=== PATIENT | female | born 1940 | race Caucasian/White ===

== ENCOUNTER 2018-08-17 19:20 | Inpatient (IN) | payer MEDICARE ==
[2018-08-17] MEDS ORDERED: OXYCODONE-ACETAMINOPHEN 5-325 MG TABLET PO ONE (20:05)
--- NOTE | 2018-08-17 20:08 | ER Document Report ---
ED Fall - General Chief Complaint: Fall Stated Complaint: FALL Time Seen by Provider: 08/17/18 19:55 Mode of Arrival: Stretcher Information source: Patient - HPI Patient complains to provider of: fall, left leg pain Occurred: Just prior to arrival Where: Home Context: Lost balance Associated symptoms: Became dizzy/fainted Location of injury/pain: Head, Hip, Knee, Thigh Quality of pain: Achy Severity: Moderate Pain Level: 4 Notes: Patient is a 77-year-old female presenting to the emergency room status post fall at home, states she has dizzy spells and falls a lot, today she felt dizzy, fell to her left side and was unable to get up secondary to pain in her left hip and thigh, she does report that she had her head but denies any loss of consciousness, no headache, no vision changes or vomiting, she does report tingling sensation in her upper extremities - Related data Allergies/Adverse Reactions: No Known Allergies Allergy (Verified 08/17/18 19:38) Past Medical History - General Information source: Patient - Social History Smoking Status: Unknown if Ever Smoked Family History: Reviewed & Not Pertinent Review of Systems - Review of Systems Constitutional: No symptoms reported EENT: No symptoms reported Cardiovascular: Dizziness Respiratory: No symptoms reported Gastrointestinal: No symptoms reported Genitourinary: No symptoms reported Female Genitourinary: No symptoms reported Musculoskeletal: See HPI Skin: No symptoms reported Hematologic/Lymphatic: No symptoms reported Neurological/Psychological: Tingling -: Yes All other systems reviewed and negative Physical Exam - Vital signs Vitals: Resp Pulse Ox 20 99 08/17/18 19:30 08/17/18 19:30 Interpretation: Normal - General General appearance: Appears well, Alert - HEENT Head: Normocephalic, Atraumatic Eyes: Normal Conjunctiva: Normal Extraocular movements intact: Yes Eyelashes: Normal Pupils: PERRL Neck: Other - Tender to palpate in right paraspinal musculature down into the right trapezius muscle - Respiratory Respiratory status: No respiratory distress Chest status: Nontender Breath sounds: Normal Chest palpation: Normal - Cardiovascular Rhythm: Regular Heart sounds: Normal auscultation Murmur: No - Abdominal Inspection: Normal Distension: No distension Bowel sounds: Normal Tenderness: Nontender Organomegaly: No organomegaly - Back Back: Normal, Nontender - Extremities General upper extremity: Normal inspection, Nontender, Normal color, Normal ROM, Normal temperature General lower extremity: Normal temperature. No: Sho's sign Hip: Tender - Tender to palpate in left hip radiating down into the femur, pain with range of motion testing, distal sensation and motor is intact with 2+ DP pulses - Neurological Neuro grossly intact: Yes Cognition: Normal Orientation: AAOx4 [place] Coma Scale Eye Opening: Spontaneous [place] Coma Scale Verbal: Oriented [place] Coma Scale Motor: Obeys Commands [place] Coma Scale Total: 15 Speech: Normal Motor strength normal: LUE, RUE, LLE, RLE Sensory: Normal - Psychological Associated symptoms: Normal affect, Normal mood - Skin Skin Temperature: Warm Skin Moisture: Dry Skin Color: Normal Course - Re-evaluation Re-evalutation: 08/17/18 21:24 Patient discussed with on-call orthopedics, Dr. Rae who agrees to consult and see patient in the morning 08/17/18 21:29 Plan to admit was discussed with patient and at bedside who are in agreement, plan was discussed with hospitalist to request a call back when patient's labs are completed 08/17/18 22:30 Patient was discussed with the hospitalist once again who has already placed orders for admission, he has no additional questions at this time - Vital Signs Vital signs: Temp Pulse Resp BP Pulse Ox 98.2 F 15 150/72 H 99 08/17/18 19:36 08/17/18 23:01 08/17/18 23:01 08/17/18 23:01 - Laboratory Result Diagrams: 08/17/18 21:35 08/17/18 21:35 Laboratory results interpreted by me: 08/17/18 08/17/18 08/17/18 21:35 21:35 21:35 Hgb 11.6 L Hct 33.9 L BUN 33 H Est GFR ( Amer) 58 L Est GFR (Non-Af Amer) 48 L Glucose 173 H Creatine Kinase 28 L Total Protein 6.1 L Urine Nitrite Ur Leukocyte Esterase Urine Ascorbic Acid 08/17/18 22:11 Hgb Hct BUN Est GFR ( Amer) Est GFR (Non-Af Amer) Glucose Creatine Kinase Total Protein Urine Nitrite POSITIVE H Ur Leukocyte Esterase TRACE H Urine Ascorbic Acid 40 H - Diagnostic Test Radiology reviewed: Image reviewed, Reports reviewed Discharge - Discharge Clinical Impression: Hip fracture Qualifiers: Encounter type: initial encounter Fracture type: closed Laterality: left Qualified Code(s): S72.002A - Fracture of unspecified part of neck of left femur, initial encounter for closed fracture Condition: Stable Disposition: ADMITTED INPATIENT Admitting Provider: Hospitalist Unit Admitted: Medical Floor
--- NOTE | 2018-08-17 21:20 | RADIOLOGY REPORT (SQ) ---
EXAM DESCRIPTION: XR FEMUR 2 VIEWS, XR HIP 2 OR MORE VIEWS, XR KNEE 4 OR MORE VIEWS COMPLETED DATE/TME: 08/17/2018 20:05 CLINICAL HISTORY: 77 years Female, fall COMPARISON: None. 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 There is either a large loose body or an old fracture of the inferior pole patella. No acute fracture or dislocation of the knee. There is a mildly displaced intertrochanteric femoral neck fracture. No dislocation. Mild degenerative changes in both hip joints. Soft tissues are unremarkable except for vascular calcifications. IMPRESSION: Mildly displaced intratrochanteric left femoral neck fracture.
--- NOTE | 2018-08-17 21:22 | RADIOLOGY REPORT (SQ) ---
XR CHEST 1 VIEW HISTORY: Fall. COMPARISON: None. FINDINGS: The heart size is mildly enlarged with pacemaker intact. The lungs are clear. No pleural effusion or pneumothorax is identified. IMPRESSION: No acute cardiopulmonary abnormality.
--- NOTE | 2018-08-17 21:26 | RADIOLOGY REPORT (SQ) ---
EXAM DESCRIPTION: CT HEAD WITHOUT IV CONTRAST COMPLETED DATE/TME: 08/17/2018 20:05 CLINICAL HISTORY: 77 years, Female, injury COMPARISON: None. TECHNIQUE: CT brain without contrast. This exam was performed according to our departmental dose optimization program which includes use of automated exposure control, adjustment of the mA and/or kV according to patient size and/or use of iterative reconstruction technique. Images stored on PACS. All CT scanners at this facility use dose modulation, iterative reconstruction, and/or weight based dosing when appropriate to reduce radiation dose to as low as reasonably achievable (ALARA). [facility]: Dose Right [facility]: CareDose [facility]: Dose Right [facility]: Teradose 4D [facility]: [employer] LIMITATIONS: None. FINDINGS: Multifocal regions of patchy hypoattenuation are present in a subcortical and periventricular deep white matter distribution, nonspecific; however, most likely represent small vessel ischemic disease, age indeterminate. The ventricles, and sulci are enlarged compatible with underlying volume loss. The medrano-white matter differentiation is preserved. There is no mass effect, midline shift, intra- or extra-axial fluid collection/acute hemorrhage. The osseous structures are unremarkable. The paranasal sinuses and mastoid air cells are clear. Incidentally noted severe narrowing at the level of the craniocervical junction secondary to dense callus formation and irregularity, hypertrophy of the clivus raising the question of sequela of prior trauma, congenital etiology and/or inflammatory arthropathy. IMPRESSION: 1. No acute intracranial abnormalities. Nonspecific white matter change most likely small vessel ischemic disease, age indeterminate. 2. CT is insensitive for early evaluation of acute stroke. If there is clinical concern for acute ischemia, an MRI may be considered. 3. Incidentally noted severe narrowing at the level of the craniocervical junction secondary to dense callus formation and irregularity, hypertrophy of the clivus raising the question of sequela of prior trauma, congenital etiology and/or inflammatory arthropathy. TECHNICAL DOCUMENTATION: Quality ID # [id number]: Final reports with documentation of one or more dose reduction techniques (e.g., Automated exposure control, adjustment of the mA and/or kV according to patient size, use of iterative reconstruction technique) copyright 2011 [employer]- All Rights Reserved
--- NOTE | 2018-08-17 21:33 | RADIOLOGY REPORT (SQ) ---
EXAM DESCRIPTION: CT CERVICAL SPINE WITHOUT IV CONTRAST COMPLETED DATE/TME: 08/17/2018 20:05 CLINICAL HISTORY: 77 years, Female, injury COMPARISON: None. TECHNIQUE: Cervical spine CT was performed without contrast. Multiplanar reformatted images were provided. This exam was performed according to our departmental dose optimization program which includes use of automated exposure control, adjustment of the mA and/or kV according to patient size and/or use of iterative reconstruction technique. Images stored on PACS. All CT scanners at this facility use dose modulation, iterative reconstruction, and/or weight based dosing when appropriate to reduce radiation dose to as low as reasonably achievable (ALARA). [facility]: Dose Right [facility]: CareDose [facility]: Dose Right [facility]: Teradose 4D [facility]: [employer] LIMITATIONS: None. FINDINGS: Incidentally noted severe narrowing at the level of the craniocervical junction secondary to dense pannus formation and irregularity, hypertrophy of the clivus raising the question of sequela of prior trauma, congenital etiology and/or inflammatory arthropathy. Trace anterolisthesis of C3 relative to C4 suspected secondary to facet hypertrophy at that level There is otherwise normal alignment of the cervical spine without fracture or subluxation. The facets are normal in alignment bilaterally. The posterior elements including the spinous processes are intact. Straightening of the cervical spine which may be secondary to positioning for the examination. Morphology and attenuation of the vertebral bodies and intervertebral disc spaces is compatible with multilevel degenerative change. Mild posterior disk bulge extending into the central spinal canal by approximately 4 mm present at the C4-5 vertebral level. Posterior osseous spurring and disk bulge with at least mild central spinal canal narrowing present at the C5-6 and C6-7 vertebral levels. Multilevel moderate to severe neural foraminal narrowing present throughout the cervical spine involving the C5-6, C6-7 vertebral levels secondary to uncovertebral joint and facet hypertrophy. Bilateral facet hypertrophy throughout the cervical spine. The pre-and paravertebral soft tissues are within normal limits. The airway is patent. Extraspinal imaging is within normal limits. IMPRESSION: 1. Straightening of the cervical spine which may be secondary to positioning for the examination versus spasm. 2. Multilevel degenerative change without fracture or acute subluxation. 3. Incidentally noted severe narrowing at the level of the craniocervical junction secondary to dense pannus formation and irregularity, hypertrophy of the clivus raising the question of sequela of prior trauma, congenital etiology and/or inflammatory arthropathy. If not previously performed, follow-up evaluation with MRI may be considered. TECHNICAL DOCUMENTATION: Quality ID # [id number]: Final reports with documentation of one or more dose reduction techniques (e.g., Automated exposure control, adjustment of the mA and/or kV according to patient size, use of iterative reconstruction technique) copyright 2011 [employer]- All Rights Reserved
[2018-08-17 21:44] LABS: ABSOLUTE BASOPHILS # (AUTO) 0.1 10^3/uL (0.0-0.2); ABSOLUTE EOSINOPHILS # (AUTO) 0.1 10^3/uL (0.0-0.6); ABSOLUTE LYMPHOCYTES (AUTO) 1.5 10^3/uL (0.5-4.7); ABSOLUTE MONOCYTES (AUTO) 0.5 10^3/uL (0.1-1.4); ABSOLUTE NEUT (AUTO) 6.4 10^3/uL (1.7-8.2); BASOPHILS % (AUTO) 0.7 % (0-2); EOSINOPHILS % (AUTO) 0.7 % (0-6); HEMATOCRIT 33.9 % (36.0-47.0); HEMOGLOBIN 11.6 g/dL (12.0-15.5); LYMPHOCYTES % (AUTO) 17.3 % (13-45); MEAN CORPUSCULAR HEMOGLOBIN 29.9 pg (27.0-33.4); MEAN CORPUSCULAR HGB CONC 34.1 g/dL (32.0-36.0); MEAN CORPUSCULAR VOLUME 88 fl (80-97); MONOCYTES % (AUTO) 6.4 % (3-13); PLATELET COUNT 199 10^3/uL (150-450); RED BLOOD COUNT 3.86 10^6/uL (3.72-5.28); RED CELL DISTRIBUTION WIDTH 13.3 % (11.5-14.0); SEGMENTED NEUTROPHILS % (AUTO) 74.9 % (42-78); TOTAL CELLS COUNTED % (AUTO) 100 %; WHITE BLOOD COUNT 8.5 10^3/uL (4.0-10.5)
[2018-08-17] MEDS ORDERED: GLUCAGON,HUMAN RECOMB 1 MG INJ IM PRN (21:46)
[2018-08-17] MEDS ORDERED: DEXTROSE 40% GEL 15 GM TUBE PO PRN ×2 (21:46)
[2018-08-17] MEDS ORDERED: IPRATROPIUM/ALBUTEROL 0.5-2.5 MG/3 ML AMPUL NEB PRN (21:46)
[2018-08-17] MEDS ORDERED: DEXTROSE 50%-WATER 25 GM/50 ML DISP.SYRIN IV PRN ×2 (21:46)
[2018-08-17] MEDS ORDERED: MAG HYDROX/AL HYDROX/SIMETH SUSP 30 ML UDCUP PO PRN (21:46)
[2018-08-17 21:55] LABS: INTERNATIONAL RATION (INR) 0.93; PROTHROMBIN TIME 12.9 SEC (11.4-15.4)
[2018-08-17 21:56] LABS: PARTIAL THROMBOPLASTIN TIME 24.8 SEC (23.5-35.8)
[2018-08-17 22:00] LABS: ALANINE AMINOTRANSFERASE 17 U/L (9-52); ALBUMIN 3.5 g/dL (3.5-5.0); ALKALINE PHOSPHATASE 67 U/L (38-126); ANION GAP 6 (5-19); ASPARTATE AMINO TRANSFERASE 18 U/L (14-36); BILIRUBIN,DIRECT 0.3 mg/dL (0.0-0.4); BILIRUBIN,TOTAL 0.8 mg/dL (0.2-1.3); BLOOD UREA NITROGEN 33 mg/dL (7-20); CALCIUM 9.3 mg/dL (8.4-10.2); CARBON DIOXIDE 25 mmol/L (22-30); CHLORIDE 107 mmol/L (98-107); GLUCOSE 173 mg/dL (75-110); POTASSIUM 4.1 mmol/L (3.6-5.0); TOTAL PROTEIN 6.1 g/dL (6.3-8.2)
[2018-08-17] MEDS: HYDROCODONE/ACETAMINOPHEN 7.5-325 MG TABLET PO PRN (22:13)
[2018-08-17] MEDS: HEPARIN SOD (PORCINE) 5,000 UNIT/ML 1 ML SYRINGE SUBCUT SCH (22:14)
[2018-08-17 22:25] LABS: APPEARANCE,URINE CLOUDY; BILIRUBIN,URINE NEGATIVE (NEGATIVE); COLOR,URINE YELLOW; GLUCOSE, URINE NEGATIVE (NEGATIVE); KETONES,URINE NEGATIVE (NEGATIVE); LEUKOCYTE ESTERASE,URINE TRACE (NEGATIVE); NITRITE,URINE POSITIVE (NEGATIVE); PROTEIN,URINE NEGATIVE (NEGATIVE); URINE SPECIFIC GRAVITY 1.013; UROBILINOGEN,URINE NEGATIVE mg/dL (<2.0)
[2018-08-17 22:36] LABS: CREATINE KINASE MB 0.71 ng/mL (<4.55); TROPONIN I 0.028 ng/mL
[2018-08-18] MEDS ORDERED: NORMAL SALINE 1000 ML 1,000 ML IV ONE (02:30)
[2018-08-18 03:35] LABS: ABSOLUTE BASOPHILS # (AUTO) 0.1 10^3/uL (0.0-0.2); ABSOLUTE EOSINOPHILS # (AUTO) 0.1 10^3/uL (0.0-0.6); ABSOLUTE LYMPHOCYTES (AUTO) 1.4 10^3/uL (0.5-4.7); ABSOLUTE MONOCYTES (AUTO) 0.6 10^3/uL (0.1-1.4); ABSOLUTE NEUT (AUTO) 5.5 10^3/uL (1.7-8.2); BASOPHILS % (AUTO) 0.8 % (0-2); EOSINOPHILS % (AUTO) 0.8 % (0-6); HEMATOCRIT 31.9 % (36.0-47.0); LYMPHOCYTES % (AUTO) 18.3 % (13-45); MEAN CORPUSCULAR HGB CONC 34.4 g/dL (32.0-36.0); MEAN CORPUSCULAR VOLUME 87 fl (80-97); PLATELET COUNT 185 10^3/uL (150-450); RED BLOOD COUNT 3.66 10^6/uL (3.72-5.28); RED CELL DISTRIBUTION WIDTH 13.5 % (11.5-14.0); SEGMENTED NEUTROPHILS % (AUTO) 72.1 % (42-78); TOTAL CELLS COUNTED % (AUTO) 100 %; WHITE BLOOD COUNT 7.6 10^3/uL (4.0-10.5)
[2018-08-18 03:58] LABS: ANION GAP 6 (5-19); BLOOD UREA NITROGEN 32 mg/dL (7-20); CARBON DIOXIDE 26 mmol/L (22-30); CHLORIDE 108 mmol/L (98-107); CREATINE KINASE 29 U/L (30-135); GLUCOSE 159 mg/dL (75-110); POTASSIUM 4.2 mmol/L (3.6-5.0); SODIUM 139.9 mmol/L (137-145)
[2018-08-18 04:09] LABS: CREATINE KINASE MB 0.74 ng/mL (<4.55); TROPONIN I 0.024 ng/mL
[2018-08-18] MEDS: HEPARIN SOD (PORCINE) 5,000 UNIT/ML 1 ML SYRINGE SUBCUT SCH ×3 (05:08→22:30)
[2018-08-18] MEDS: HYDROCODONE/ACETAMINOPHEN 7.5-325 MG TABLET PO PRN (05:19)
--- NOTE | 2018-08-18 06:31 | PDOC H&P ---
History of Present Illness Admission Date/PCP: 08/17/18 22:20 YAMILKA EPSTEIN MD Patient complains of: Fall c left hip pain History of Present Illness: VALE SOTO is a 77 year old female with a past medical history of congestive heart failure, coronary artery disease, rheumatic heart disease, permanent pacemaker, diabetes and dizziness with recurrent falls. Patient presents after a fall at home after feeling dizzy she fell to her left side and was unable to stand or bear weight. She denies recent change of medication, focal weakness, loss of consciousness, headache, blurred vision, nausea or vomiting. In the emergency room she is found to have a minimally displaced left trochanteric femoral fracture and referred to the hospitalist for admission. Past Medical History Cardiac Medical History: Reports: Coronary Artery Disease, Myocardial Infarction, Other - Rheumatic heart disease Endocrine Medical History: Reports: Diabetes Mellitus Type 2 Psychiatric Medical History: Denies: Depression Past Surgical History Past Surgical History: Reports: Pacemaker Social History Information Source: Patient, Emergency Med Personnel, [facility] Records Lives with: Alone Smoking Status: Never Smoker Frequency of Alcohol Use: None Hx Recreational Drug Use: No Drugs: None Hx Prescription Drug Abuse: No - Advance Directive Resuscitation Status: Full Code Family History Family History: Hypertension Parental Family History Reviewed: Yes Children Family History Reviewed: Yes Sibling(s) Family History Reviewed.: Yes Medication/Allergy Allergies/Adverse Reactions: No Known Allergies Allergy (Verified 08/17/18 19:38) Review of Systems Constitutional: PRESENT: as per HPI, weakness - Recurrent dizziness with falls upon standing. ABSENT: chills, fever(s), headache(s), weight gain, weight loss Eyes: ABSENT: visual disturbances Ears: ABSENT: hearing changes Cardiovascular: ABSENT: chest pain, dyspnea on exertion, edema, orthropnea, palpitations Respiratory: ABSENT: cough, hemoptysis Gastrointestinal: ABSENT: abdominal pain, constipation, diarrhea, hematemesis, hematochezia, nausea, vomiting Genitourinary: ABSENT: dysuria, hematuria Musculoskeletal: ABSENT: joint swelling Integumentary: ABSENT: rash, wounds Neurological: ABSENT: abnormal gait, abnormal speech, confusion, dizziness, focal weakness, syncope Psychiatric: ABSENT: anxiety, depression, homidical ideation, suicidal ideation Endocrine: ABSENT: cold intolerance, heat intolerance, polydipsia, polyuria Hematologic/Lymphatic: ABSENT: easy bleeding, easy bruising Physical Exam Vital Signs: Temp Pulse Resp BP Pulse Ox 98.1 F 19 141/60 H 69 L 08/18/18 00:05 08/18/18 00:05 08/18/18 00:05 08/18/18 00:05 Intake & Output 08/16/18 08/17/18 08/18/18 11:59 11:59 11:59 Weight 58.2 kg General appearance: PRESENT: cooperative, mild distress, thin, well-developed, well-nourished Head exam: PRESENT: atraumatic, normocephalic Eye exam: PRESENT: conjunctiva pink, EOMI, PERRLA. ABSENT: scleral icterus Ear exam: PRESENT: normal external ear exam Mouth exam: PRESENT: moist, tongue midline Neck exam: ABSENT: carotid bruit, JVD, lymphadenopathy, thyromegaly Respiratory exam: PRESENT: clear to auscultation joann. ABSENT: rales, rhonchi, wheezes Cardiovascular exam: PRESENT: RRR, systolic murmur. ABSENT: diastolic murmur, rubs Pulses: PRESENT: normal dorsalis pedis pul Vascular exam: PRESENT: normal capillary refill GI/Abdominal exam: PRESENT: normal bowel sounds, soft. ABSENT: distended, guarding, mass, organolmegaly, rebound, tenderness Rectal exam: PRESENT: deferred Extremities exam: PRESENT: full ROM, tenderness - Left upper extremity pain in range of motion. ABSENT: calf tenderness, clubbing, pedal edema Neurological exam: PRESENT: alert, awake, oriented to person, oriented to place, oriented to time, oriented to situation, CN II-XII grossly intact. ABSENT: mo tor sensory deficit Psychiatric exam: PRESENT: appropriate affect, normal mood. ABSENT: homicidal ideation, suicidal ideation Skin exam: PRESENT: dry, intact, warm. ABSENT: cyanosis, rash Results Laboratory Results: 08/18/18 03:27 08/18/18 03:27 08/17/18 08/17/18 08/17/18 21:35 21:35 22:11 WBC 8.5 RBC 3.86 Hgb 11.6 L Hct 33.9 L MCV 88 MCH 29.9 MCHC 34.1 RDW 13.3 Plt Count 199 Seg Neutrophils % 74.9 Lymphocytes % 17.3 Monocytes % 6.4 Eosinophils % 0.7 Basophils % 0.7 Absolute Neutrophils 6.4 Absolute Lymphocytes 1.5 Absolute Monocytes 0.5 Absolute Eosinophils 0.1 Absolute Basophils 0.1 Sodium 138.0 Potassium 4.1 Chloride 107 Carbon Dioxide 25 Anion Gap 6 BUN 33 H Creatinine 1.11 Est GFR ( Amer) 58 L Est GFR (Non-Af Amer) 48 L Glucose 173 H Calcium 9.3 Total Bilirubin 0.8 AST 18 ALT 17 Alkaline Phosphatase 67 Total Protein 6.1 L Albumin 3.5 Urine Color YELLOW Urine Appearance CLOUDY Urine pH 5.0 Ur Specific [place] 1.013 Urine Protein NEGATIVE Urine Glucose (UA) NEGATIVE Urine Ketones NEGATIVE Urine Blood NEGATIVE Urine Nitrite POSITIVE H Ur Leukocyte Esterase TRACE H Urine WBC (Auto) 7 Urine RBC (Auto) 1 08/18/18 08/18/18 03:27 03:27 WBC 7.6 RBC 3.66 L Hgb 11.0 L Hct 31.9 L MCV 87 MCH 30.0 MCHC 34.4 RDW 13.5 Plt Count 185 Seg Neutrophils % 72.1 Lymphocytes % 18.3 Monocytes % 8.0 Eosinophils % 0.8 Basophils % 0.8 Absolute Neutrophils 5.5 Absolute Lymphocytes 1.4 Absolute Monocytes 0.6 Absolute Eosinophils 0.1 Absolute Basophils 0.1 Sodium 139.9 Potassium 4.2 Chloride 108 H Carbon Dioxide 26 Anion Gap 6 BUN 32 H Creatinine 1.06 Est GFR ( Amer) > 60 Est GFR (Non-Af Amer) 50 L Glucose 159 H Calcium 9.0 Total Bilirubin AST ALT Alkaline Phosphatase Total Protein Albumin Urine Color Urine Appearance Urine pH Ur Specific [place] Urine Protein Urine Glucose (UA) Urine Ketones Urine Blood Urine Nitrite Ur Leukocyte Esterase Urine WBC (Auto) Urine RBC (Auto) 08/17/18 08/17/18 08/18/18 21:35 21:35 03:27 Creatine Kinase 28 L 29 L CK-MB (CK-2) 0.71 Troponin I 0.028 08/18/18 03:27 Creatine Kinase CK-MB (CK-2) 0.74 Troponin I 0.024 Impressions: Cervical Spine CT 08/17/18 20:05 IMPRESSION: 1. Straightening of the cervical spine which may be secondary to positioning for the examination versus spasm. 2. Multilevel degenerative change without fracture or acute subluxation. 3. Incidentally noted severe narrowing at the level of the craniocervical junction secondary to dense pannus formation and irregularity, hypertrophy of the clivus raising the question of sequela of prior trauma, congenital etiology and/or inflammatory arthropathy. If not previously performed, follow-up evaluation with MRI may be considered. TECHNICAL DOCUMENTATION: Quality ID # [id number]: Final reports with documentation of one or more dose reduction techniques (e.g., Automated exposure control, adjustment of the mA and/or kV according to patient size, use of iterative reconstruction technique) copyright 2010 [email or web address]- All Rights Reserved Femur X-Ray 08/17/18 20:05 IMPRESSION: Mildly displaced intratrochanteric left femoral neck fracture. Head CT 08/17/18 20:05 IMPRESSION: 1. No acute intracranial abnormalities. Nonspecific white matter change most likely small vessel ischemic disease, age indeterminate. 2. CT is insensitive for early evaluation of acute stroke. If there is clinical concern for acute ischemia, an MRI may be considered. 3. Incidentally noted severe narrowing at the level of the craniocervical junction secondary to dense callus formation and irregularity, hypertrophy of the clivus raising the question of sequela of prior trauma, congenital etiology and/or inflammatory arthropathy. TECHNICAL DOCUMENTATION: Quality ID # [id number]: Final reports with documentation of one or more dose reduction techniques (e.g., Automated exposure control, adjustment of the mA and/or kV according to patient size, use of iterative reconstruction technique) copyright 2010 [email or web address]- All Rights Reserved Hip X-Ray 08/17/18 20:05 IMPRESSION: Mildly displaced intratrochanteric left femoral neck fracture. Knee X-Ray 08/17/18 20:05 IMPRESSION: Mildly displaced intratrochanteric left femoral neck fracture. Chest X-Ray 08/17/18 20:34 IMPRESSION: No acute cardiopulmonary abnormality. Assessment & Plan - Diagnosis (1) Hip fracture Qualifiers: Encounter type: initial encounter Fracture type: closed Laterality: left Qualified Code(s): S72.002A - Fracture of unspecified part of neck of left femur, initial encounter for closed fracture Is this a current diagnosis for this admission?: Yes Plan: Symptomatic management, follow-up cardiology orthopedic consult (2) Congestive heart failure Is this a current diagnosis for this admission?: Yes Plan: Patient has an extensive but unclear cardiac history including coronary artery disease, congestive heart failure, rheumatic heart disease status post permanent pacemaker placement, patient denies current medication with exception to metformin. That said she appears compensated but concern for recurrent, increasing frequency of falls. Follow-up cardiology consult (3) Diabetes Is this a current diagnosis for this admission?: Yes Plan: Hold outpatient metformin, Humalog sliding scale every 6 hours as needed (4) Coronary artery disease Is this a current diagnosis for this admission?: Yes Plan: Apparently without current medications, unclear history will obtain records, follow-up cardiology consult - Time Time Spent: 30 to 50 Minutes - Inpatient Certification Medical Necessity: Need Close Monitoring Due to Risk of Patient Decompensation
[2018-08-18] MEDS: DOCUSATE SODIUM 100 MG CAPSULE PO SCH ×2 (10:05→17:32)
[2018-08-18 11:01] LABS: CREATINE KINASE MB 0.85 ng/mL (<4.55); TROPONIN I 0.028 ng/mL
[2018-08-18] MEDS ORDERED: DEXTROSE 5%-1/2 NORMAL SALINE 1,000 ML IV PRN (11:43)
--- NOTE | 2018-08-18 13:40 | EKG REPORT ---
SEVERITY:- ABNORMAL ECG - ATRIAL-SENSED VENTRICULAR-PACED RHYTHM : Confirmed by: Martha Zheng MD 18-Aug-2018 13:38:04
--- NOTE | 2018-08-18 14:43 | XCELERA REPORT ---
[address] [address] Transthoracic Echocardiogram Report Name: VALE SOTO Age: 77 yrs Gender: Female : 1940 Patient Status: Inpatient Patient Location: [address] [place] [address] Study Date: 08/18/2018 11:34 AM Height: 61 in Weight: 128 lb BSA: 1.6 m2 Procedure: A two-dimensional transthoracic echocardiogram with color flow and Doppler was performed. Study Quality: Fair. Reason For Study: Murmur / pre-op History: MURMUR / PRE-OP. Ordering Physician: SOCORRO HAYES Performed By: Vesta Kingston Interpretation Summary The left ventricle is moderately to severly dilated. There is normal left ventricular wall thickness. LV EF is less than 25% Left ventricular systolic function is severely reduced. There is severe global hypokinesis of the left ventricle. There is no thrombus. There is no ventricular septal defect visualized. The right ventricle is normal in size and function. There is a pacemaker lead in the right ventricle. The right atrium is normal. The left atrium is moderately dilated. There is mild to moderate mitral annular calcification. There is no evidence of mitral valve prolapse. There is no vegetation seen on the mitral valve. There is no mitral valve stenosis. There is a moderate amount of mitral regurgitation There is no aortic valvular vegetation. There is aortic sclerosis without aortic stenosis. There is no aortic valve stenosis There is no LVOT obstruction. No aortic regurgitation is present. There is no tricuspid stenosis. There is a mild amount of tricuspid regurgitation No significant pulmonary hypertension.RVSP is 28 to 33 mm of Hg , with RA mean of 5 to 10. There is no pulmonic valvular stenosis. There is a mild to moderate amount of pulmonic regurgitation The aortic root is normal size. The inferior vena cava appeared normal and decreased > 50% with respiration (RAP 5-10 mmHg) There is no pericardial effusion. MMode/2D Measurements & Calculations RVDd: 2.5 cm LVIDd: 6.0 cm FS: 11.0 % Ao root diam: 2.8 cm IVSd: 0.98 cm LVIDs: 5.3 cm EDV(Teich): 179.8 ml Ao root area: 6.3 cm2 LVPWd: 0.99 cm ESV(Teich): 137.6 ml LA dimension: 4.8 cm EF(Teich): 23.5 % Doppler Measurements & Calculations MV E max charlene: MV P1/2t max charlene: Ao V2 max: LV V1 max P.3 cm/sec 93.3 cm/sec 131.9 cm/sec 5.2 mmHg MV A max charlene: MV P1/2t: 44.5 msec Ao max PG: LV V1 max: 87.9 cm/sec MVA(P1/2t): 4.9 cm2 7.0 mmHg 114.0 cm/sec MV E/A: 1.1 MV dec slope: 613.6 cm/sec2 PA V2 max: PI end-d charlene: TR max charlene: MV P1/2t-pr_phl: 82.9 cm/sec 238.9 cm/sec 241.1 cm/sec 50.3 msec PA max PG: TR max P.8 mmHg 23.2 mmHg Left Ventricle The left ventricle is moderately to severly dilated. There is normal left ventricular wall thickness. LV EF is less than 25%. Left ventricular systolic function is severely reduced. There is severe global hypokinesis of the left ventricle. There is no thrombus. There is no ventricular septal defect visualized. Right Ventricle The right ventricle is normal in size and function. There is a pacemaker lead in the right ventricle. Atria The right atrium is normal. The left atrium is moderately dilated. Mitral Valve There is mild to moderate mitral annular calcification. There is no evidence of mitral valve prolapse. There is no vegetation seen on the mitral valve. There is no mitral valve stenosis. There is a moderate amount of mitral regurgitation. Aortic Valve There is no aortic valvular vegetation. There is aortic sclerosis without aortic stenosis. There is no aortic valve stenosis. There is no LVOT obstruction. No aortic regurgitation is present. Tricuspid Valve There is no tricuspid stenosis. There is a mild amount of tricuspid regurgitation. No significant pulmonary hypertension.RVSP is 28 to 33 mm of Hg , with RA mean of 5 to 10. Pulmonic Valve There is no pulmonic valvular stenosis. There is a mild to moderate amount of pulmonic regurgitation. Great Vessels The aortic root is normal size. The inferior vena cava appeared normal and decreased > 50% with respiration (RAP 5-10 mmHg). Effusions There is no pericardial effusion. : SOCORRO HAYES > Socorro Hayes
--- NOTE | 2018-08-18 16:41 | Progress Note ---
Provider Note Provider Note: PRELIMINARY CARDIOLOGY NOTE by Dr. Martha Zheng on 08/18/2018. Patient interviewed and examined. Also her records from [place] were reviewed. Formal consult to follow. IMPRESSION: 1. Coronary artery disease, history of UT, and history of coronary bypass graft surgery, without angina. 2. Ischemic cardiomyopathy with severely reduced LV ejection fraction. Patient is well compensated at present. 3. History of AICD placement: No recent firing of AICD. 4. Diabetes mellitus type 2 [id number]. 5. Accidental fall and fracture of right hip. Patient for surgery. RECOMMENDATION: 1. The patient will be moderate to high cardiac risk for this procedure. Recommend spinal anesthesia. Postoperatively we will place the patient in 3 W. or 3 S. and monitor the patient's rhythm on telemetry, and get serial EKGs and enzymes. We will also watch for development of any arrhythmias or congestive heart failure. 2. The patient is not on any anti-CAD or anti-ischemic cardiomyopathy medications. Would recommend postoperatively start the patient on aspirin 81 mg p.o. daily, BELEN inhibitor or ARB, and a beta-rosario, such as Toprol-XL. Will follow with you. Discussed with the anesthesiologist. Discussed with the hospitalist taking care of the patient.
--- NOTE | 2018-08-18 16:46 | PDOC PROGRESS REPORT ---
Subjective Progress Note for:: 08/18/18 Subjective:: This is a 77 year old female with a past medical history of congestive heart failure, coronary artery disease, rheumatic heart disease, permanent pacemaker, diabetes and history of recurrent falls who fell at home and sustained a minimally displaced left trochanteric femoral fracture. Patient says she fell "like she used to", that she was trying to ambulate and had recurrence of her "head spinning" like she often has and fell on the floor. No acute event overnight. Upon encounter, she say her left hip pain is controlled. She denies chest pain, SOB or palpitations. No fever or chills. Reason For Visit: LEFT HIP FRACTURE, DIABETES Physical Exam Vital Signs: Temp Pulse Resp BP Pulse Ox 98.5 F 72 16 127/92 H 96 08/18/18 14:25 08/18/18 15:34 08/18/18 15:34 08/18/18 14:25 08/18/18 15:34 Intake & Output 08/17/18 08/18/18 08/19/18 06:59 06:59 06:59 Intake Total 1000 Balance 1000 Weight 128 lb 4.944 oz General appearance: PRESENT: no acute distress, well-developed, well-nourished Head exam: PRESENT: atraumatic, normocephalic Eye exam: PRESENT: conjunctiva pink, EOMI, PERRLA. ABSENT: scleral icterus Ear exam: PRESENT: normal external ear exam Mouth exam: PRESENT: moist, tongue midline Neck exam: ABSENT: carotid bruit, JVD, lymphadenopathy, thyromegaly Respiratory exam: PRESENT: clear to auscultation joann. ABSENT: rales, rhonchi, wheezes Cardiovascular exam: PRESENT: RRR. ABSENT: bradycardia, irregular rhythm Pulses: PRESENT: normal dorsalis pedis pul GI/Abdominal exam: PRESENT: normal bowel sounds, soft. ABSENT: distended, guarding, mass, organolmegaly, rebound, tenderness Rectal exam: PRESENT: deferred Neurological exam: PRESENT: alert, awake, oriented to person, oriented to place, oriented to time, oriented to situation Results Laboratory Results: 08/18/18 03:27 08/18/18 03:27 08/17/18 08/17/18 08/17/18 21:35 21:35 22:11 WBC 8.5 RBC 3.86 Hgb 11.6 L Hct 33.9 L MCV 88 MCH 29.9 MCHC 34.1 RDW 13.3 Plt Count 199 Seg Neutrophils % 74.9 Lymphocytes % 17.3 Monocytes % 6.4 Eosinophils % 0.7 Basophils % 0.7 Absolute Neutrophils 6.4 Absolute Lymphocytes 1.5 Absolute Monocytes 0.5 Absolute Eosinophils 0.1 Absolute Basophils 0.1 Sodium 138.0 Potassium 4.1 Chloride 107 Carbon Dioxide 25 Anion Gap 6 BUN 33 H Creatinine 1.11 Est GFR ( Amer) 58 L Est GFR (Non-Af Amer) 48 L Glucose 173 H Calcium 9.3 Total Bilirubin 0.8 AST 18 ALT 17 Alkaline Phosphatase 67 Total Protein 6.1 L Albumin 3.5 Urine Color YELLOW Urine Appearance CLOUDY Urine pH 5.0 Ur Specific [place] 1.013 Urine Protein NEGATIVE Urine Glucose (UA) NEGATIVE Urine Ketones NEGATIVE Urine Blood NEGATIVE Urine Nitrite POSITIVE H Ur Leukocyte Esterase TRACE H Urine WBC (Auto) 7 Urine RBC (Auto) 1 08/18/18 08/18/18 03:27 03:27 WBC 7.6 RBC 3.66 L Hgb 11.0 L Hct 31.9 L MCV 87 MCH 30.0 MCHC 34.4 RDW 13.5 Plt Count 185 Seg Neutrophils % 72.1 Lymphocytes % 18.3 Monocytes % 8.0 Eosinophils % 0.8 Basophils % 0.8 Absolute Neutrophils 5.5 Absolute Lymphocytes 1.4 Absolute Monocytes 0.6 Absolute Eosinophils 0.1 Absolute Basophils 0.1 Sodium 139.9 Potassium 4.2 Chloride 108 H Carbon Dioxide 26 Anion Gap 6 BUN 32 H Creatinine 1.06 Est GFR ( Amer) > 60 Est GFR (Non-Af Amer) 50 L Glucose 159 H Calcium 9.0 Total Bilirubin AST ALT Alkaline Phosphatase Total Protein Albumin Urine Color Urine Appearance Urine pH Ur Specific [place] Urine Protein Urine Glucose (UA) Urine Ketones Urine Blood Urine Nitrite Ur Leukocyte Esterase Urine WBC (Auto) Urine RBC (Auto) 08/17/18 08/17/18 08/18/18 21:35 21:35 03:27 Creatine Kinase 28 L 29 L CK-MB (CK-2) 0.71 Troponin I 0.028 08/18/18 08/18/18 08/18/18 03:27 09:35 09:35 Creatine Kinase 32 CK-MB (CK-2) 0.74 0.85 Troponin I 0.024 0.028 Impressions: Cervical Spine CT 08/17/18 20:05 IMPRESSION: 1. Straightening of the cervical spine which may be secondary to positioning for the examination versus spasm. 2. Multilevel degenerative change without fracture or acute subluxation. 3. Incidentally noted severe narrowing at the level of the craniocervical junction secondary to dense pannus formation and irregularity, hypertrophy of the clivus raising the question of sequela of prior trauma, congenital etiology and/or inflammatory arthropathy. If not previously performed, follow-up evaluation with MRI may be considered. TECHNICAL DOCUMENTATION: Quality ID # [id number]: Final reports with documentation of one or more dose reduction techniques (e.g., Automated exposure control, adjustment of the mA and/or kV according to patient size, use of iterative reconstruction technique) copyright 2010 [employer]- All Rights Reserved Femur X-Ray 08/17/18 20:05 IMPRESSION: Mildly displaced intratrochanteric left femoral neck fracture. Head CT 08/17/18 20:05 IMPRESSION: 1. No acute intracranial abnormalities. Nonspecific white matter change most likely small vessel ischemic disease, age indeterminate. 2. CT is insensitive for early evaluation of acute stroke. If there is clinical concern for acute ischemia, an MRI may be considered. 3. Incidentally noted severe narrowing at the level of the craniocervical junction secondary to dense callus formation and irregularity, hypertrophy of the clivus raising the question of sequela of prior trauma, congenital etiology and/or inflammatory arthropathy. TECHNICAL DOCUMENTATION: Quality ID # [id number]: Final reports with documentation of one or more dose reduction techniques (e.g., Automated exposure control, adjustment of the mA and/or kV according to patient size, use of iterative reconstruction technique) copyright 2010 [employer]- All Rights Reserved Hip X-Ray 08/17/18 20:05 IMPRESSION: Mildly displaced intratrochanteric left femoral neck fracture. Knee X-Ray 08/17/18 20:05 IMPRESSION: Mildly displaced intratrochanteric left femoral neck fracture. Chest X-Ray 08/17/18 20:34 IMPRESSION: No acute cardiopulmonary abnormality. Assessment & Plan - Diagnosis (1) Hip fracture Qualifiers: Encounter type: initial encounter Fracture type: closed Laterality: left Qualified Code(s): S72.002A - Fracture of unspecified part of neck of left femur, initial encounter for closed fracture Is this a current diagnosis for this admission?: Yes Plan: Possible hip fracture repair per ortho. Discussed with cardiology, patient has moderate-high surgical risk due to her severely reduced EF. (2) Congestive heart failure Is this a current diagnosis for this admission?: Yes Plan: Recent echo shows EF of <25%. Cardiology following. Plan to start CAD and CHF meds after surgery. (3) Coronary artery disease Is this a current diagnosis for this admission?: Yes Plan: As per number 2. (4) Diabetes mellitus Qualifiers: Diabetes mellitus type: type 2 Is this a current diagnosis for this admission?: Yes Plan: She takes metformin at home. Will cover with sliding scale for now. - Time Time Spent with patient: 15-24 minutes
[2018-08-18] MEDS ORDERED: MIDAZOLAM 2 MG/2 ML INJ ONE (17:06)
[2018-08-18] MEDS ORDERED: FENTANYL CITRATE INJ/PF 100 MCG/2 ML AMPUL ONE (17:06)
[2018-08-18] MEDS ORDERED: MORPHINE SULFATE 10 MG/ML INJ ONE (17:06)
[2018-08-18] MEDS ORDERED: PROPOFOL INJ 200 MG/20 ML VIAL IV ONE (17:06)
[2018-08-18] MEDS: CEFTRIAXONE 1 GM/D5W RTU 1 GM/50 ML RTUPB IV SCH (17:32)
--- NOTE | 2018-08-18 17:43 | PDOC CONSULTATION ---
Consultation Consult Date: 08/18/18 Consult reason:: Left intertrochanteric hip fracture History of Present Illness Admission Date/PCP: 08/17/18 22:20 YAMILKA EPSTEIN MD History of Present Illness: VALE SOTO is a 77 year old female patient with multiple core morbidities. Patient yesterday trip and mechanical fall and fell onto her left hip. Immediately had pain and inability to get up and weight-bear. Patient was brought to the hospital by EMS and upon evaluation noted to have a left intertrochanteric hip fracture. Patient was admitted under hospitalist service. Orthopedic is consulted. Patient complains of groin pain and left lower extremity deformity. Denies any other extremity injuries or loss of consciousness. Denies any numbness or tingling or paresthesias. Denies any other weakness or deformity. At rest pain is about 3 out of 5 but with any attempted range of motion pain is 5 out of 5 in acute and on the anterior aspect of the groin and thigh. Past Medical History Cardiac Medical History: Reports: Coronary Artery Disease, Myocardial Infarctio n, Other - Rheumatic heart disease Endocrine Medical History: Reports: Diabetes Mellitus Type 2 Psychiatric Medical History: Denies: Depression Past Surgical History Past Surgical History: Reports: Pacemaker Social History Lives with: Alone Smoking Status: Never Smoker Frequency of Alcohol Use: None Hx Recreational Drug Use: No Drugs: None Hx Prescription Drug Abuse: No - Advance Directive Resuscitation Status: Full Code Family History Family History: Hypertension Parental Family History Reviewed: No Children Family History Reviewed: No Sibling(s) Family History Reviewed.: No Medication/Allergy Home Medications: Metformin HCl [Glucophage 500 mg Tablet] 1,000 mg PO BID 08/18/18 Multivitamin [One-Daily Multi-Vitamin] 1 each PO DAILY 08/18/18 Allergies/Adverse Reactions: No Known Allergies Allergy (Verified 08/17/18 19:38) Review of Systems Review of Systems: Constitutional: [PRESENT: as per HPI. ABSENT: chills, fever(s), headache(s), weight gain, weight loss] Eyes: [ABSENT: visual disturbances] Ears: [ABSENT: hearing changes] Cardiovascular: [ABSENT: chest pain, dyspnea on exertion, edema, orthropnea, palpitations] Respiratory: [ABSENT: cough, hemoptysis] Gastrointestinal: [ABSENT: abdominal pain, constipation, diarrhea, hematemesis, hematochezia, nausea, vomiting] Genitourinary: [ABSENT: dysuria, hematuria] Musculoskeletal: [ABSENT: joint swelling] Integumentary: [ABSENT: rash, wounds] Neurological: [ABSENT: abnormal gait, abnormal speech, confusion, dizziness, focal weakness, syncope] Psychiatric: [ABSENT: anxiety, depression, homicidal ideation, suicidal ideation] Endocrine: [ABSENT: cold intolerance, heat intolerance, menstrual abnormalities, polydipsia, polyuria] Hematologic/Lymphatic: [ABSENT: easy bleeding, easy bruising, lymphadenopathy] Physical Exam Vital Signs: Temp Pulse Resp BP Pulse Ox 36.7 C 19 141/60 H 69 L 08/18/18 00:05 08/18/18 00:05 08/18/18 00:05 08/18/18 00:05 Intake & Output 08/17/18 08/18/18 08/19/18 06:59 06:59 06:59 Weight 58.2 kg General appearance: PRESENT: no acute distress Head exam: PRESENT: atraumatic, normocephalic Eye exam: PRESENT: EOMI. ABSENT: nystagmus Neurological exam: PRESENT: alert, awake, oriented to person, oriented to place, oriented to time, oriented to situation Psychiatric exam: PRESENT: appropriate affect, normal mood Skin exam: PRESENT: intact. ABSENT: abrasion, erythema Adult Front & Back Image: 1 - Left lower extremity is mildly shortened and externally rotated. Tender palpation of the groin. Any attempted log roll or flexion is painful. Neurovascular intact distally with soft calf and negative Homans sign Results Laboratory Results: 08/18/18 03:27 08/18/18 03:27 08/17/18 08/17/18 08/17/18 21:35 21:35 22:11 WBC 8.5 RBC 3.86 Hgb 11.6 L Hct 33.9 L MCV 88 MCH 29.9 MCHC 34.1 RDW 13.3 Plt Count 199 Seg Neutrophils % 74.9 Lymphocytes % 17.3 Monocytes % 6.4 Eosinophils % 0.7 Basophils % 0.7 Absolute Neutrophils 6.4 Absolute Lymphocytes 1.5 Absolute Monocytes 0.5 Absolute Eosinophils 0.1 Absolute Basophils 0.1 Sodium 138.0 Potassium 4.1 Chloride 107 Carbon Dioxide 25 Anion Gap 6 BUN 33 H Creatinine 1.11 Est GFR ( Amer) 58 L Est GFR (Non-Af Amer) 48 L Glucose 173 H Calcium 9.3 Total Bilirubin 0.8 AST 18 ALT 17 Alkaline Phosphatase 67 Total Protein 6.1 L Albumin 3.5 Urine Color YELLOW Urine Appearance CLOUDY Urine pH 5.0 Ur Specific [place] 1.013 Urine Protein NEGATIVE Urine Glucose (UA) NEGATIVE Urine Ketones NEGATIVE Urine Blood NEGATIVE Urine Nitrite POSITIVE H Ur Leukocyte Esterase TRACE H Urine WBC (Auto) 7 Urine RBC (Auto) 1 08/18/18 08/18/18 03:27 03:27 WBC 7.6 RBC 3.66 L Hgb 11.0 L Hct 31.9 L MCV 87 MCH 30.0 MCHC 34.4 RDW 13.5 Plt Count 185 Seg Neutrophils % 72.1 Lymphocytes % 18.3 Monocytes % 8.0 Eosinophils % 0.8 Basophils % 0.8 Absolute Neutrophils 5.5 Absolute Lymphocytes 1.4 Absolute Monocytes 0.6 Absolute Eosinophils 0.1 Absolute Basophils 0.1 Sodium 139.9 Potassium 4.2 Chloride 108 H Carbon Dioxide 26 Anion Gap 6 BUN 32 H Creatinine 1.06 Est GFR ( Amer) > 60 Est GFR (Non-Af Amer) 50 L Glucose 159 H Calcium 9.0 Total Bilirubin AST ALT Alkaline Phosphatase Total Protein Albumin Urine Color Urine Appearance Urine pH Ur Specific [place] Urine Protein Urine Glucose (UA) Urine Ketones Urine Blood Urine Nitrite Ur Leukocyte Esterase Urine WBC (Auto) Urine RBC (Auto) 08/17/18 08/17/18 08/18/18 21:35 21:35 03:27 Creatine Kinase 28 L 29 L CK-MB (CK-2) 0.71 Troponin I 0.028 08/18/18 03:27 Creatine Kinase CK-MB (CK-2) 0.74 Troponin I 0.024 Impressions: Cervical Spine CT 08/17/18 20:05 IMPRESSION: 1. Straightening of the cervical spine which may be secondary to positioning for the examination versus spasm. 2. Multilevel degenerative change without fracture or acute subluxation. 3. Incidentally noted severe narrowing at the level of the craniocervical junction secondary to dense pannus formation and irregularity, hypertrophy of the clivus raising the question of sequela of prior trauma, congenital etiology and/or inflammatory arthropathy. If not previously performed, follow-up evaluation with MRI may be considered. TECHNICAL DOCUMENTATION: Quality ID # [id number]: Final reports with documentation of one or more dose reduction techniques (e.g., Automated exposure control, adjustment of the mA and/or kV according to patient size, use of iterative reconstruction technique) copyright 2010 [employer]- All Rights Reserved Femur X-Ray 08/17/18 20:05 IMPRESSION: Mildly displaced intratrochanteric left femoral neck fracture. Head CT 08/17/18 20:05 IMPRESSION: 1. No acute intracranial abnormalities. Nonspecific white matter change most likely small vessel ischemic disease, age indeterminate. 2. CT is insensitive for early evaluation of acute stroke. If there is clinical concern for acute ischemia, an MRI may be considered. 3. Incidentally noted severe narrowing at the level of the craniocervical junction secondary to dense callus formation and irregularity, hypertrophy of the clivus raising the question of sequela of prior trauma, congenital etiology and/or inflammatory arthropathy. TECHNICAL DOCUMENTATION: Quality ID # [id number]: Final reports with documentation of one or more dose reduction techniques (e.g., Automated exposure control, adjustment of the mA and/or kV according to patient size, use of iterative reconstruction technique) copyright 2010 [employer]- All Rights Reserved Hip X-Ray 08/17/18 20:05 IMPRESSION: Mildly displaced intratrochanteric left femoral neck fracture. Knee X-Ray 08/17/18 20:05 IMPRESSION: Mildly displaced intratrochanteric left femoral neck fracture. Chest X-Ray 08/17/18 20:34 IMPRESSION: No acute cardiopulmonary abnormality. Status: Image reviewed by me Assessment & Plan - Diagnosis (1) Intertrochanteric fracture of left hip Qualifiers: Encounter type: initial encounter Fracture type: closed Fracture alignment: displaced Qualified Code(s): S72.142A - Displaced intertrochanteric fracture of left femur, initial encounter for closed fracture Is this a current diagnosis for this admission?: Yes Plan: 77-year-old female with displaced left intratrochanteric hip fractures. She admitted to medicine and will require cardiac clearance due to her c omorbidities bed rest and continue n.p.o. status. Discussed the risk and benefits of surgery and the patient has agreed to consent to proceed with surgery hopefully later this afternoon.
[2018-08-18] MEDS ORDERED: CEFAZOLIN INJ 1 GM VIAL ONE (18:28)
[2018-08-18] MEDS ORDERED: BUPIVACAINE HCL/DEX-WATER/PF 15 MG/2 ML AMPULE ONE (18:51)
[2018-08-18] MEDS ORDERED: MORPHINE SULFATE 10 MG/ML INJ IV PRN ×3 (19:27→21:29)
[2018-08-18] MEDS ORDERED: MEPERIDINE HCL/PF INJ 25 MG/1 ML DISP.SYRIN IV PRN ×2 (19:27→21:29)
[2018-08-18] MEDS ORDERED: OXYCODONE-ACETAMINOPHEN 5-325 MG TABLET PO PRN ×2 (19:27)
[2018-08-18] MEDS ORDERED: DIPHENHYDRAMINE HCL 50 MG/ML VIAL IV PRN ×2 (19:27→21:29)
[2018-08-18] MEDS ORDERED: PROMETHAZINE HCL INJ 25 MG/1 ML VIAL IV PRN ×4 (19:27→21:29)
[2018-08-18] MEDS ORDERED: FENTANYL CITRATE INJ/PF 100 MCG/2 ML AMPUL IV PRN ×6 (19:27→21:29)
[2018-08-18] MEDS: FENTANYL CITRATE INJ/PF 100 MCG/2 ML AMPUL ONE ×2 (20:10→20:15)
--- NOTE | 2018-08-18 20:10 | Operative Report ---
Operative Report DATE OF SURGERY: 08/18/18 PREOPERATIVE DIAGNOSIS: Left intertrochanteric hip fracture POSTOPERATIVE DIAGNOSIS: Same OPERATION: nailing of left intertrochanteric hip fracture SURGEON: MARIAH SHORT ANESTHESIA: GA TISSUE REMOVED OR ALTERED: None COMPLICATIONS: None ESTIMATED BLOOD LOSS: 50 mL INTRAOPERATIVE FINDINGS: As above PROCEDURE: Patient was seen and evaluated in the preoperative holding area. The left lower extremity was initialized and marked. Patient received 2 g Ancef IV for bacterial prophylaxis. Patient was taken back to the operative room where transferred operative table. Patient was placed under spinal anesthesia. Once adequate anesthetized he was carefully placed onto the hip positioner the nonoperative lower extremity and bilateral upper extremities were carefully padded and the peroneal nerve was padded and on the nonoperative extremity. The operative extremity was placed in a traction along with adduction and internal rotation. A surgical team debriefing was performed ensuring all instrumentation was available, the surgical procedure was discussed with possible concerns reviewed. A timeout was done identifying correct patient, procedure and extremity everyone in attendance agree with this and verbalized no concerns. Reduction maneuver with the use of the hip traction table were done and C-arm fluoroscopy was used to confirm optimal reduction of the intertrochanteric fracture. Once this was confirmed the lower extremity was prepped with chlor prep and draped in a sterile fashion. At this point a small skin incision was made proximal to the greater trochanter. The guidewire was placed onto the tip of the trochanter advanced down to the level of the lesser trochanter. AP and lateral fluoroscopy was used to confirm appropriate placement of the guidewire. The skin incision was then extended and the underlying fascia opened up carefully to the tip of the greater trochanter. The entry reamer was then used and advanced to the level of the lesser trochanter. At this point D[place] short gamma nail was opened up and placed onto the aiming arm and advanced down the shaft of the femur. AP and lateral fluoroscopy was then used to confirm appropriate placement of the nail. Then turned my attention to the compression screw fixation in the femoral head. The trochars were advanced to the skin, a skin incision was made, careful dissection down to the fascia to the lateral femoral cortex was then partaken. The guidewire was then used and placed in the center center position with the tip apex distance less than 25 mm. Once this position was obtained the size of the compression screw was measured. AP and lateral fluoroscopy used to confirm appropriate placement of our guide wire. The step reamer was used to drill up through the femoral neck and head. I then carefully advanced the compression screw into position. AP and lateral fluoroscopy was done to confirm appropriate placement of the compression screw this was then locked into position proximally. The compression screw was then disengaged from its mounting device and the guidewire was removed. Lastly proceeded with locking of the nail distally. Using the aiming arm the trochars were advanced to the skin, a skin incision was made. Careful dissection done with a hemostat to the lateral cortex of the femur. I then drilled the near and far cortices. Measured the appropriate sized distal locking screw and secured it into position. At this point AP/lateral and oblique views of the proximal and distal aspect of the nail were taken confirming appropriate placement of the compression screw, distal locking screw and intramedullary n ail. Once this was confirmed I proceeded with copious irrigation of the proximal and distal wounds. The deep tissues were closed with 0 Vicryl suture, subcutaneous tissues were closed 2-0 Vicryl and teo for skin. A dressing was placed. Sponge counts, instrument counts and needle counts were correct. Patient was then transferred from the operating room table to the operating room stretcher. The was no intraoperative complications patient tolerated procedure well was stable to PACU. Implants used: Vignesh 11 x 180 mm 130 Short Gamma Nail with a 90 mm compression screw Postoperative plan: Patient will begin physical therapy on postop day #1 with Xarelto daily.
[2018-08-18] MEDS ORDERED: RINGERS SOLUTION,LACTATED 1,000 ML IV PRN (21:09)
--- NOTE | 2018-08-18 21:29 | PDOC CONSULTATION ---
Consultation-Blank Consultation: CARDIOLOGY CONSULTATION by Dr. Martha Zheng on 08/18/2018. Patient seen at 1600 [4 PM] on 08/18/2018. 60 minutes spent on this patient, with more than 50% of time spent in direct patient care. REASON FOR CONSULTATION: Patient with a history of coronary artery disease, old MA and coronary artery bypass graft surgery, history of AICD placement, and history of cardiomyopathy, for preoperative cardiac risk assessment for left hip surgery. HISTORY OF PRESENT ILLNESS: Patient is a 77-year-old female with known history of coronary artery disease, history of old MA, history of coronary artery bypass graft surgery, history of ischemic cardia myopathy, the LV ejection fraction which is severely reduced, and history of AICD, and type 2 diabetes mellitus [id number], admitted with the left hip pain after she had an accidental fall. There is no loss of consciousness. The patient denies any chest pain or discomfort. There is no anginal symptoms. There is no symptoms of congestive heart failure. There is no PND orthopnea or leg edema. There is no firing of the AICD. There is no palpitations there is no symptoms of TIA or CVA. PAST MEDICAL HISTORY: History of coronary artery disease, history of old myocardial infarction, history of coronary artery bypass graft surgery 5 years ago. She also has a tremor and AICD placed. She also has a history of diabetes mellitus [id number]. She denies any history of renal disease, but the patient's GFR is 50 mL which is consistent with a stage IIIa CKD. There is no history of thyroid disease. No history of TIA CVA. She denies history of hypertension. There is no history of asthma or COPD. As per records the patie nt had a cardiac catheterization in late 2016, and this showed that the saphenous vein graft to the totally occluded right coronary artery was patent, the circumflex was a nondominant artery, and the LAD was proximally totally occluded, with the left internal mammary artery being widely patent to the LAD, but the distal LAD had some 60-70% stenosis. The patient's ejection fraction at that time was 20%. She was also admitted in [place] in the hospital for congestive heart failure in December 2017. Since then the patient has no symptoms of heart failure, but the patient is very sedentary. She also since a long time has not had any anginal symptoms. The patient cannot recollect any firing of her AICD at any time. PAST SURGICAL HISTORY: History of coronary artery bypass graft surgery about 5 years ago after she sustained a myocardial infarction. At that time she also had an AICD placed. FAMILY HISTORY: Is positive for coronary artery disease in her father. SOCIAL HISTORY: The patient has never smoked. There is no history of EtOH abuse. DISPOSITION: The patient is a full code. Her son is a surrogate healthcare decision maker. Note the patient lives in [place] and is visiting here, and states that she will go back to [place] after she is discharged from the hospital. REVIEW SYSTEMS: CONSTITUTIONAL: There is no fever chills or rigors. HEAD: There is no history of head injury or headaches or migraines. EYES: There is no amblyopia diplopia. There is no amaurosis fugax. EARS: There is no hearing loss. There is no vertigo. There is no tinnitus. NOSE: There is no history of hayfever. No history of nosebleeds. MOUTH: There is no altered taste sensation. There is no ulcers in the mouth. There is no bleeding from the gums. THROAT: There is no redness of the oropharynx. There is no exudates in the throat. SKIN: There is no pruritus. There is history of yellowish discoloration of the skin, or history of pruritus. There is no history of psoriasis. There is no history of skin cancer. NECK: There is no history of symptoms of C-spine arthritis. There is no neck pain. There is no swelling in the neck. LUNGS: There is no history of asthma or COPD. There is no history of sleep apnea. There is no cough or sputum production. There is no history of pulmonary embolism. There is no history of pleuritic chest pain. There is no history of hemoptysis. No symptoms suggestive of upper or lower respiratory tract infections. HEART: History of coronary artery disease, history of MA, history of coronary bypass graft surgery. No history of angina since long time, but the patient is very sedentary. History of cardia myopathy with a severely reduced ejection fraction, she had acute on chronic congestive heart failure necessitating admission to hospital in [place] in December 2017. No symptoms of PND orthopnea leg edema since then. There is no palpitations. No firing of her AICD which was placed at the time of her coronary artery bypass graft surgery. The patient denies any syncope. There is no history of rheumatic fever. GI: No history of abdominal pain. No history of fatty food intolerance. No history of hepatitis. No history of jaundice. No history of GI bleed. No history of peptic ulcer disease. No history of GERD. No history of altered bowel movements. ENDOCRINE: History of diabetes mellitus type 2 [id number]. No history of polydipsia polyuria. No sick symptoms of diabetic neuropathy, or retinopathy. No history of thyroid disease. No history of heat or cold intolerance. No history of hirsutism. No history of excessive sweating. METABOLIC: Denies history of hyperlipidemia. No history of obesity. No history of gout. RENAL: The patient denies prior history of chronic kidney disease, but her GFR is reduced at 50 mL which makes is a chronic kidney disease stage IIIa. No symptoms of UTI. No history of hematuria pyuria or dysuria. MUSCULAR skeletal:: No history of arthritis or collagen vascular disease. PHARMACEUTICAL LABORATORY TECHNICIAN: No history of TIA or CVA. No history of headaches migraines or seizures. PSYCHIATRIC: No history of anxiety or depression. No history of suicidal ideation. No history of homicidal ideation. VASCULAR: No history of DVT. No history of calf or buttock claudication. HEMATOLOGICAL: No history of anemia. No history of bleeding diathesis. No blood dyscrasias. No history of cardiac clotting disorders. No history of lymphoma. PHYSICAL EXAMINATION: The patient is well-built and well-nourished. She is in no acute distress. Her pain is well controlled with the current medication. She is well-groomed. Selected Entries 08/18/18 15:44 Temperature 98.3 F Temperature Oral Source Respiratory 14 Rate Blood Pressure 140/64 H BP Location Right Arm BP Position Supine O2 Sat by Pulse 92 Oximetry Oxygen Delivery Room Air Method HEAD: Is atraumatic normocephalic. EYES: Pupils are equal round regular reactive to light accommodation. Extraocular movements are normal. There is no conjunctival pallor. There is no scleral icterus. EARS: Tympanic membranes are intact. External auditory canals are clear. NOSE: There is no deviated nasal septum. There is no inflammation of the nasal mucous membrane. MOUTH: Mucous membranes of mouth, and tongue are moist. There is no ulcers in the mouth. There is no bleeding from the gums. THROAT: There is no redness of the oropharynx. There is no exudates in the throat. SKIN: There is no ecchymosis or petechiae. There is no skin lesions or skin rashes. NECK: Is supple. There is no JVD. Carotids are equal there is no bruit. There is no lymphadenopathy. There is no goiter. There is no accessory muscle respiration in use. Trachea central. LUNGS: Clear to auscultation percussion, without any rhonchi rales or wheezing. HEART: S1-S2 is heard. There is no S3 gallop there is no S4 gallop there is systolic murmur left sternal border and the apex there is no rub. ABDOMEN: Is soft. There is no hepatosplenomegaly. Bowel sounds are well heard. There is no tender areas of masses. There is no rebound guarding or rigidity. Extremities: Femorals Are Well Hopkins. There Is No Femoral Bruits. Leg Pulses Are Well Hopkins. There Is No Pedal Edema. There Is No DVT or Cellulitis. There Is Some Tenderness in the Left Hip Area. There Is No Neurovascular Compromise of the Left Lower Extremity. There Is No Sinus or Clubbing. Capillary Refill Is Normal. PHARMACEUTICAL LABORATORY TECHNICIAN: The Patient Is Conscious Awake Alert Oriented x3. There Is No Focal Deficits. PSYCHIATRIC: The Patient Judgment and Insight Are Intact Her Affect Is Normal. 08/17/18 08/17/18 08/17/18 21:35 21:35 23:00 WBC RBC Hgb Hct MCV MCH MCHC RDW Plt Count Seg Neutrophils % Lymphocytes % Monocytes % Eosinophils % Basophils % Absolute Neutrophils Absolute Lymphocytes Absolute Monocytes Absolute Eosinophils Absolute Basophils PT 12.9 INR 0.93 APTT 24.8 Sodium Potassium Chloride Carbon Dioxide Anion Gap BUN Creatinine Est GFR (Non-Af Amer) Glucose POC Glucose 157 H Calcium Creatine Kinase CK-MB (CK-2) 0.71 Troponin I 0.028 08/18/18 08/18/18 08/18/18 03:27 03:27 03:27 WBC 7.6 RBC 3.66 L Hgb 11.0 L Hct 31.9 L MCV 87 MCH 30.0 MCHC 34.4 RDW 13.5 Plt Count 185 Seg Neutrophils % 72.1 Lymphocytes % 18.3 Monocytes % 8.0 Eosinophils % 0.8 Basophils % 0.8 Absolute Neutrophils 5.5 Absolute Lymphocytes 1.4 Absolute Monocytes 0.6 Absolute Eosinophils 0.1 Absolute Basophils 0.1 PT INR APTT Sodium 139.9 Potassium 4.2 Chloride 108 H Carbon Dioxide 26 Anion Gap 6 BUN 32 H Creatinine 1.06 Est GFR (Non-Af Amer) 50 L Glucose 159 H POC Glucose Calcium 9.0 Creatine Kinase 29 L CK-MB (CK-2) 0.74 Troponin I 0.024 08/18/18 08/18/18 08/18/18 05:50 09:35 09:35 WBC RBC Hgb Hct MCV MCH MCHC RDW Plt Count Seg Neutrophils % Lymphocytes % Monocytes % Eosinophils % Basophils % Absolute Neutrophils Absolute Lymphocytes Absolute Monocytes Absolute Eosinophils Absolute Basophils PT INR APTT Sodium Potassium Chloride Carbon Dioxide Anion Gap BUN Creatinine Est GFR (Non-Af Amer) Glucose POC Glucose 139 H Calcium Creatine Kinase 32 CK-MB (CK-2) 0.85 Troponin I 0.028 IMPRESSION: 1. Coronary artery disease, history of MA, and history of coronary bypass graft surgery, without angina. 2. Ischemic cardiomyopathy with severely reduced LV ejection fraction. Patient is well compensated at present. 3. History of AICD placement: No recent firing of AICD. 4. Diabetes mellitus type 2 [id number]. 5. Accidental fall and fracture of left hip patient for surgery. 6. Preprocedural cardiovascular examination for cardiac risk assessment for surgery. 1. Most likely chronic kidney disease stage III A. RECOMMENDATION: 1. The patient , as mentioned earlier in my brief note, will be moderate to high cardiac risk for this procedure. Recommend spinal anesthesia. Postopera tively we will place the patient in 3 W. or 3 S. and monitor the patient's rhythm on telemetry, and get serial EKGs and enzymes. We will also watch for development of any arrhythmias or congestive heart failure, or anginal symptoms. 2. The patient is not on any anti-CAD or anti-ischemic cardiomyopathy medications. Would recommend postoperatively start the patient on aspirin 81 mg p.o. daily, BELEN inhibitor or ARB, and a beta-rosario, such as Toprol-XL. Will follow with you. Discussed with the anesthesiologist. Discussed with the hospitalist taking care of the patient.
[2018-08-18] MEDS: OXYCODONE HCL IR 5 MG TABLET PO PRN (22:08)
[2018-08-18] MEDS: ONDANSETRON HCL INJ/PF 4 MG/2 ML SDV IV PRN (22:12)
[2018-08-18] MEDS: CEFAZOLIN SODIUM 2 GM in DEXTROSE 5%-WATER 100 ML IV SCH (22:30)
--- NOTE | 2018-08-18 22:31 | RADIOLOGY REPORT (SQ) ---
3 VIEWS OF THE RIGHT SHOULDER HISTORY: Shoulder pain. COMPARISON: None. FINDINGS: No acute fracture is seen. There are mild degenerative changes of the AC joint. Glenohumeral joint is preserved. No focal soft tissue swelling is identified. IMPRESSION: No acute fracture or malalignment.
--- NOTE | 2018-08-18 22:33 | RADIOLOGY REPORT (SQ) ---
EXAM DESCRIPTION: XR ELBOW 1-2 VIEWS COMPLETED DATE/TME: 08/18/2018 00:00 CLINICAL HISTORY: 77 years, Female, pain COMPARISON: None. NUMBER OF VIEWS: TECHNIQUE: LIMITATIONS: None. FINDINGS: There are degenerative changes involving the elbow joint. There may be mild elevation of the anterior elbow fat pad, raising the possibility of a small joint effusion. No fracture or dislocation. IMPRESSION: Degenerative changes involving the elbow joint, with a possible small joint effusion. copyright 2010 [employer]- All Rights Reserved
[2018-08-18] MEDS ORDERED: VALSARTAN 40 MG TABLET PO ONE (22:45)
[2018-08-18] MEDS ORDERED: METOPROLOL SUCCINATE 25 MG TAB.SR.24H PO ONE (22:45)
[2018-08-19] MEDS: OXYCODONE HCL IR 5 MG TABLET PO PRN ×4 (02:43→22:30)
[2018-08-19] MEDS: CEFAZOLIN SODIUM 2 GM in DEXTROSE 5%-WATER 100 ML IV SCH ×2 (05:07→18:25)
[2018-08-19] MEDS: HEPARIN SOD (PORCINE) 5,000 UNIT/ML 1 ML SYRINGE SUBCUT SCH (05:07)
--- NOTE | 2018-08-19 08:23 | EKG REPORT ---
SEVERITY:- ABNORMAL ECG - ATRIAL-SENSED VENTRICULAR-PACED RHYTHM : Confirmed by: Martha Zheng MD 19-Aug-2018 08:22:46
--- NOTE | 2018-08-19 08:39 | RADIOLOGY REPORT (SQ) ---
EXAM DESCRIPTION: NO CHG FLUORO; HIP IN OPERATING RM COMPLETED DATE/TIME: 08/18/2018 9:08 pm REASON FOR STUDY: IM NAILING LEFT HIP COMPARISON: None. FLUOROSCOPY TIME: 1.0 minutes 4 Images saved to PACS LIMITATIONS: None. PROCEDURE: Intraoperative images obtained to evaluate progresses. Please see operative report for d etailed description. 1.0 minutes of fluoro time utilized. FINDINGS: Limited intraoperative fluoroscopic images obtained to evaluate a OR progress. IMPRESSION: Limited intraoperative images of the left femur fixation obtained to evaluate or progres s. Please see operative report for detailed description of procedure. COMMENT: PQRS 6045F: Fluoroscopy time of the procedure is documented in the report. TECHNICAL DOCUMENTATION: JOB ID: [id number] [employer]- All Rights Reserved Reading location - IP/workstation name: [email or web address]
--- NOTE | 2018-08-19 08:39 | RADIOLOGY REPORT (SQ) ---
EXAM DESCRIPTION: NO CHG FLUORO; HIP IN OPERATING RM COMPLETED DATE/TIME: 08/18/2018 9:08 pm REASON FOR STUDY: IM NAILING LEFT HIP COMPARISON: None. FLUOROSCOPY TIME: 1.0 minutes 4 Images saved to PACS LIMITATIONS: None. PROCEDURE: Intraoperative images obtained to evaluate progresses. Please see operative report for d etailed description. 1.0 minutes of fluoro time utilized. FINDINGS: Limited intraoperative fluoroscopic images obtained to evaluate a OR progress. IMPRESSION: Limited intraoperative images of the left femur fixation obtained to evaluate or progres s. Please see operative report for detailed description of procedure. COMMENT: PQRS 6045F: Fluoroscopy time of the procedure is documented in the report. TECHNICAL DOCUMENTATION: JOB ID: [id number] [employer]- All Rights Reserved Reading location - IP/workstation name: [email or web address]
[2018-08-19] MEDS ORDERED: VALSARTAN 40 MG TABLET PO SCH ×2 (10:00→22:00)
[2018-08-19] MEDS: DOCUSATE SODIUM 100 MG CAPSULE PO SCH ×2 (10:49→18:33)
[2018-08-19] MEDS: ASPIRIN 81 MG TABLET, CHEWABLE PO SCH (10:49)
[2018-08-19] MEDS: METOPROLOL SUCCINATE 25 MG TAB.SR.24H PO SCH ×2 (10:49→21:20)
--- NOTE | 2018-08-19 14:59 | PDOC PROGRESS REPORT ---
Subjective Progress Note for:: 08/19/18 Subjective:: This is a 77 year old female with a past medical history of congestive heart failure, coronary artery disease, piror CABG, prior AICD placement, rheumatic heart disease, diabetes and history of recurrent falls who fell at home and sustained a minimally displaced left trochanteric femoral fracture. Patient says she fell "like she used to", that she was trying to ambulate and had recurrence of her "head spinning" like she often has and fell on the floor. Patient underwent nailing of left intertrochanteric hip fracture on 08/18/18 which was uneventful. No acute event overnight. Upon encounter, she says she only has mild pain on the surgical site. She denies chest pain, SOB or palpitations. No fever or chills. Reason For Visit: LEFT HIP FRACTURE, DIABETES Physical Exam Vital Signs: Temp Pulse Resp BP Pulse Ox 98.8 F 74 16 108/44 L 96 08/19/18 07:59 08/19/18 08:00 08/19/18 08:00 08/19/18 07:59 08/19/18 08:00 Intake & Output 08/18/18 08/19/18 08/20/18 06:59 06:59 06:59 Intake Total 2018 Output Total 925 Balance 1093 Weight 128 lb 4.944 oz 121 lb 11.123 oz General appearance: PRESENT: no acute distress, well-developed, well-nourished Head exam: PRESENT: atraumatic, normocephalic Eye exam: PRESENT: conjunctiva pink, EOMI, PERRLA. ABSENT: scleral icterus Ear exam: PRESENT: normal external ear exam Mouth exam: PRESENT: moist, tongue midline Neck exam: ABSENT: carotid bruit, JVD, lymphadenopathy, thyromegaly Respiratory exam: PRESENT: clear to auscultation joann. ABSENT: rales, rhonchi, wheezes Cardiovascular exam: PRESENT: systolic murmur. ABSENT: bradycardia, irregular rhythm GI/Abdominal exam: PRESENT: normal bowel sounds, soft. ABSENT: distended, guarding, mass, organolmegaly, rebound, tenderness Rectal exam: PRESENT: deferred Neurological exam: PRESENT: alert, awake, oriented to person, oriented to place, oriented to time, oriented to situation, CN II-XII grossly intact. ABSENT: motor sensory deficit Results Laboratory Results: 08/18/18 03:27 08/18/18 03:27 08/17/18 08/17/18 08/18/18 21:35 21:35 03:27 Creatine Kinase 28 L 29 L CK-MB (CK-2) 0.71 Troponin I 0.028 08/18/18 08/18/18 08/18/18 03:27 09:35 09:35 Creatine Kinase 32 CK-MB (CK-2) 0.74 0.85 Troponin I 0.024 0.028 08/19/18 05:32 Creatine Kinase CK-MB (CK-2) Troponin I 0.027 Impressions: Cervical Spine CT 08/17/18 20:05 IMPRESSION: 1. Straightening of the cervical spine which may be secondary to positioning for the examination versus spasm. 2. Multilevel degenerative change without fracture or acute subluxation. 3. Incidentally noted severe narrowing at the level of the craniocervical junction secondary to dense pannus formation and irregularity, hypertrophy of the clivus raising the question of sequela of prior trauma, congenital etiology and/or inflammatory arthropathy. If not previously performed, follow-up evaluation with MRI may be considered. TECHNICAL DOCUMENTATION: Quality ID # [id number]: Final reports with documentation of one or more dose reduction techniques (e.g., Automated exposure control, adjustment of the mA and/or kV according to patient size, use of iterative reconstruction technique) copyright 2010 [employer]- All Rights Reserved Femur X-Ray 08/17/18 20:05 IMPRESSION: Mildly displaced intratrochanteric left femoral neck fracture. Head CT 08/17/18 20:05 IMPRESSION: 1. No acute intracranial abnormalities. Nonspecific white matter change most likely small vessel ischemic disease, age indeterminate. 2. CT is insensitive for early evaluation of acute stroke. If there is clinical concern for acute ischemia, an MRI may be considered. 3. Incidentally noted severe narrowing at the level of the craniocervical junction secondary to dense callus formation and irregularity, hypertrophy of the clivus raising the question of sequela of prior trauma, congenital etiology and/or inflammatory arthropathy. TECHNICAL DOCUMENTATION: Quality ID # [id number]: Final reports with documentation of one or more dose reduction techniques (e.g., Automated exposure control, adjustment of the mA and/or kV according to patient size, use of iterative reconstruction technique) copyright 2010 [employer]- All Rights Reserved Knee X-Ray 08/17/18 20:05 IMPRESSION: Mildly displaced intratrochanteric left femoral neck fracture. Chest X-Ray 08/17/18 20:34 IMPRESSION: No acute cardiopulmonary abnormality. Elbow X-Ray 08/18/18 00:00 IMPRESSION: Degenerative changes involving the elbow joint, with a possible small joint effusion. copyright 2010 [employer]- All Rights Reserved Fluoroscopy 08/18/18 00:00 IMPRESSION: Limited intraoperative images of the left femur fixation obtained to evaluate or progress. Please see operative report for detailed description of procedure. Hip X-Ray 08/18/18 00:00 IMPRESSION: Limited intraoperative images of the left femur fixation obtained to evaluate or progress. Please see operative report for detailed description of procedure. Shoulder X-Ray 08/18/18 00:00 IMPRESSION: No acute fracture or malalignment. Assessment & Plan - Diagnosis (1) Hip fracture Qualifiers: Encounter type: initial encounter Fracture type: closed Laterality: left Qualified Code(s): S72.002A - Fracture of unspecified part of neck of left femur, initial encounter for closed fracture Is this a current diagnosis for this admission?: Yes Plan: s/P Nailing of left intertrochanteric hip fracture on 08/18/18. Switch DVT prophylaxis to Xarelto per ortho recommendation. (2) Congestive heart failure Is this a current diagnosis for this admission?: Yes Plan: Recent echo shows EF of <25%. Cardiology following. Started on lopressor and valsartan. (3) Coronary artery disease Is this a current diagnosis for this admission?: Yes Plan: Started on aspirin. (4) Diabetes mellitus Qualifiers: Diabetes mellitus type: type 2 Is this a current diagnosis for this admission?: Yes Plan: She takes metformin at home. Continue sliding scale for now. (5) UTI (urinary tract infection) Is this a current diagnosis for this admission?: Yes Plan: Continue Rocephin. - Time Time Spent with patient: 15-24 minutes
--- NOTE | 2018-08-19 17:25 | PDOC PROGRESS REPORT ---
Subjective Progress Note for:: 08/19/18 Subjective:: Patient resting in bed. Participated with therapy today. No issues overnight Reason For Visit: LEFT HIP FRACTURE, DIABETES Physical Exam Vital Signs: Temp Pulse Resp BP Pulse Ox 37.5 C 87 12 123/55 L 95 08/19/18 16:17 08/19/18 16:17 08/19/18 16:17 08/19/18 16:17 08/19/18 16:17 Intake & Output 08/18/18 08/19/18 08/20/18 06:59 06:59 06:59 Intake Total 2018 Output Total 925 Balance 1093 Weight 58.2 kg 55.2 kg Adult Front & Back Image: 1 - Incisions are dry clean and intact. Soft calf with negative Homans sign and neurovascular status is intact. Pain with range of motion as expected postoperatively. Results Laboratory Results: 08/18/18 03:27 08/18/18 03:27 08/17/18 08/17/18 08/18/18 21:35 21:35 03:27 Creatine Kinase 28 L 29 L CK-MB (CK-2) 0.71 Troponin I 0.028 08/18/18 08/18/18 08/18/18 03:27 09:35 09:35 Creatine Kinase 32 CK-MB (CK-2) 0.74 0.85 Troponin I 0.024 0.028 08/19/18 05:32 Creatine Kinase CK-MB (CK-2) Troponin I 0.027 Impressions: Cervical Spine CT 08/17/18 20:05 IMPRESSION: 1. Straightening of the cervical spine which may be secondary to positioning for the examination versus spasm. 2. Multilevel degenerative change without fracture or acute subluxation. 3. Incidentally noted severe narrowing at the level of the craniocervical junction secondary to dense pannus formation and irregularity, hypertrophy of the clivus raising the question of sequela of prior trauma, congenital etiology and/or inflammatory arthropathy. If not previously performed, follow-up evaluation with MRI may be considered. TECHNICAL DOCUMENTATION: Quality ID # [id number]: Final reports with documentation of one or more dose reduction techniques (e.g., Automated exposure control, adjustment of the mA and/or kV according to patient size, use of iterative reconstruction technique) copyright 2010 [employer]- All Rights Reserved Femur X-Ray 08/17/18 20:05 IMPRESSION: Mildly displaced intratrochanteric left femoral neck fracture. Head CT 08/17/18 20:05 IMPRESSION: 1. No acute intracranial abnormalities. Nonspecific white matter change most likely small vessel ischemic disease, age indeterminate. 2. CT is insensitive for early evaluation of acute stroke. If there is clinical concern for acute ischemia, an MRI may be considered. 3. Incidentally noted severe narrowing at the level of the craniocervical junction secondary to dense callus formation and irregularity, hypertrophy of the clivus raising the question of sequela of prior trauma, congenital etiology and/or inflammatory arthropathy. TECHNICAL DOCUMENTATION: Quality ID # [id number]: Final reports with documentation of one or more dose reduction techniques (e.g., Automated exposure control, adjustment of the mA and/or kV according to patient size, use of iterative reconstruction technique) copyright 2010 [employer]- All Rights Reserved Knee X-Ray 08/17/18 20:05 IMPRESSION: Mildly displaced intratrochanteric left femoral neck fracture. Chest X-Ray 08/17/18 20:34 IMPRESSION: No acute cardiopulmonary abnormality. Elbow X-Ray 08/18/18 00:00 IMPRESSION: Degenerative changes involving the elbow joint, with a possible small joint effusion. copyright 2010 [employer]- All Rights Reserved Fluoroscopy 08/18/18 00:00 IMPRESSION: Limited intraoperative images of the left femur fixation obtained to evaluate or progress. Please see operative report for detailed description of procedure. Hip X-Ray 08/18/18 00:00 IMPRESSION: Limited intraoperative images of the left femur fixation obtained to evaluate or progress. Please see operative report for detailed description of procedure. Shoulder X-Ray 08/18/18 00:00 IMPRESSION: No acute fracture or malalignment. Status: Image reviewed by me Assessment & Plan - Diagnosis (1) Intertrochanteric fracture of left hip Qualifiers: Encounter type: initial encounter Fracture type: closed Fracture alignment: displaced Qualified Code(s): S72.142A - Displaced intertrochanteric fracture of left femur, initial encounter for closed fracture Is this a current diagnosis for this admission?: Yes - Plan Summary Plan Summary: Patient is 77 POD #1 from left hip cephalo-medullary nailing. Continue physical therapy Continue pain control Continue DVT prophylaxis Awaiting [facility] facility placement
[2018-08-19] MEDS: CEFTRIAXONE 1 GM/D5W RTU 1 GM/50 ML RTUPB IV SCH (18:26)
[2018-08-19] MEDS: RIVAROXABAN 10 MG TABLET PO SCH (18:26)
--- NOTE | 2018-08-19 20:52 | Progress Note ---
Provider Note Provider Note: CARDIOLOGY PROGRESS NOTE by Dr. Martha Zheng on 08/19/2018. SUBJECTIVE: The patient underwent uneventful surgery of her left hip fracture. She denies any chest pain or discomfort. There is no PND orthopnea. There is no shortness of breath. There is no cough or sputum production. There is no PND orthopnea or leg edema. There is no firing of the AICD. There is no ventricular arrhythmia seen on the monitor. The patient has been able to tolerate the metoprolol and valsartan that was started. There is no TIA CVA symptoms. PHYSICAL EXAM: The patient is well-built and well-nourished in no acute distress.. She is well-groomed Selected Entries 08/19/18 08/19/18 07:59 16:17 Temperature 99.5 F Temperature Oral Source Pulse Rate 87 Respiratory 12 Rate Blood Pressure 123/55 L Blood Pressure 77 Mean Blood Pressure 65 Mean [1] Blood Pressure Supine Position [1] BP Location Left Arm BP Position Supine O2 Sat by Pulse 95 Oximetry Oxygen Delivery Room Air Method HEAD: Is atraumatic normocephalic. EYES: Pupils are equal round regular reactive to light accommodation. Extraocular movements are normal. There is no conjunctival pallor. There is no scleral icterus. EARS: Tympanic membranes are intact. External auditory canals are clear. NOSE: There is no deviated nasal septum. There is no inflammation of the nasal mucous membrane. MOUTH: Mucous membranes of mouth, and tongue are moist. There is no ulcers in the mouth. There is no bleeding from the gums. THROAT: There is no redness of the oropharynx. There is no exudates in the throat. SKIN: There is no ecchymosis or petechiae. There is no skin lesions or skin rashes. NECK: Is supple. There is no JVD. Carotids are equal there is no bruit. There is no lymphadenopathy. There is no goiter. There is no accessory muscle respiration in use. Trachea central. LUNGS: Clear to auscultation percussion, without any rhonchi rales or wheezing. HEART: S1-S2 is heard. There is no S3 gallop there is no S4 gallop there is systolic murmur left sternal border and the apex there is no rub. ABDOMEN: Is soft. There is no hepatosplenomegaly. Bowel sounds are well heard. There is no tender areas of masses. There is no rebound guarding or rigidity. Extremities: Femorals Are Well [place]. There Is No Femoral Bruits. Leg Pulses Are Well [place]. There Is No Pedal Edema. There Is No DVT or Cellulitis. There Is Some Tenderness in the Left Hip Area. There Is No Neurovascular Compromise the Left Lower Extremity. There Is No Sinus or Clubbing. Capillary Refill Is Normal. NUMERICAL CONTROL OPERATOR: The Patient Is Conscious Awake Alert Oriented x3. There Is No Focal Deficits. PSYCHIATRIC: The Patient Judgment and Insight Are Intact Her Affect Is Normal. 08/17/18 08/17/18 08/18/18 21:35 21:35 03:27 POC Glucose Creatine Kinase 28 L 29 L CK-MB (CK-2) 0.71 Troponin I 0.028 08/18/18 08/18/18 08/19/18 03:27 15:48 00:53 POC Glucose 182 H 220 H Creatine Kinase CK-MB (CK-2) 0.74 Troponin I 0.024 08/19/18 08/19/18 08/19/18 05:32 06:27 12:07 POC Glucose 163 H 192 H Creatine Kinase CK-MB (CK-2) Troponin I 0.027 08/19/18 16:38 POC Glucose 257 H Creatine Kinase CK-MB (CK-2) Troponin I The patient's EKG shows atrial sensed and ventricular paced rhythm. Note that the precordial leads have a right bundle branch block pattern, and hence the patient has a biventricular AICD. This is normal biventricular AICD pacing rhythm. IMPRESSION: 1. Coronary artery disease, history of OR, and history of coronary bypass graft surgery, without angina. 2. Ischemic cardiomyopathy with severely reduced LV ejection fraction. Patient is well compensated at present. 3. History of AICD placement: No recent firing of AICD. 4. Diabetes mellitus type 2 [id number]. 5. Accidental fall and fracture of left hip, status post surgical repair of the same.. RECOMMENDATION: 1. Continue the patient on Toprol-XL 25 mg p.o. every 12 hours. We will increase this as tolerated. Also will increase the patient's valsartan to 80 mg p.o. every 12 hours. Continue aspirin. 2. We will recheck the patient's CBC and SMA-7 and troponin in the morning. Cardiac status is stable. Medications reviewed medications adjusted. Management plan discussed with the attending physician on the case and other caregiving providers on the case. Medical decision making is of high complexity in view of the need for medication changes. On the patient's underlying heart diseases. 40 minutes spent on this patient, with more than 50% of time spent in direct patient care.
[2018-08-19] MEDS: VALSARTAN 80 MG TABLET PO SCH (21:19)
[2018-08-19] MEDS: INSULIN LISPRO 100 UNIT/ML 3 ML VIAL SUBCUT PRN (21:20)
[2018-08-20] MEDS: OXYCODONE HCL IR 5 MG TABLET PO PRN ×3 (04:11→21:19)
[2018-08-20 05:42] LABS: HEMOGLOBIN 9.5 g/dL (12.0-15.5); MEAN CORPUSCULAR HEMOGLOBIN 30.5 pg (27.0-33.4); MEAN CORPUSCULAR VOLUME 87 fl (80-97); PLATELET COUNT 144 10^3/uL (150-450); RED BLOOD COUNT 3.11 10^6/uL (3.72-5.28); RED CELL DISTRIBUTION WIDTH 13.4 % (11.5-14.0); WHITE BLOOD COUNT 7.2 10^3/uL (4.0-10.5)
[2018-08-20 06:08] LABS: ANION GAP 6 (5-19); BLOOD UREA NITROGEN 21 mg/dL (7-20); CALCIUM 8.6 mg/dL (8.4-10.2); CARBON DIOXIDE 24 mmol/L (22-30); CHLORIDE 104 mmol/L (98-107); CHOLESTEROL 171.03 mg/dL (0-200); GLUCOSE 148 mg/dL (75-110); POTASSIUM 4.2 mmol/L (3.6-5.0); SODIUM 134.3 mmol/L (137-145); TRIGLYCERIDES 135 mg/dL (<150)
[2018-08-20 06:19] LABS: DIRECT LDL 116 mg/dL (<100)
[2018-08-20] MEDS: INSULIN LISPRO 100 UNIT/ML 3 ML VIAL SUBCUT PRN (09:02)
[2018-08-20] MEDS: METOPROLOL SUCCINATE 25 MG TAB.SR.24H PO SCH ×2 (09:03→21:19)
[2018-08-20] MEDS: ASPIRIN 81 MG TABLET, CHEWABLE PO SCH (09:03)
[2018-08-20] MEDS: DOCUSATE SODIUM 100 MG CAPSULE PO SCH ×2 (09:05→17:43)
[2018-08-20] MEDS: VALSARTAN 80 MG TABLET PO SCH ×2 (09:05→21:19)
[2018-08-20] MEDS: MAGNESIUM HYDROXIDE SUSP 30 ML UDCUP PO PRN (13:10)
[2018-08-20] MEDS ORDERED: INSULIN LISPRO 100 UNIT/ML 3 ML VIAL SUBCUT SCH (16:00)
[2018-08-20] MEDS: ACETAMINOPHEN 325 MG TABLET PO PRN (16:29)
[2018-08-20] MEDS: INSULIN LISPRO 100 UNIT/ML 3 ML VIAL SUBCUT SCH ×2 (17:43→21:19)
[2018-08-20] MEDS: RIVAROXABAN 10 MG TABLET PO SCH (17:43)
[2018-08-20] MEDS: CEFTRIAXONE 1 GM/D5W RTU 1 GM/50 ML RTUPB IV SCH (17:43)
--- NOTE | 2018-08-20 17:49 | PDOC PROGRESS REPORT ---
Subjective Progress Note for:: 08/20/18 Subjective:: This is a 77 year old female with a past medical history of congestive heart failure, coronary artery disease, piror CABG, prior AICD placement, rheumatic heart disease, diabetes and history of recurrent falls who fell at home and sustained a minimally displaced left trochanteric femoral fracture. Patient says she fell "like she used to", that she was trying to ambulate and had recurrence of her "head spinning" like she often has and fell on the floor. Patient underwent nailing of left intertrochanteric hip fracture on 08/18/18 which was uneventful. No acute event overnight. Pain is well controlled. She denies chest pain, SOB or palpitations. Patient had low grade temp of 100 F this afternoon. Reason For Visit: LEFT HIP FRACTURE, DIABETES Physical Exam Vital Signs: Temp Pulse Resp BP Pulse Ox 99.7 F 80 20 111/56 L 93 08/20/18 13:01 08/20/18 13:01 08/20/18 13:01 08/20/18 13:01 08/20/18 13:01 Intake & Output 08/19/18 08/20/18 08/21/18 06:59 06:59 06:59 Intake Total 2018 896 Output Total 925 350 Balance 1093 546 Weight 121 lb 11.123 oz 133 lb 6.075 oz General appearance: PRESENT: no acute distress, well-developed, well-nourished Head exam: PRESENT: atraumatic, normocephalic Eye exam: PRESENT: conjunctiva pink, EOMI, PERRLA. ABSENT: scleral icterus Ear exam: PRESENT: normal external ear exam Mouth exam: PRESENT: moist, tongue midline Neck exam: ABSENT: carotid bruit, JVD, lymphadenopathy, thyromegaly Respiratory exam: PRESENT: clear to auscultation joann. ABSENT: rales, rhonchi, wheezes Cardiovascular exam: PRESENT: RRR. ABSENT: diastolic murmur, rubs, systolic murmur GI/Abdominal exam: PRESENT: normal bowel sounds, soft. ABSENT: distended, guarding, mass, organolmegaly, rebound, tenderness Rectal exam: PRESENT: deferred Neurological exam: PRESENT: alert, awake, oriented to person, oriented to place, oriented to time, oriented to situation Results Laboratory Results: 08/20/18 05:10 08/20/18 05:10 08/20/18 08/20/18 05:10 05:10 WBC 7.2 RBC 3.11 L Hgb 9.5 L Hct 27.0 L MCV 87 MCH 30.5 MCHC 35.0 RDW 13.4 Plt Count 144 L Sodium 134.3 L Potassium 4.2 Chloride 104 Carbon Dioxide 24 Anion Gap 6 BUN 21 H Creatinine 1.11 Est GFR ( Amer) 58 L Est GFR (Non-Af Amer) 48 L Glucose 148 H Calcium 8.6 Triglycerides 135 Cholesterol 171.03 LDL Cholesterol Direct 116 H VLDL Cholesterol 27.0 HDL Cholesterol 41 08/17/18 08/17/18 08/18/18 21:35 21:35 03:27 Creatine Kinase 28 L 29 L CK-MB (CK-2) 0.71 Troponin I 0.028 08/18/18 08/18/18 08/18/18 03:27 09:35 09:35 Creatine Kinase 32 CK-MB (CK-2) 0.74 0.85 Troponin I 0.024 0.028 08/19/18 08/20/18 05:32 05:10 Creatine Kinase CK-MB (CK-2) Troponin I 0.027 0.027 Impressions: Cervical Spine CT 08/17/18 20:05 IMPRESSION: 1. Straightening of the cervical spine which may be secondary to positioning for the examination versus spasm. 2. Multilevel degenerative change without fracture or acute subluxation. 3. Incidentally noted severe narrowing at the level of the craniocervical junction secondary to dense pannus formation and irregularity, hypertrophy of the clivus raising the question of sequela of prior trauma, congenital etiology and/or inflammatory arthropathy. If not previously performed, follow-up evaluation with MRI may be considered. TECHNICAL DOCUMENTATION: Quality ID # [id number]: Final reports with documentation of one or more dose reduction techniques (e.g., Automated exposure control, adjustment of the mA and/or kV according to patient size, use of iterative reconstruction technique) copyright 2011 [employer]- All Rights Reserved Femur X-Ray 08/17/18 20:05 IMPRESSION: Mildly displaced intratrochanteric left femoral neck fracture. Head CT 08/17/18 20:05 IMPRESSION: 1. No acute intracranial abnormalities. Nonspecific white matter change most likely small vessel ischemic disease, age indeterminate. 2. CT is insensitive for early evaluation of acute stroke. If there is clinical concern for acute ischemia, an MRI may be considered. 3. Incidentally noted severe narrowing at the level of the craniocervical junction secondary to dense callus formation and irregularity, hypertrophy of the clivus raising the question of sequela of prior trauma, congenital etiology and/or inflammatory arthropathy. TECHNICAL DOCUMENTATION: Quality ID # [id number]: Final reports with documentation of one or more dose reduction techniques (e.g., Automated exposure control, adjustment of the mA and/or kV according to patient size, use of iterative reconstruction technique) copyright 2010 [employer]- All Rights Reserved Knee X-Ray 08/17/18 20:05 IMPRESSION: Mildly displaced intratrochanteric left femoral neck fracture. Chest X-Ray 08/17/18 20:34 IMPRESSION: No acute cardiopulmonary abnormality. Elbow X-Ray 08/18/18 00:00 IMPRESSION: Degenerative changes involving the elbow joint, with a possible small joint effusion. copyright 2010 [employer]- All Rights Reserved Fluoroscopy 08/18/18 00:00 IMPRESSION: Limited intraoperative images of the left femur fixation obtained to evaluate or progress. Please see operative report for detailed description of procedure. Hip X-Ray 08/18/18 00:00 IMPRESSION: Limited intraoperative images of the left femur fixation obtained to evaluate or progress. Please see operative report for detailed description of procedure. Shoulder X-Ray 08/18/18 00:00 IMPRESSION: No acute fracture or malalignment. Assessment & Plan - Diagnosis (1) Hip fracture Qualifiers: Encounter type: initial encounter Fracture type: closed Laterality: left Qualified Code(s): S72.002A - Fracture of unspecified part of neck of left femur, initial encounter for closed fracture Is this a current diagnosis for this admission?: Yes Plan: S/P Nailing of left intertrochanteric hip fracture on 08/18/18. Switched DVT prophylaxis to Xarelto per ortho recommendation. (2) Congestive heart failure Is this a current diagnosis for this admission?: Yes Plan: Recent echo shows EF of <25%. Cardiology following. Started on lopressor and valsartan. (3) Coronary artery disease Is this a current diagnosis for this admission?: Yes Plan: Started on aspirin. (4) Diabetes mellitus Qualifiers: Diabetes mellitus type: type 2 Is this a current diagnosis for this admission?: Yes Plan: She takes metformin at home. Continue sliding scale for now. (5) UTI (urinary tract infection) Is this a current diagnosis for this admission?: Yes Plan: Continue Rocephin. Patient had low grade fever this afternoon. Will also do a blood culture and CXR. - Time Time Spent with patient: 25-34 minutes
--- NOTE | 2018-08-20 18:14 | Progress Note ---
Provider Note Provider Note: CARDIOLOGY PROGRESS NOTE by Dr. Martha Zheng on 08/20/2018. SUBJECTIVE: The patient states the pain control is better. She denies any chest pain or discomfort. There is no shortness of breath. There is no PND orthopnea. There is no leg edema. There is no firing of AICD. Patient denies any palpitations, near syncope dizziness or syncope. There is no leg edema. There is no symptoms of TIA CVA. The patient is tolerating a beta-rosario in the ARB well. There is no arrhythmias seen on the monitor. PHYSICAL EXAMINATION: The patient is well-built and well-nourished. In no acute distress. She is well-groomed. Selected Entries 08/20/18 13:01 Temperature 99.7 F Temperature Oral Source Pulse Rate 80 Respiratory 20 Rate Blood Pressure 111/56 L Blood Pressure 74 Mean BP Location Right Arm BP Position Supine O2 Sat by Pulse 93 Oximetry Oxygen Delivery Room Air Method HEAD: Is atraumatic normocephalic. EYES: Pupils are equal round regular reactive to light accommodation. Extraocular movements are normal. There is no conjunctival pallor. There is no scleral icterus. EARS: Tympanic membranes are intact. External auditory canals are clear. NOSE: There is no deviated nasal septum. There is no inflammation of the nasal mucous membrane. MOUTH: Mucous membranes of mouth, and tongue are moist. There is no ulcers in the mouth. There is no bleeding from the gums. THROAT: There is no redness of the oropharynx. There is no exudates in the throat. SKIN: There is no ecchymosis or petechiae. There is no skin lesions or skin rashes. NECK: Is supple. There is no JVD. Carotids are equal there is no bruit. There is no lymphadenopathy. There is no goiter. There is no accessory muscle respiration in use. Trachea central. LUNGS: Clear to auscultation percussion, without any rhonchi rales or wheezing. HEART: S1-S2 is heard. There is no S3 gallop there is no S4 gallop there is systolic murmur left sternal border and the apex there is no rub. ABDOMEN: Is soft. There is no hepatosplenomegaly. Bowel sounds are well heard. There is no tender areas of masses. There is no rebound guarding or rigidity. Extremities: Femorals Are Well [place]. There Is No Femoral Bruits. Leg Pulses Are Well [place]. There Is No Pedal Edema. There Is No DVT or Cellulitis. There Is Some Tenderness in the Left Hip Area. There Is No Neurovascular Compromise the Left Lower Extremity. There Is No Sinus or Clubbing. Capillary Refill Is Normal. ENGINE DESIGNER: The Patient Is Conscious Awake Alert Oriented x3. There Is No Focal Deficits. PSYCHIATRIC: The Patient Judgment and Insight Are Intact Her Affect Is Normal. 08/20/18 08/20/18 05:10 05:10 WBC 7.2 RBC 3.11 L Hgb 9.5 L Hct 27.0 L MCV 87 MCH 30.5 MCHC 35.0 RDW 13.4 Plt Count 144 L Sodium 134.3 L Potassium 4.2 Chloride 104 Carbon Dioxide 24 Anion Gap 6 BUN 21 H Creatinine 1.11 Est GFR (Non-Af Amer) 48 L Glucose 148 H Calcium 8.6 Triglycerides 135 Cholesterol 171.03 LDL Cholesterol Direct 116 H VLDL Cholesterol 27.0 HDL Cholesterol 41 IMPRESSION: 1. Coronary artery disease, history of PR, and history of coronary bypass graft surgery, without angina. 2. Ischemic cardiomyopathy with severely reduced LV ejection fraction. Patient is well compensated at present. 3. History of AICD placement: No recent firing of AICD. 4. Diabetes mellitus type 2 [id number]. 5. Accidental fall and fracture of left hip. Patient is status post surgical repair of the left hip fracture.. RECOMMENDATION: 1. Continue the patient on Toprol-XL 25 mg p.o. every 12 hours. We will increase this as tolerated. Also will increase the patient's valsartan to 80 mg p.o. every 12 hours. Continue aspirin. Cardiac status is stable. The patient will follow up with her [employer] in [place]. We will sign off the case. Thanking you for allowing me to participate in the care of this patient.
[2018-08-21] MEDS: OXYCODONE HCL IR 5 MG TABLET PO PRN ×4 (04:56→23:19)
[2018-08-21 06:11] LABS: ABSOLUTE BASOPHILS # (AUTO) 0.1 10^3/uL (0.0-0.2); ABSOLUTE EOSINOPHILS # (AUTO) 0.2 10^3/uL (0.0-0.6); ABSOLUTE LYMPHOCYTES (AUTO) 1.3 10^3/uL (0.5-4.7); ABSOLUTE MONOCYTES (AUTO) 0.6 10^3/uL (0.1-1.4); ABSOLUTE NEUT (AUTO) 4.9 10^3/uL (1.7-8.2); BASOPHILS % (AUTO) 0.9 % (0-2); EOSINOPHILS % (AUTO) 3.1 % (0-6); HEMATOCRIT 26.6 % (36.0-47.0); HEMOGLOBIN 9.3 g/dL (12.0-15.5); LYMPHOCYTES % (AUTO) 18.3 % (13-45); MEAN CORPUSCULAR HEMOGLOBIN 30.6 pg (27.0-33.4); MEAN CORPUSCULAR HGB CONC 34.9 g/dL (32.0-36.0); MEAN CORPUSCULAR VOLUME 88 fl (80-97); MONOCYTES % (AUTO) 9.1 % (3-13); PLATELET COUNT 170 10^3/uL (150-450); RED BLOOD COUNT 3.03 10^6/uL (3.72-5.28); RED CELL DISTRIBUTION WIDTH 13.4 % (11.5-14.0); SEGMENTED NEUTROPHILS % (AUTO) 68.6 % (42-78); TOTAL CELLS COUNTED % (AUTO) 100 %; WHITE BLOOD COUNT 7.1 10^3/uL (4.0-10.5)
[2018-08-21 06:49] LABS: ANION GAP 8 (5-19); BLOOD UREA NITROGEN 26 mg/dL (7-20); CALCIUM 8.7 mg/dL (8.4-10.2); CARBON DIOXIDE 24 mmol/L (22-30); CHLORIDE 102 mmol/L (98-107); GLUCOSE 197 mg/dL (75-110); POTASSIUM 4.3 mmol/L (3.6-5.0); SODIUM 134.1 mmol/L (137-145)
--- NOTE | 2018-08-21 07:50 | PDOC PROGRESS REPORT ---
Subjective Progress Note for:: 08/21/18 Reason For Visit: LEFT HIP FRACTURE, DIABETES 77-year-old white female now postop day 3 status post open reduction internal fixation of a left intratrochanteric femur fracture. Patient complaining about pain overnight. Very limited progress with physical therapy. Otherwise unev entful postoperative course. Physical Exam Vital Signs: Temp Pulse Resp BP Pulse Ox 36.8 C 69 16 100/45 L 96 08/20/18 23:15 08/20/18 23:15 08/20/18 23:15 08/20/18 23:15 08/20/18 23:15 Intake & Output 08/20/18 08/21/18 08/22/18 06:59 06:59 06:59 Intake Total 896 1057 Output Total 350 750 Balance 546 307 Weight 60.5 kg 53.7 kg General appearance: PRESENT: no acute distress Head exam: PRESENT: normocephalic Respiratory exam: PRESENT: unlabored Cardiovascular exam: PRESENT: RRR Pulses: PRESENT: +1 pedal pulses bilateral Vascular exam: PRESENT: normal capillary refill GI/Abdominal exam: PRESENT: soft Rectal exam: PRESENT: deferred Extremities exam: PRESENT: other - Left lower extremity dressings clean dry and intact. Leg lengths are equal. Distal neurovascular examination is intact. Results Laboratory Results: 08/21/18 06:00 08/21/18 06:00 08/21/18 08/21/18 06:00 06:00 WBC 7.1 RBC 3.03 L Hgb 9.3 L Hct 26.6 L MCV 88 MCH 30.6 MCHC 34.9 RDW 13.4 Plt Count 170 Seg Neutrophils % 68.6 Lymphocytes % 18.3 Monocytes % 9.1 Eosinophils % 3.1 Basophils % 0.9 Absolute Neutrophils 4.9 Absolute Lymphocytes 1.3 Absolute Monocytes 0.6 Absolute Eosinophils 0.2 Absolute Basophils 0.1 Sodium 134.1 L Potassium 4.3 Chloride 102 Carbon Dioxide 24 Anion Gap 8 BUN 26 H Creatinine 1.15 Est GFR ( Amer) 56 L Est GFR (Non-Af Amer) 46 L Glucose 197 H Calcium 8.7 08/17/18 08/17/18 08/18/18 21:35 21:35 03:27 Creatine Kinase 28 L 29 L CK-MB (CK-2) 0.71 Troponin I 0.028 08/18/18 08/18/18 08/18/18 03:27 09:35 09:35 Creatine Kinase 32 CK-MB (CK-2) 0.74 0.85 Troponin I 0.024 0.028 08/19/18 08/20/18 05:32 05:10 Creatine Kinase CK-MB (CK-2) Troponin I 0.027 0.027 Impressions: Cervical Spine CT 08/17/18 20:05 IMPRESSION: 1. Straightening of the cervical spine which may be secondary to positioning for the examination versus spasm. 2. Multilevel degenerative change without fracture or acute subluxation. 3. Incidentally noted severe narrowing at the level of the craniocervical junction secondary to dense pannus formation and irregularity, hypertrophy of the clivus raising the question of sequela of prior trauma, congenital etiology and/or inflammatory arthropathy. If not previously performed, follow-up evaluation with MRI may be considered. TECHNICAL DOCUMENTATION: Quality ID # [id number]: Final reports with documentation of one or more dose reduction techniques (e.g., Automated exposure control, adjustment of the mA and/or kV according to patient size, use of iterative reconstruction technique) copyright 2010 [employer]- All Rights Reserved Femur X-Ray 08/17/18 20:05 IMPRESSION: Mildly displaced intratrochanteric left femoral neck fracture. Head CT 08/17/18 20:05 IMPRESSION: 1. No acute intracranial abnormalities. Nonspecific white matter change most likely small vessel ischemic disease, age indeterminate. 2. CT is insensitive for early evaluation of acute stroke. If there is clinical concern for acute ischemia, an MRI may be considered. 3. Incidentally noted severe narrowing at the level of the craniocervical junction secondary to dense callus formation and irregularity, hypertrophy of the clivus raising the question of sequela of prior trauma, congenital etiology and/or inflammatory arthropathy. TECHNICAL DOCUMENTATION: Quality ID # [id number]: Final reports with documentation of one or more dose reduction techniques (e.g., Automated exposure control, adjustment of the mA and/or kV according to patient size, use of iterative reconstruction technique) copyright 2010 [employer]- All Rights Reserved Knee X-Ray 08/17/18 20:05 IMPRESSION: Mildly displaced intratrochanteric left femoral neck fracture. Elbow X-Ray 08/18/18 00:00 IMPRESSION: Degenerative changes involving the elbow joint, with a possible small joint effusion. copyright 2010 [employer]- All Rights Reserved Fluoroscopy 08/18/18 00:00 IMPRESSION: Limited intraoperative images of the left femur fixation obtained to evaluate or progress. Please see operative report for detailed description of procedure. Hip X-Ray 08/18/18 00:00 IMPRESSION: Limited intraoperative images of the left femur fixation obtained to evaluate or progress. Please see operative report for detailed description of procedure. Shoulder X-Ray 08/18/18 00:00 IMPRESSION: No acute fracture or malalignment. Status: Imported from PACS Assessment & Plan - Diagnosis (1) Intertrochanteric fracture of left hip Qualifiers: Encounter type: initial encounter Fracture type: closed Fracture alignment: displaced Qualified Code(s): S72.142A - Displaced intertrochanteric fracture of left femur, initial encounter for closed fracture Is this a current diagnosis for this admission?: Yes Plan: 77-year-old female now postop day 3 status post intramedullary fixation of a left intratrochanteric femur fracture. Patient with limited progress with physical therapy. Effort should continue with weightbearing as tolerated ambulation but I suspect that this will be slow in part limited by her comorbidities and her cardiac situation. Anticipate the need for longterm facility placement. - Time Time Spent with patient: 15-24 minutes Anticipated discharge: SNF Within: Other
--- NOTE | 2018-08-21 08:50 | RADIOLOGY REPORT (SQ) ---
EXAM DESCRIPTION: CHEST SINGLE VIEW COMPLETED DATE/TIME: 08/21/2018 7:34 am REASON FOR STUDY: assess for infiltrates COMPARISON: 08/17/2018 EXAM PARAMETERS: NUMBER OF VIEWS: One view. TECHNIQUE: Single frontal radiographic view of the chest acquired. RADIATION DOSE: NA LIMITATIONS: None. FINDINGS: LUNGS AND PLEURA: No opacities, masses or pneumothorax. No pleural effusion. MEDIASTINUM AND HILAR STRUCTURES: No masses. Contour normal. HEART AND VASCULAR STRUCTURES: Cardiomegaly with left chest multi lead pacer defibrillator BONES: No acute findings. HARDWARE: None in the chest. OTHER: No other significant finding. IMPRESSION: Cardiomegaly without acute abnormality of the lungs in AP projection. TECHNICAL DOCUMENTATION: JOB ID: [id number] [employer]- All Rights Reserved Reading location - IP/workstation name: [email or web address]
[2018-08-21] MEDS: VALSARTAN 80 MG TABLET PO SCH ×2 (10:22→21:34)
[2018-08-21] MEDS: ASPIRIN 81 MG TABLET, CHEWABLE PO SCH (10:25)
[2018-08-21] MEDS: METOPROLOL SUCCINATE 25 MG TAB.SR.24H PO SCH ×2 (10:25→21:34)
[2018-08-21] MEDS: INSULIN LISPRO 100 UNIT/ML 3 ML VIAL SUBCUT SCH ×4 (10:25→23:17)
[2018-08-21] MEDS: DOCUSATE SODIUM 100 MG CAPSULE PO SCH ×2 (10:25→18:57)
--- NOTE | 2018-08-21 17:10 | PDOC PROGRESS REPORT ---
Subjective Progress Note for:: 08/21/18 Subjective:: This is a 77 year old female with a past medical history of congestive heart failure, coronary artery disease, piror CABG, prior AICD placement, rheumatic heart disease, diabetes and history of recurrent falls who fell at home and sustained a minimally displaced left trochanteric femoral fracture. Patient says she fell "like she used to", that she was trying to ambulate and had recurrence of her "head spinning" like she often has and fell on the floor. Patient underwent nailing of left intertrochanteric hip fracture on 08/18/18 which was uneventful. No acute event overnight. She had some mild pain on the surgical site. She denies chest pain, SOB or palpitations. No recurrence of fever. Reason For Visit: LEFT HIP FRACTURE, DIABETES Physical Exam Vital Signs: Temp Pulse Resp BP Pulse Ox 99.4 F 79 16 101/49 L 93 08/21/18 15:47 08/21/18 15:47 08/21/18 15:47 08/21/18 15:47 08/21/18 15:47 Intake & Output 08/20/18 08/21/18 08/22/18 06:59 06:59 06:59 Intake Total 896 1057 590 Output Total 350 750 280 Balance 546 307 310 Weight 133 lb 6.075 oz 118 lb 6.212 oz General appearance: PRESENT: no acute distress, well-developed, well-nourished Head exam: PRESENT: atraumatic, normocephalic Eye exam: PRESENT: conjunctiva pink, EOMI, PERRLA. ABSENT: scleral icterus Ear exam: PRESENT: normal external ear exam Neck exam: ABSENT: carotid bruit, JVD, lymphadenopathy, thyromegaly Respiratory exam: PRESENT: clear to auscultation joann. ABSENT: rales, rhonchi, wheezes Cardiovascular exam: PRESENT: RRR. ABSENT: diastolic murmur, rubs, systolic murmur Pulses: PRESENT: normal dorsalis pedis pul GI/Abdominal exam: PRESENT: normal bowel sounds, soft. ABSENT: distended, guarding, mass, organolmegaly, rebound, tenderness Rectal exam: PRESENT: deferred Neurological exam: PRESENT: alert, awake, oriented to person, oriented to place, oriented to time, oriented to situation, CN II-XII grossly intact. ABSENT: motor sensory deficit Results Laboratory Results: 08/21/18 06:00 08/21/18 06:00 08/21/18 08/21/18 06:00 06:00 WBC 7.1 RBC 3.03 L Hgb 9.3 L Hct 26.6 L MCV 88 MCH 30.6 MCHC 34.9 RDW 13.4 Plt Count 170 Seg Neutrophils % 68.6 Lymphocytes % 18.3 Monocytes % 9.1 Eosinophils % 3.1 Basophils % 0.9 Absolute Neutrophils 4.9 Absolute Lymphocytes 1.3 Absolute Monocytes 0.6 Absolute Eosinophils 0.2 Absolute Basophils 0.1 Sodium 134.1 L Potassium 4.3 Chloride 102 Carbon Dioxide 24 Anion Gap 8 BUN 26 H Creatinine 1.15 Est GFR ( Amer) 56 L Est GFR (Non-Af Amer) 46 L Glucose 197 H Calcium 8.7 08/17/18 08/17/18 08/18/18 21:35 21:35 03:27 Creatine Kinase 28 L 29 L CK-MB (CK-2) 0.71 Troponin I 0.028 08/18/18 08/18/18 08/18/18 03:27 09:35 09:35 Creatine Kinase 32 CK-MB (CK-2) 0.74 0.85 Troponin I 0.024 0.028 08/19/18 08/20/18 05:32 05:10 Creatine Kinase CK-MB (CK-2) Troponin I 0.027 0.027 Impressions: Cervical Spine CT 08/17/18 20:05 IMPRESSION: 1. Straightening of the cervical spine which may be secondary to positioning for the examination versus spasm. 2. Multilevel degenerative change without fracture or acute subluxation. 3. Incidentally noted severe narrowing at the level of the craniocervical junction secondary to dense pannus formation and irregularity, hypertrophy of the clivus raising the question of sequela of prior trauma, congenital etiology and/or inflammatory arthropathy. If not previously performed, follow-up evaluation with MRI may be considered. TECHNICAL DOCUMENTATION: Quality ID # 436: Final reports with documentation of one or more dose reduction techniques (e.g., Automated exposure control, adjustment of the mA and/or kV according to patient size, use of iterative reconstruction technique) copyright 2011 [employer]- All Rights Reserved Femur X-Ray 08/17/18 20:05 IMPRESSION: Mildly displaced intratrochanteric left femoral neck fracture. Head CT 08/17/18 20:05 IMPRESSION: 1. No acute intracranial abnormalities. Nonspecific white matter change most likely small vessel ischemic disease, age indeterminate. 2. CT is insensitive for early evaluation of acute stroke. If there is clinical concern for acute ischemia, an MRI may be considered. 3. Incidentally noted severe narrowing at the level of the craniocervical junction secondary to dense callus formation and irregularity, hypertrophy of the clivus raising the question of sequela of prior trauma, congenital etiology and/or inflammatory arthropathy. TECHNICAL DOCUMENTATION: Quality ID # [id number]: Final reports with documentation of one or more dose reduction techniques (e.g., Automated exposure control, adjustment of the mA and/or kV according to patient size, use of iterative reconstruction technique) copyright 2010 [employer]- All Rights Reserved Knee X-Ray 08/17/18 20:05 IMPRESSION: Mildly displaced intratrochanteric left femoral neck fracture. Elbow X-Ray 08/18/18 00:00 IMPRESSION: Degenerative changes involving the elbow joint, with a possible small joint effusion. copyright 2011 [employer]- All Rights Reserved Fluoroscopy 08/18/18 00:00 IMPRESSION: Limited intraoperative images of the left femur fixation obtained to evaluate or progress. Please see operative report for detailed description of procedure. Hip X-Ray 08/18/18 00:00 IMPRESSION: Limited intraoperative images of the left femur fixation obtained to evaluate or progress. Please see operative report for detailed description of procedure. Shoulder X-Ray 08/18/18 00:00 IMPRESSION: No acute fracture or malalignment. Chest X-Ray 08/21/18 06:00 IMPRESSION: Cardiomegaly without acute abnormality of the lungs in AP projection. Assessment & Plan - Diagnosis (1) Hip fracture Qualifiers: Encounter type: initial encounter Fracture type: closed Laterality: left Qualified Code(s): S72.002A - Fracture of unspecified part of neck of left femur, initial encounter for closed fracture Is this a current diagnosis for this admission?: Yes Plan: S/P Nailing of left intertrochanteric hip fracture on 08/18/18. Switched DVT prophylaxis to Xarelto per ortho recommendation. Discussed going to inpatient rehab and patient is agreeable to plan. (2) Congestive heart failure Is this a current diagnosis for this admission?: Yes Plan: Recent echo shows EF of <25%. Cardiology following. Started on lopressor and valsartan. (3) Coronary artery disease Is this a current diagnosis for this admission?: Yes Plan: Started on aspirin. (4) Diabetes mellitus Qualifiers: Diabetes mellitus type: type 2 Is this a current diagnosis for this admission?: Yes Plan: She takes metformin at home. Continue sliding scale for now. (5) UTI (urinary tract infection) Is this a current diagnosis for this admission?: Yes Plan: Continue Rocephin. - Time Time Spent with patient: 15-24 minutes
[2018-08-21] MEDS: RIVAROXABAN 10 MG TABLET PO SCH (18:57)
[2018-08-21] MEDS: CEFTRIAXONE 1 GM/D5W RTU 1 GM/50 ML RTUPB IV SCH (18:58)
[2018-08-22] MEDS: ACETAMINOPHEN 325 MG TABLET PO PRN ×2 (08:20→22:43)
[2018-08-22] MEDS: INSULIN LISPRO 100 UNIT/ML 3 ML VIAL SUBCUT SCH ×4 (08:21→22:26)
[2018-08-22] MEDS: VALSARTAN 80 MG TABLET PO SCH ×2 (10:34→22:28)
[2018-08-22] MEDS: METOPROLOL SUCCINATE 25 MG TAB.SR.24H PO SCH ×2 (11:00→22:28)
[2018-08-22] MEDS: ASPIRIN 81 MG TABLET, CHEWABLE PO SCH (11:00)
[2018-08-22] MEDS: DOCUSATE SODIUM 100 MG CAPSULE PO SCH ×2 (11:00→18:50)
--- NOTE | 2018-08-22 14:39 | PDOC PROGRESS REPORT ---
Subjective Progress Note for:: 08/22/18 Subjective:: This is a 77 year old female with a past medical history of congestive heart failure, coronary artery disease, prior CABG, prior AICD placement, rheumatic heart disease, diabetes and history of recurrent falls who fell at home and sustained a minimally displaced left trochanteric femoral fracture. Patient says she fell "like she used to", that she was trying to ambulate and had recurrence of her "head spinning" like she often has and fell on the floor. Patient underwent nailing of left intertrochanteric hip fracture on 08/18/18 which was uneventful. No acute event overnight. Pain is well-controlled upon encounter. She did work with PT today but was noted to be generally weak and was just able to stand on the side of the bed with significant assistance. She denies chest pain, SOB or palpitations. No recurrence of fever. Patient and son (David) was updated about plan for discharge to inpatient rehab and they are agreeable. Reason For Visit: LEFT HIP FRACTURE, DIABETES Physical Exam Vital Signs: Temp Pulse Resp BP Pulse Ox 98.5 F 70 16 118/49 L 98 08/22/18 11:43 08/22/18 11:43 08/22/18 11:43 08/22/18 11:43 08/22/18 11:43 Intake & Output 08/21/18 08/22/18 08/23/18 06:59 06:59 06:59 Intake Total 1057 1058 Output Total 750 930 Balance 307 128 Weight 118 lb 6.212 oz 117 lb 1.047 oz General appearance: PRESENT: no acute distress, well-developed, well-nourished Head exam: PRESENT: atraumatic, normocephalic Eye exam: PRESENT: conjunctiva pink, EOMI, PERRLA. ABSENT: scleral icterus Ear exam: PRESENT: normal external ear exam Mouth exam: PRESENT: moist, tongue midline Neck exam: ABSENT: carotid bruit, JVD, lymphadenopathy, thyromegaly Respiratory exam: PRESENT: clear to auscultation joann. ABSENT: rales, rhonchi, wheezes Cardiovascular exam: PRESENT: RRR. ABSENT: diastolic murmur, rubs, systolic murmur Pulses: PRESENT: normal dorsalis pedis pul GI/Abdominal exam: PRESENT: normal bowel sounds, soft. ABSENT: distended, guarding, mass, organolmegaly, rebound, tenderness Rectal exam: PRESENT: deferred Neurological exam: PRESENT: alert, awake, oriented to person, oriented to place, CN II-XII grossly intact. ABSENT: motor sensory deficit Results Laboratory Results: 08/21/18 06:00 08/21/18 06:00 08/17/18 08/17/18 08/18/18 21:35 21:35 03:27 Creatine Kinase 28 L 29 L CK-MB (CK-2) 0.71 Troponin I 0.028 08/18/18 08/18/18 08/18/18 03:27 09:35 09:35 Creatine Kinase 32 CK-MB (CK-2) 0.74 0.85 Troponin I 0.024 0.028 08/19/18 08/20/18 05:32 05:10 Creatine Kinase CK-MB (CK-2) Troponin I 0.027 0.027 Impressions: Cervical Spine CT 08/17/18 20:05 IMPRESSION: 1. Straightening of the cervical spine which may be secondary to positioning for the examination versus spasm. 2. Multilevel degenerative change without fracture or acute subluxation. 3. Incidentally noted severe narrowing at the level of the craniocervical junction secondary to dense pannus formation and irregularity, hypertrophy of the clivus raising the question of sequela of prior trauma, congenital etiology and/or inflammatory arthropathy. If not previously performed, follow-up evaluation with MRI may be considered. TECHNICAL DOCUMENTATION: Quality ID # [id number]: Final reports with documentation of one or more dose reduction techniques (e.g., Automated exposure control, adjustment of the mA and/or kV according to patient size, use of iterative reconstruction technique) copyright 2011 [employer]- All Rights Reserved Femur X-Ray 08/17/18 20:05 IMPRESSION: Mildly displaced intratrochanteric left femoral neck fracture. Head CT 08/17/18 20:05 IMPRESSION: 1. No acute intracranial abnormalities. Nonspecific white matter change most likely small vessel ischemic disease, age indeterminate. 2. CT is insensitive for early evaluation of acute stroke. If there is clinical concern for acute ischemia, an MRI may be considered. 3. Incidentally noted severe narrowing at the level of the craniocervical junction secondary to dense callus formation and irregularity, hypertrophy of the clivus raising the question of sequela of prior trauma, congenital etiology and/or inflammatory arthropathy. TECHNICAL DOCUMENTATION: Quality ID # [id number]: Final reports with documentation of one or more dose reduction techniques (e.g., Automated exposure control, adjustment of the mA and/or kV according to patient size, use of iterative reconstruction technique) copyright 2010 [employer]- All Rights Reserved Knee X-Ray 08/17/18 20:05 IMPRESSION: Mildly displaced intratrochanteric left femoral neck fracture. Elbow X-Ray 08/18/18 00:00 IMPRESSION: Degenerative changes involving the elbow joint, with a possible small joint effusion. copyright 2010 [employer]- All Rights Reserved Fluoroscopy 08/18/18 00:00 IMPRESSION: Limited intraoperative images of the left femur fixation obtained to evaluate or progress. Please see operative report for detailed description of procedure. Hip X-Ray 08/18/18 00:00 IMPRESSION: Limited intraoperative images of the left femur fixation obtained to evaluate or progress. Please see operative report for detailed description of procedure. Shoulder X-Ray 08/18/18 00:00 IMPRESSION: No acute fracture or malalignment. Chest X-Ray 08/21/18 06:00 IMPRESSION: Cardiomegaly without acute abnormality of the lungs in AP projection. Assessment & Plan - Diagnosis (1) Hip fracture Qualifiers: Encounter type: initial encounter Fracture type: closed Laterality: left Qualified Code(s): S72.002A - Fracture of unspecified part of neck of left femur, initial encounter for closed fracture Is this a current diagnosis for this admission?: Yes Plan: S/P Nailing of left intertrochanteric hip fracture on 08/18/18. Switched DVT prophylaxis to Xarelto per ortho recommendation. Discussed going to inpatient rehab and patient and son are agreeable to plan. Placement process initiated. (2) Congestive heart failure Is this a current diagnosis for this admission?: Yes Plan: Recent echo shows EF of <25%. Cardiology following. Continue lopressor and valsartan. (3) Coronary artery disease Is this a current diagnosis for this admission?: Yes Plan: Stable. Continue aspirin. (4) Diabetes mellitus Qualifiers: Diabetes mellitus type: type 2 Is this a current diagnosis for this admission?: Yes Plan: She takes metformin at home. Continue sliding scale for now. (5) UTI (urinary tract infection) Is this a current diagnosis for this admission?: Yes Plan: Continue Rocephin. - Time Time Spent with patient: 25-34 minutes
[2018-08-22] MEDS: CEFTRIAXONE 1 GM/D5W RTU 1 GM/50 ML RTUPB IV SCH (18:50)
[2018-08-22] MEDS: RIVAROXABAN 10 MG TABLET PO SCH (18:51)
[2018-08-22] MEDS: OXYCODONE HCL IR 5 MG TABLET PO PRN (18:57)
[2018-08-23] MEDS: MAGNESIUM HYDROXIDE SUSP 30 ML UDCUP PO PRN ×2 (05:41→21:38)
[2018-08-23] MEDS: OXYCODONE HCL IR 5 MG TABLET PO PRN ×3 (05:44→21:37)
[2018-08-23] MEDS: DOCUSATE SODIUM 100 MG CAPSULE PO SCH ×2 (09:43→17:29)
[2018-08-23] MEDS: METOPROLOL SUCCINATE 25 MG TAB.SR.24H PO SCH ×2 (09:44→21:37)
[2018-08-23] MEDS: VALSARTAN 80 MG TABLET PO SCH ×2 (09:44→21:37)
[2018-08-23] MEDS: ASPIRIN 81 MG TABLET, CHEWABLE PO SCH (09:44)
[2018-08-23] MEDS: INSULIN LISPRO 100 UNIT/ML 3 ML VIAL SUBCUT SCH ×4 (09:44→21:38)
--- NOTE | 2018-08-23 16:44 | PDOC PROGRESS REPORT ---
Subjective Progress Note for:: 08/23/18 Subjective:: This is a 77 year old female with a past medical history of congestive heart failure, coronary artery disease, prior CABG, prior AICD placement, rheumatic heart disease, diabetes and history of recurrent falls who fell at home and sustained a minimally displaced left trochanteric femoral fracture. Patient says she fell "like she used to", that she was trying to ambulate and had recurrence of her "head spinning" like she often has and fell on the floor. Patient underwent nailing of left intertrochanteric hip fracture on 08/18/18 which was uneventful. No acute event overnight. Pain is well-controlled upon encounter. She did work with PT today but was noted to be generally weak and was just able to stand on the side of the bed with significant assistance. She denies chest pain, SOB or palpitations. No recurrence of fever. Patient and son (David) was updated about plan for discharge to inpatient rehab and they are agreeable. 08/23/2018-acute events in the last 24 hours. Patient is afebrile. Patient is still complaining of pain. She is working with PT. Plan is to discharge her to the rehab. Reason For Visit: LEFT HIP FRACTURE, DIABETES Physical Exam Vital Signs: Temp Pulse Resp BP Pulse Ox 99.1 F 73 16 128/51 H 98 08/22/18 22:59 08/22/18 22:59 08/22/18 22:59 08/22/18 22:59 08/22/18 22:59 Intake & Output 08/22/18 08/23/18 08/24/18 06:59 06:59 06:59 Intake Total 1058 624 477 Output Total 930 290 Balance 128 334 477 Weight 53.1 kg 53.1 kg General appearance: PRESENT: no acute distress Head exam: PRESENT: atraumatic Eye exam: PRESENT: PERRLA Mouth exam: PRESENT: moist Neck exam: ABSENT: carotid bruit, JVD, lymphadenopathy, thyromegaly Respiratory exam: PRESENT: clear to auscultation joann. ABSENT: rales, rhonchi, wheezes Cardiovascular exam: PRESENT: RRR. ABSENT: diastolic murmur, rubs, systolic murmur GI/Abdominal exam: PRESENT: normal bowel sounds, soft. ABSENT: distended, guarding, mass, organolmegaly, rebound, tenderness Extremities exam: PRESENT: full ROM. ABSENT: calf tenderness, clubbing, pedal edema Neurological exam: PRESENT: alert, awake, oriented to person, oriented to place, oriented to time, oriented to situation, CN II-XII grossly intact. ABSENT: motor sensory deficit Psychiatric exam: PRESENT: appropriate affect, normal mood. ABSENT: homicidal ideation, suicidal ideation Results Laboratory Results: 08/21/18 06:00 08/21/18 06:00 08/17/18 08/17/18 08/18/18 21:35 21:35 03:27 Creatine Kinase 28 L 29 L CK-MB (CK-2) 0.71 Troponin I 0.028 08/18/18 08/18/18 08/18/18 03:27 09:35 09:35 Creatine Kinase 32 CK-MB (CK-2) 0.74 0.85 Troponin I 0.024 0.028 08/19/18 08/20/18 05:32 05:10 Creatine Kinase CK-MB (CK-2) Troponin I 0.027 0.027 Impressions: Cervical Spine CT 08/17/18 20:05 IMPRESSION: 1. Straightening of the cervical spine which may be secondary to positioning for the examination versus spasm. 2. Multilevel degenerative change without fracture or acute subluxation. 3. Incidentally noted severe narrowing at the level of the craniocervical junction secondary to dense pannus formation and irregularity, hypertrophy of the clivus raising the question of sequela of prior trauma, congenital etiology and/or inflammatory arthropathy. If not previously performed, follow-up evaluation with MRI may be considered. TECHNICAL DOCUMENTATION: Quality ID # 436: Final reports with documentation of one or more dose reduction techniques (e.g., Automated exposure control, adjustment of the mA and/or kV according to patient size, use of iterative reconstruction technique) copyright 2011 [employer]- All Rights Reserved Femur X-Ray 08/17/18 20:05 IMPRESSION: Mildly displaced intratrochanteric left femoral neck fracture. Head CT 08/17/18 20:05 IMPRESSION: 1. No acute intracranial abnormalities. Nonspecific white matter change most likely small vessel ischemic disease, age indeterminate. 2. CT is insensitive for early evaluation of acute stroke. If there is clinical concern for acute ischemia, an MRI may be considered. 3. Incidentally noted severe narrowing at the level of the craniocervical junction secondary to dense callus formation and irregularity, hypertrophy of the clivus raising the question of sequela of prior trauma, congenital etiology and/or inflammatory arthropathy. TECHNICAL DOCUMENTATION: Quality ID # [id number]: Final reports with documentation of one or more dose reduction techniques (e.g., Automated exposure control, adjustment of the mA and/or kV according to patient size, use of iterative reconstruction technique) copyright 2010 [employer]- All Rights Reserved Knee X-Ray 08/17/18 20:05 IMPRESSION: Mildly displaced intratrochanteric left femoral neck fracture. Elbow X-Ray 08/18/18 00:00 IMPRESSION: Degenerative changes involving the elbow joint, with a possible small joint effusion. copyright 2010 [employer]- All Rights Reserved Fluoroscopy 08/18/18 00:00 IMPRESSION: Limited intraoperative images of the left femur fixation obtained to evaluate or progress. Please see operative report for detailed description of procedure. Hip X-Ray 08/18/18 00:00 IMPRESSION: Limited intraoperative images of the left femur fixation obtained to evaluate or progress. Please see operative report for detailed description of procedure. Shoulder X-Ray 08/18/18 00:00 IMPRESSION: No acute fracture or malalignment. Chest X-Ray 08/21/18 06:00 IMPRESSION: Cardiomegaly without acute abnormality of the lungs in AP proje ction. Assessment & Plan - Diagnosis (1) Intertrochanteric fracture of left hip Qualifiers: Encounter type: initial encounter Fracture type: closed Fracture alignment: displaced Qualified Code(s): S72.142A - Displaced intertrochanteric fracture of left femur, initial encounter for closed fracture Is this a current diagnosis for this admission?: Yes Plan: S/P Nailing of left intertrochanteric hip fracture on 08/18/18. Switched DVT prophylaxis to Xarelto per ortho recommendation. Discussed going to inpatient rehab and patient and son are agreeable to plan. Placement process initiated. 08/23/2018-patient is admitted with left intertrochanteric hip fracture on 08/17/2018 status post nailing was done on 08/18/2018. Patient is doing well. She is agreed to go to the rehab. end worker consult was in place. (2) Congestive heart failure Is this a current diagnosis for this admission?: Yes Plan: 08/23/2018-patient has history of congestive heart failure with ejection fraction of less than 25%. She has history of cardiomyopathy. Patient is on Lopressor and valsartan plan is to continue the present management. It is not in fluid overload. (3) Diabetes mellitus Qualifiers: Diabetes mellitus type: type 2 Is this a current diagnosis for this admission?: Yes Plan: 08/23/2018-patient has history of diabetes mellitus on metformin at home which was on hold presently she is on insulin sliding scale latest blood sugar is 219 I started on Lantus 5 units twice a day. Hemoglobin A1c was requested. (4) UTI (urinary tract infection) Is this a current diagnosis for this admission?: Yes Plan: 08/23/2017 patient is in IV Rocephin for UTI blood cultures are negative so far. - Time Time Spent with patient: 15-24 minutes Medications reviewed and adjusted accordingly: Yes Anticipated discharge: SNF
[2018-08-23] MEDS: RIVAROXABAN 10 MG TABLET PO SCH (17:29)
[2018-08-23] MEDS: CEFTRIAXONE 1 GM/D5W RTU 1 GM/50 ML RTUPB IV SCH (17:29)
[2018-08-23] MEDS ORDERED: INSULIN GLARGINE,HUM.REC.ANLOG 1,000 UNIT/10 ML UNIT SUBCUT SCH (18:00)
[2018-08-23] MEDS: INSULIN GLARGINE,HUM.REC.ANLOG 1,000 UNIT/10 ML UNIT SUBCUT SCH (21:38)
[2018-08-24] MEDS: ACETAMINOPHEN 325 MG TABLET PO PRN (00:07)
[2018-08-24] MEDS: INSULIN LISPRO 100 UNIT/ML 3 ML VIAL SUBCUT SCH ×4 (11:37→22:00)
[2018-08-24] MEDS: ASPIRIN 81 MG TABLET, CHEWABLE PO SCH (11:45)
[2018-08-24] MEDS: METOPROLOL SUCCINATE 25 MG TAB.SR.24H PO SCH ×2 (11:45→21:59)
[2018-08-24] MEDS: DOCUSATE SODIUM 100 MG CAPSULE PO SCH ×2 (11:45→18:27)
[2018-08-24] MEDS: INSULIN GLARGINE,HUM.REC.ANLOG 1,000 UNIT/10 ML UNIT SUBCUT SCH ×2 (11:45→18:26)
[2018-08-24] MEDS: MULTIVITAMIN TABLET PO SCH (11:45)
[2018-08-24] MEDS: VALSARTAN 80 MG TABLET PO SCH ×2 (11:51→21:59)
--- NOTE | 2018-08-24 12:48 | PDOC PROGRESS REPORT ---
Subjective Progress Note for:: 08/24/18 Subjective:: This is a 77 year old female with a past medical history of congestive heart failure, coronary artery disease, prior CABG, prior AICD placement, rheumatic heart disease, diabetes and history of recurrent falls who fell at home and sustained a minimally displaced left trochanteric femoral fracture. Patient says she fell "like she used to", that she was trying to ambulate and had recurrence of her "head spinning" like she often has and fell on the floor. Patient underwent nailing of left intertrochanteric hip fracture on 08/18/18 which was uneventful. No acute event overnight. Pain is well-controlled upon encounter. She did work with PT today but was noted to be generally weak and was just able to stand on the side of the bed with significant assistance. She denies chest pain, SOB or palpitations. No recurrence of fever. Patient and son (David) was updated about plan for discharge to inpatient rehab and they are agreeable. 08/23/2018-acute events in the last 24 hours. Patient is afebrile. Patient is still complaining of pain. She is working with PT. Plan is to discharge her to the rehab. 08/24/2018 no acute events in the last 24 hours, patient is afebrile. Comfortably sleeping in the bed. Woke up and calling denies any complaints today. I had a discussion with the bilingual social worker lorri according to her [facility] is offering a bed but they are waiting for the approval from Medicare. Reason For Visit: LEFT HIP FRACTURE, DIABETES Physical Exam Vital Signs: Temp Pulse Resp BP Pulse Ox 98.3 F 78 16 114/43 L 97 08/24/18 11:20 08/24/18 11:20 08/24/18 11:20 08/24/18 11:20 08/24/18 11:20 Intake & Output 08/23/18 08/24/18 08/25/18 06:59 06:59 06:59 Intake Total 624 2781 Output Total 290 Balance 334 2781 Weight 53.1 kg 53.1 kg General appearance: PRESENT: no acute distress Head exam: PRESENT: atraumatic Eye exam: PRESENT: PERRLA Mouth exam: PRESENT: moist Neck exam: ABSENT: carotid bruit, JVD, lymphadenopathy, thyromegaly Respiratory exam: PRESENT: clear to auscultation joann. ABSENT: rales, rhonchi, wheezes Cardiovascular exam: PRESENT: RRR. ABSENT: diastolic murmur, rubs, systolic murmur GI/Abdominal exam: PRESENT: normal bowel sounds, soft. ABSENT: distended, guarding, mass, organolmegaly, rebound, tenderness Extremities exam: PRESENT: full ROM. ABSENT: calf tenderness, clubbing, pedal edema Neurological exam: PRESENT: alert, awake, oriented to person, oriented to place, oriented to time, oriented to situation, CN II-XII grossly intact. ABSENT: motor sensory deficit Psychiatric exam: PRESENT: appropriate affect, normal mood. ABSENT: homicidal ideation, suicidal ideation Results Laboratory Results: 08/21/18 06:00 08/21/18 06:00 08/17/18 08/17/18 08/18/18 21:35 21:35 03:27 Creatine Kinase 28 L 29 L CK-MB (CK-2) 0.71 Troponin I 0.028 08/18/18 08/18/18 08/18/18 03:27 09:35 09:35 Creatine Kinase 32 CK-MB (CK-2) 0.74 0.85 Troponin I 0.024 0.028 08/19/18 08/20/18 05:32 05:10 Creatine Kinase CK-MB (CK-2) Troponin I 0.027 0.027 Impressions: Cervical Spine CT 08/17/18 20:05 IMPRESSION: 1. Straightening of the cervical spine which may be secondary to positioning for the examination versus spasm. 2. Multilevel degenerative change without fracture or acute subluxation. 3. Incidentally noted severe narrowing at the level of the craniocervical junction secondary to dense pannus formation and irregularity, hypertrophy of the clivus raising the question of sequela of prior trauma, congenital etiology and/or inflammatory arthropathy. If not previously performed, follow-up evaluation with MRI may be considered. TECHNICAL DOCUMENTATION: Quality ID # 436: Final reports with documentation of one or more dose reduction techniques (e.g., Automated exposure control, adjustment of the mA and/or kV according to patient size, use of iterative reconstruction technique) copyright 2011 [employer]- All Rights Reserved Femur X-Ray 08/17/18 20:05 IMPRESSION: Mildly displaced intratrochanteric left femoral neck fracture. Head CT 08/17/18 20:05 IMPRESSION: 1. No acute intracranial abnormalities. Nonspecific white matter change most likely small vessel ischemic disease, age indeterminate. 2. CT is insensitive for early evaluation of acute stroke. If there is clinical concern for acute ischemia, an MRI may be considered. 3. Incidentally noted severe narrowing at the level of the craniocervical junction secondary to dense callus formation and irregularity, hypertrophy of the clivus raising the question of sequela of prior trauma, congenital etiology and/or inflammatory arthropathy. TECHNICAL DOCUMENTATION: Quality ID # [id number]: Final reports with documentation of one or more dose reduction techniques (e.g., Automated exposure control, adjustment of the mA and/or kV according to patient size, use of iterative reconstruction technique) copyright 2010 [employer]- All Rights Reserved Knee X-Ray 08/17/18 20:05 IMPRESSION: Mildly displaced intratrochanteric left femoral neck fracture. Elbow X-Ray 08/18/18 00:00 IMPRESSION: Degenerative changes involving the elbow joint, with a possible small joint effusion. copyright 2010 [employer]- All Rights Reserved Fluoroscopy 08/18/18 00:00 IMPRESSION: Limited intraoperative images of the left femur fixation obtained to evaluate or progress. Please see operative report for detailed description of procedure. Hip X-Ray 08/18/18 00:00 IMPRESSION: Limited intraoperative images of the left femur fixation obtained to evaluate or progress. Please see operative report for detailed description of procedure. Shoulder X-Ray 08/18/18 00:00 IMPRESSION: No acute fracture or malalignment. Chest X-Ray 08/21/18 06:00 IMPRESSION: Cardiomegaly without acute abnormality of the lungs in AP projection. Assessment & Plan - Diagnosis (1) Intertrochanteric fracture of left hip Qualifiers: Encounter type: initial encounter Fracture type: closed Fracture alignmen t: displaced Qualified Code(s): S72.142A - Displaced intertrochanteric fracture of left femur, initial encounter for closed fracture Is this a current diagnosis for this admission?: Yes Plan: S/P Nailing of left intertrochanteric hip fracture on 08/18/18. Switched DVT prophylaxis to Xarelto per ortho recommendation. Discussed going to inpatient rehab and patient and son are agreeable to plan. Placement process initiated. 08/23/2018-patient is admitted with left intertrochanteric hip fracture on 019 status post nailing was done on 08/18/2018. Patient is doing well. She is agreed to go to the rehab. pressroom worker consult was in place. 08/24/2018-admitted for left hip fracture status post nailing on 08/18/2018. Physical therapy is working with the patient. Patient agreed to go to the rehab. Waiting for the placement. In the meantime we will continue the present management. (2) Congestive heart failure Is this a current diagnosis for this admission?: Yes Plan: 08/23/2018-patient has history of congestive heart failure with ejection fraction of less than 25%. She has history of cardiomyopathy. Patient is on Lopressor and valsartan plan is to continue the present management. It is not in fluid overload. 08/24/2018-patient has history of congestive heart failure with EF of less than 25%. Patient is on Lopressor, valsartan. Plan is to continue the present management. Patient has chronic left ventricular systolic heart failure. (3) Diabetes mellitus Qualifiers: Diabetes mellitus type: type 2 Is this a current diagnosis for this admission?: Yes Plan: 08/23/2018-patient has history of diabetes mellitus on metformin at home which was on hold presently she is on insulin sliding scale latest blood sugar is 219 I s tarted on Lantus 5 units twice a day. Hemoglobin A1c was requested. 08/24/2018-patient's latest blood sugar is 272. Blood sugars are fluctuating. Patient is on insulin sliding scale and was started on Lantus 5 units twice a day. I am going to increase the Lantus to 10 units twice a day. (4) UTI (urinary tract infection) Is this a current diagnosis for this admission?: Yes Plan: 08/23/2018 patient is in IV Rocephin for UTI blood cultures are negative so far. 08/24/2018-plan is to discontinue antibiotics. - Time Time Spent with patient: 15-24 minutes Medications reviewed and adjusted accordingly: Yes Anticipated discharge: SNF
[2018-08-24] MEDS: OXYCODONE HCL IR 5 MG TABLET PO PRN ×3 (15:04→21:58)
[2018-08-24] MEDS: RIVAROXABAN 10 MG TABLET PO SCH (18:27)
[2018-08-25] MEDS: ONDANSETRON HCL INJ/PF 4 MG/2 ML SDV IV PRN (02:12)
[2018-08-25] MEDS: INSULIN GLARGINE,HUM.REC.ANLOG 1,000 UNIT/10 ML UNIT SUBCUT SCH ×2 (06:32→17:25)
[2018-08-25 06:51] LABS: ABSOLUTE BASOPHILS # (AUTO) 0.1 10^3/uL (0.0-0.2); ABSOLUTE EOSINOPHILS # (AUTO) 0.1 10^3/uL (0.0-0.6); ABSOLUTE LYMPHOCYTES (AUTO) 1.6 10^3/uL (0.5-4.7); ABSOLUTE MONOCYTES (AUTO) 0.7 10^3/uL (0.1-1.4); ABSOLUTE NEUT (AUTO) 6.5 10^3/uL (1.7-8.2); BASOPHILS % (AUTO) 1.2 % (0-2); HEMATOCRIT 31.1 % (36.0-47.0); HEMOGLOBIN 10.6 g/dL (12.0-15.5); LYMPHOCYTES % (AUTO) 18.1 % (13-45); MEAN CORPUSCULAR HEMOGLOBIN 29.9 pg (27.0-33.4); MEAN CORPUSCULAR HGB CONC 34.2 g/dL (32.0-36.0); MEAN CORPUSCULAR VOLUME 87 fl (80-97); MONOCYTES % (AUTO) 7.7 % (3-13); PLATELET COUNT 176 10^3/uL (150-450); RED BLOOD COUNT 3.56 10^6/uL (3.72-5.28); RED CELL DISTRIBUTION WIDTH 13.7 % (11.5-14.0); TOTAL CELLS COUNTED % (AUTO) 100 %
[2018-08-25 07:24] LABS: ALBUMIN 3.4 g/dL (3.5-5.0); ANION GAP 8 (5-19); ASPARTATE AMINO TRANSFERASE 33 U/L (14-36); BLOOD UREA NITROGEN 36 mg/dL (7-20); CALCIUM 9.3 mg/dL (8.4-10.2); CARBON DIOXIDE 28 mmol/L (22-30); CHLORIDE 100 mmol/L (98-107); GLUCOSE 175 mg/dL (75-110); POTASSIUM 5.4 mmol/L (3.6-5.0); SODIUM 135.7 mmol/L (137-145)
[2018-08-25 07:25] LABS: ALANINE AMINOTRANSFERASE 14 U/L (9-52); ALKALINE PHOSPHATASE 69 U/L (38-126); BILIRUBIN,DIRECT 0.4 mg/dL (0.0-0.4); BILIRUBIN,TOTAL 1.1 mg/dL (0.2-1.3); TOTAL PROTEIN 6.4 g/dL (6.3-8.2)
[2018-08-25] MEDS: INSULIN LISPRO 100 UNIT/ML 3 ML VIAL SUBCUT SCH ×4 (08:49→22:13)
[2018-08-25] MEDS: MULTIVITAMIN TABLET PO SCH (08:49)
[2018-08-25] MEDS: DOCUSATE SODIUM 100 MG CAPSULE PO SCH ×2 (08:49→17:25)
[2018-08-25] MEDS: ASPIRIN 81 MG TABLET, CHEWABLE PO SCH (08:49)
[2018-08-25] MEDS: OXYCODONE HCL IR 5 MG TABLET PO PRN ×3 (08:53→22:12)
[2018-08-25] MEDS: VALSARTAN 80 MG TABLET PO SCH ×2 (10:55→22:11)
[2018-08-25] MEDS: METOPROLOL SUCCINATE 25 MG TAB.SR.24H PO SCH ×2 (10:55→22:12)
--- NOTE | 2018-08-25 12:30 | PDOC PROGRESS REPORT ---
Subjective Progress Note for:: 08/25/18 Subjective:: This is a 77 year old female with a past medical history of congestive heart failure, coronary artery disease, prior CABG, prior AICD placement, rheumatic heart disease, diabetes and history of recurrent falls who fell at home and sustained a minimally displaced left trochanteric femoral fracture. Patient says she fell "like she used to", that she was trying to ambulate and had recurrence of her "head spinning" like she often has and fell on the floor. Patient underwent nailing of left intertrochanteric hip fracture on 08/18/18 which was uneventful. No acute event overnight. Pain is well-controlled upon encounter. She did work with PT today but was noted to be generally weak and was just able to stand on the side of the bed with significant assistance. She denies chest pain, SOB or palpitations. No recurrence of fever. Patient and son (David) was updated about plan for discharge to inpatient rehab and they are agreeable. 08/23/2018-acute events in the last 24 hours. Patient is afebrile. Patient is still complaining of pain. She is working with PT. Plan is to discharge her to the rehab. 08/24/2018 no acute events in the last 24 hours, patient is afebrile. Comfortably sleeping in the bed. Woke up and calling denies any complaints today. I had a discussion with the sr. social media & mobile manager emilia according [facility] but they are waiting for the approval from Medicare. 09/04/2018-no acute events in the last 24 hours. Patient is afebrile. Comfortably sleeping in bed. Physical therapy is working with the patient. She is waiting for placement. Reason For Visit: LEFT HIP FRACTURE, DIABETES Physical Exam Vital Signs: Temp Pulse Resp BP Pulse Ox 98.0 F 79 16 103/49 L 98 08/25/18 11:37 08/25/18 11:37 08/25/18 11:37 08/25/18 11:37 08/25/18 11:37 Intake & Output 08/24/18 08/25/18 08/26/18 06:59 06:59 06:59 Intake Total 2781 1212 Balance 2781 1212 Weight 53.1 kg 53.1 kg General appearance: PRESENT: no acute distress Head exam: PRESENT: atraumatic Eye exam: PRESENT: PERRLA Mouth exam: PRESENT: moist Neck exam: ABSENT: carotid bruit, JVD, lymphadenopathy, thyromegaly Respiratory exam: PRESENT: clear to auscultation joann. ABSENT: rales, rhonchi, wheezes Cardiovascular exam: PRESENT: RRR. ABSENT: diastolic murmur, rubs, systolic murmur GI/Abdominal exam: PRESENT: normal bowel sounds, soft. ABSENT: distended, guarding, mass, organolmegaly, rebound, tenderness Extremities exam: PRESENT: full ROM. ABSENT: calf tenderness, clubbing, pedal edema Neurological exam: PRESENT: alert, awake, oriented to person, oriented to place, oriented to time, oriented to situation, CN II-XII grossly intact. ABSENT: motor sensory deficit Psychiatric exam: PRESENT: appropriate affect, normal mood. ABSENT: homicidal ideation, suicidal ideation Results Laboratory Results: 08/25/18 05:53 08/25/18 05:53 08/25/18 08/25/18 05:53 05:53 WBC 9.0 RBC 3.56 L Hgb 10.6 L Hct 31.1 L MCV 87 MCH 29.9 MCHC 34.2 RDW 13.7 Plt Count 176 Seg Neutrophils % 72.0 Lymphocytes % 18.1 Monocytes % 7.7 Eosinophils % 1.0 Basophils % 1.2 Absolute Neutrophils 6.5 Absolute Lymphocytes 1.6 Absolute Monocytes 0.7 Absolute Eosinophils 0.1 Absolute Basophils 0.1 Sodium 135.7 L Potassium 5.4 H Chloride 100 Carbon Dioxide 28 Anion Gap 8 BUN 36 H Creatinine 0.97 Est GFR ( Amer) > 60 Est GFR (Non-Af Amer) 56 L Glucose 175 H Calcium 9.3 Magnesium 2.6 H Total Bilirubin 1.1 AST 33 ALT 14 Alkaline Phosphatase 69 Total Protein 6.4 Albumin 3.4 L 08/17/18 08/17/18 08/18/18 21:35 21:35 03:27 Creatine Kinase 28 L 29 L CK-MB (CK-2) 0.71 Troponin I 0.028 08/18/18 08/18/18 08/18/18 03:27 09:35 09:35 Creatine Kinase 32 CK-MB (CK-2) 0.74 0.85 Troponin I 0.024 0.028 08/19/18 08/20/18 05:32 05:10 Creatine Kinase CK-MB (CK-2) Troponin I 0.027 0.027 Impressions: Cervical Spine CT 08/17/18 20:05 IMPRESSION: 1. Straightening of the cervical spine which may be secondary to positioning for the examination versus spasm. 2. Multilevel degenerative change without fracture or acute subluxation. 3. Incidentally noted severe narrowing at the level of the craniocervical junction secondary to dense pannus formation and irregularity, hypertrophy of the clivus raising the question of sequela of prior trauma, congenital etiology and/or inflammatory arthropathy. If not previously performed, follow-up evaluation with MRI may be considered. TECHNICAL DOCUMENTATION: Quality ID # 436: Final reports with documentation of one or more dose reduction techniques (e.g., Automated exposure control, adjustment of the mA and/or kV according to patient size, use of iterative reconstruction technique) copyright 2010 [employer]- All Rights Reserved Femur X-Ray 08/17/18 20:05 IMPRESSION: Mildly displaced intratrochanteric left femoral neck fracture. Head CT 08/17/18 20:05 IMPRESSION: 1. No acute intracranial abnormalities. Nonspecific white matter change most likely small vessel ischemic disease, age indeterminate. 2. CT is insensitive for early evaluation of acute stroke. If there is clinical concern for acute ischemia, an MRI may be considered. 3. Incidentally noted severe narrowing at the level of the craniocervical junction secondary to dense callus formation and irregularity, hypertrophy of the clivus raising the question of sequela of prior trauma, congenital etiology and/or inflammatory arthropathy. TECHNICAL DOCUMENTATION: Quality ID # [id number]: Final reports with documentation of one or more dose reduction techniques (e.g., Automated exposure control, adjustment of the mA and/or kV according to patient size, use of iterative reconstruction technique) copyright 2010 [employer]- All Rights Reserved Knee X-Ray 08/17/18 20:05 IMPRESSION: Mildly displaced intratrochanteric left femoral neck fracture. Elbow X-Ray 08/18/18 00:00 IMPRESSION: Degenerative changes involving the elbow joint, with a possible small joint effusion. copyright 2010 [employer]- All Rights Reserved Fluoroscopy 08/18/18 00:00 IMPRESSION: Limited intraoperative images of the left femur fixation obtained to evaluate or progress. Please see operative report for detailed description of procedure. Hip X-Ray 08/18/18 00:00 IMPRESSION: Limited intraoperative images of the left femur fixation obtained to evaluate or progress. Please see operative report for detailed description of procedure. Shoulder X-Ray 08/18/18 00:00 IMPRESSION: No acute fracture or malalignment. Chest X-Ray 08/21/18 06:00 IMPRESSION: Cardiomegaly without acute abnormality of the lungs in AP projection. Assessment & Plan - Diagnosis (1) Intertrochanteric fracture of left hip Qualifiers: Encounter type: initial encounter Fracture type: closed Fracture alignment: displaced Qualified Code(s): S72.142A - Displaced intertrochanteric fracture of left femur, initial encounter for closed fracture Is this a current diagnosis for this admission?: Yes Plan: S/P Nailing of left intertrochanteric hip fracture on 08/18/18. Switched DVT prophylaxis to Xarelto per ortho recommendation. Discussed going to inpatient rehab and patient and son are agreeable to plan. Placement process initiated. 08/23/2018-patient is admitted with left intertrochanteric hip fracture on 08/17/2018 status post nailing was done on 08/18/2018. Patient is doing well. She is agreed to go to the rehab. police worker consult was in place. 08/24/2018-admitted for left hip fracture status post nailing on 08/18/2018. Physical therapy is working with the patient. Patient agreed to go to the rehab. Waiting for the placement. In the meantime we will continue the present management. 08/25/2018-patient admitted with left hip fracture status post nailing on 08/18/2018-waiting for custodial placement. Plan is to continue the present m anagement. (2) Congestive heart failure Is this a current diagnosis for this admission?: Yes Plan: 08/23/2018-patient has history of congestive heart failure with ejection fraction of less than 25%. She has history of cardiomyopathy. Patient is on Lopressor and valsartan plan is to continue the present management. It is not in fluid overload. 08/24/2018-patient has history of congestive heart failure with EF of less than 25%. Patient is on Lopressor, valsartan. Plan is to continue the present management. Patient has chronic left ventricular systolic heart failure. 08/25/2018-on examination patient is not in fluid overload. Patient is presently on Lopressor /valsartan. She has left ventricular systolic failure with EF of less than 25%. (3) Diabetes mellitus Qualifiers: Diabetes mellitus type: type 2 Is this a current diagnosis for this admission?: Yes Plan: 08/23/2018-patient has history of diabetes mellitus on metformin at home which was on hold presently she is on insulin sliding scale latest blood sugar is 219 I started on Lantus 5 units twice a day. Hemoglobin A1c was requested. 08/24/2018-patient's latest blood sugar is 272. Blood sugars are fluctuating. Patient is on insulin sliding scale and was started on Lantus 5 units twice a day. I am going to increase the Lantus to 10 units twice a day. 08/25/2018-today's blood sugar is 149 relatively controlled. Patient is on insulin sliding scale before meals and at bedtime and Lantus 10 units twice a day. Plan is to continue the present management. Patient's hemoglobin A1c is 6.4. (4) UTI (urinary tract infection) Is this a current diagnosis for this admission?: Yes Plan: 08/23/2018 patient is in IV Rocephin for UTI blood cultures are negative so far. 08/24/2018-plan is to discontinue antibiotics. - Time Time Spent with patient: 15-24 minutes Medications reviewed and adjusted accordingly: Yes Anticipated discharge: SNF
[2018-08-25] MEDS: RIVAROXABAN 10 MG TABLET PO SCH (17:25)
[2018-08-25] MEDS ORDERED: MAGNESIUM CITRATE 296 ML BOTTLE PO ONE (18:00)
--- NOTE | 2018-08-25 18:40 | PDOC PROGRESS REPORT ---
Subjective Progress Note for:: 08/25/18 Subjective:: Patient resting comfortably in bed having dinner. No acute issues with the left hip. Participating with physical therapy. Reason For Visit: LEFT HIP FRACTURE, DIABETES Physical Exam Vital Signs: Temp Pulse Resp BP Pulse Ox 37.0 C 84 16 108/52 L 97 08/25/18 16:00 08/25/18 16:00 08/25/18 16:00 08/25/18 16:00 08/25/18 16:00 Intake & Output 08/24/18 08/25/18 08/26/18 06:59 06:59 06:59 Intake Total 2781 1212 857 Balance 2781 1212 857 Weight 53.1 kg 53.1 kg Adult Front & Back Image: 1 - Dressings changed and are clean dry and intact. [place] and incision are dry clean and intact. Neurovascular intact distally with soft calf and negative Homans sign Results Laboratory Results: 08/25/18 05:53 08/25/18 05:53 08/25/18 08/25/18 05:53 05:53 WBC 9.0 RBC 3.56 L Hgb 10.6 L Hct 31.1 L MCV 87 MCH 29.9 MCHC 34.2 RDW 13.7 Plt Count 176 Seg Neutrophils % 72.0 Lymphocytes % 18.1 Monocytes % 7.7 Eosinophils % 1.0 Basophils % 1.2 Absolute Neutrophils 6.5 Absolute Lymphocytes 1.6 Absolute Monocytes 0.7 Absolute Eosinophils 0.1 Absolute Basophils 0.1 Sodium 135.7 L Potassium 5.4 H Chloride 100 Carbon Dioxide 28 Anion Gap 8 BUN 36 H Creatinine 0.97 Est GFR ( Amer) > 60 Est GFR (Non-Af Amer) 56 L Glucose 175 H Calcium 9.3 Magnesium 2.6 H Total Bilirubin 1.1 AST 33 ALT 14 Alkaline Phosphatase 69 Total Protein 6.4 Albumin 3.4 L 08/20/18 18:10 Blood Blood Culture - Final NO GROWTH IN 5 DAYS 08/20/18 18:00 Blood Blood Culture - Final NO GROWTH IN 5 DAYS 08/17/18 08/17/18 08/18/18 21:35 21:35 03:27 Creatine Kinase 28 L 29 L CK-MB (CK-2) 0.71 Troponin I 0.028 08/18/18 08/18/18 08/18/18 03:27 09:35 09:35 Creatine Kinase 32 CK-MB (CK-2) 0.74 0.85 Troponin I 0.024 0.028 08/19/18 08/20/18 05:32 05:10 Creatine Kinase CK-MB (CK-2) Troponin I 0.027 0.027 Impressions: Cervical Spine CT 08/17/18 20:05 IMPRESSION: 1. Straightening of the cervical spine which may be secondary to positioning for the examination versus spasm. 2. Multilevel degenerative change without fracture or acute subluxation. 3. Incidentally noted severe narrowing at the level of the craniocervical junction secondary to dense pannus formation and irregularity, hypertrophy of the clivus raising the question of sequela of prior trauma, congenital etiology and/or inflammatory arthropathy. If not previously performed, follow-up evaluation with MRI may be considered. TECHNICAL DOCUMENTATION: Quality ID # [id number]: Final reports with documentation of one or more dose reduction techniques (e.g., Automated exposure control, adjustment of the mA and/or kV according to patient size, use of iterative reconstruction technique) copyright 2010 [employer]- All Rights Reserved Femur X-Ray 08/17/18 20:05 IMPRESSION: Mildly displaced intratrochanteric left femoral neck fracture. Head CT 08/17/18 20:05 IMPRESSION: 1. No acute intracranial abnormalities. Nonspecific white matter change most likely small vessel ischemic disease, age indeterminate. 2. CT is insensitive for early evaluation of acute stroke. If there is clinical concern for acute ischemia, an MRI may be considered. 3. Incidentally noted severe narrowing at the level of the craniocervical junction secondary to dense callus formation and irregularity, hypertrophy of the clivus raising the question of sequela of prior trauma, congenital etiology and/or inflammatory arthropathy. TECHNICAL DOCUMENTATION: Quality ID # [id number]: Final reports with documentation of one or more dose reduction techniques (e.g., Automated exposure control, adjustment of the mA and/or kV according to patient size, use of iterative reconstruction technique) copyright 2011 [employer]- All Rights Reserved Knee X-Ray 08/17/18 20:05 IMPRESSION: Mildly displaced intratrochanteric left femoral neck fracture. Elbow X-Ray 08/18/18 00:00 IMPRESSION: Degenerative changes involving the elbow joint, with a possible small joint effusion. copyright 2011 [employer]- All Rights Reserved Fluoroscopy 08/18/18 00:00 IMPRESSION: Limited intraoperative images of the left femur fixation obtained to evaluate or progress. Please see operative report for detailed description of procedure. Hip X-Ray 08/18/18 00:00 IMPRESSION: Limited intraoperative images of the left femur fixation obtained to evaluate or progress. Please see operative report for detailed description of procedure. Shoulder X-Ray 08/18/18 00:00 IMPRESSION: No acute fracture or malalignment. Chest X-Ray 08/21/18 06:00 IMPRESSION: Cardiomegaly without acute abnormality of the lungs in AP projection. Assessment & Plan - Diagnosis (1) Intertrochanteric fracture of left hip Qualifiers: Encounter type: initial encounter Fracture type: closed Fracture alignment: displaced Qualified Code(s): S72.142A - Displaced intertrochanteric fracture of left femur, initial encounter for closed fracture Is this a current diagnosis for this admission?: Yes - Plan Summary Plan Summary: Patient is 77 female POD # 7 from Left hip nailing. Continue physical therapy Continue pain control Continue DVT prophylaxis Awaiting halfway facility placement
--- NOTE | 2018-08-25 21:54 | RADIOLOGY REPORT (SQ) ---
EXAM DESCRIPTION: XR ABDOMEN 1 VIEW (KUB) COMPLETED DATE/TME: 08/25/2018 00:00 CLINICAL HISTORY: 77 years, Female, constipation/ab pain Findings: No free intraperitoneal air. Moderate to large amount stool in the colon. No significant dilated loops of bowel. No abnormal mass effect. Status post left hip arthroplasty. IMPRESSION: Findings consistent with constipation.
[2018-08-25] MEDS: MAGNESIUM HYDROXIDE SUSP 30 ML UDCUP PO PRN (22:11)
[2018-08-26] MEDS: ONDANSETRON HCL INJ/PF 4 MG/2 ML SDV IV PRN ×2 (01:02→11:39)
[2018-08-26] MEDS: OXYCODONE HCL IR 5 MG TABLET PO PRN ×2 (02:30→22:30)
[2018-08-26 06:21] LABS: ABSOLUTE BASOPHILS # (AUTO) 0.1 10^3/uL (0.0-0.2); ABSOLUTE EOSINOPHILS # (AUTO) 0.1 10^3/uL (0.0-0.6); ABSOLUTE LYMPHOCYTES (AUTO) 1.4 10^3/uL (0.5-4.7); ABSOLUTE MONOCYTES (AUTO) 0.7 10^3/uL (0.1-1.4); ABSOLUTE NEUT (AUTO) 7.6 10^3/uL (1.7-8.2); BASOPHILS % (AUTO) 1.3 % (0-2); EOSINOPHILS % (AUTO) 0.9 % (0-6); HEMATOCRIT 30.9 % (36.0-47.0); HEMOGLOBIN 10.4 g/dL (12.0-15.5); LYMPHOCYTES % (AUTO) 14.1 % (13-45); MEAN CORPUSCULAR HEMOGLOBIN 29.7 pg (27.0-33.4); MEAN CORPUSCULAR HGB CONC 33.7 g/dL (32.0-36.0); MEAN CORPUSCULAR VOLUME 88 fl (80-97); MONOCYTES % (AUTO) 7.1 % (3-13); PLATELET COUNT 325 10^3/uL (150-450); RED BLOOD COUNT 3.51 10^6/uL (3.72-5.28); RED CELL DISTRIBUTION WIDTH 13.6 % (11.5-14.0); SEGMENTED NEUTROPHILS % (AUTO) 76.6 % (42-78); TOTAL CELLS COUNTED % (AUTO) 100 %; WHITE BLOOD COUNT 9.9 10^3/uL (4.0-10.5)
[2018-08-26 06:46] LABS: ALANINE AMINOTRANSFERASE 21 U/L (9-52); ALBUMIN 3.4 g/dL (3.5-5.0); ALKALINE PHOSPHATASE 71 U/L (38-126); ANION GAP 10 (5-19); ASPARTATE AMINO TRANSFERASE 16 U/L (14-36); BILIRUBIN,DIRECT 0.3 mg/dL (0.0-0.4); BLOOD UREA NITROGEN 48 mg/dL (7-20); CALCIUM 9.2 mg/dL (8.4-10.2); CARBON DIOXIDE 28 mmol/L (22-30); CHLORIDE 98 mmol/L (98-107); GLUCOSE 161 mg/dL (75-110); POTASSIUM 5.6 mmol/L (3.6-5.0); SODIUM 135.6 mmol/L (137-145)
[2018-08-26] MEDS: INSULIN GLARGINE,HUM.REC.ANLOG 1,000 UNIT/10 ML UNIT SUBCUT SCH ×2 (06:49→17:17)
[2018-08-26] MEDS: VALSARTAN 80 MG TABLET PO SCH ×2 (09:51→22:08)
[2018-08-26] MEDS: INSULIN LISPRO 100 UNIT/ML 3 ML VIAL SUBCUT SCH ×4 (09:51→22:43)
[2018-08-26] MEDS: METOPROLOL SUCCINATE 25 MG TAB.SR.24H PO SCH ×2 (09:52→22:09)
[2018-08-26] MEDS: DOCUSATE SODIUM 100 MG CAPSULE PO SCH ×2 (09:53→17:17)
[2018-08-26] MEDS: ASPIRIN 81 MG TABLET, CHEWABLE PO SCH (09:53)
[2018-08-26] MEDS: MULTIVITAMIN TABLET PO SCH (09:53)
[2018-08-26] MEDS ORDERED: SODIUM POLYSTYRENE SULFONATE 15 GM/60 ML PO ONE (11:01)
[2018-08-26] MEDS ORDERED: DEXTROSE 50%-WATER 25 GM/50 ML DISP.SYRIN IV ONE (11:01)
[2018-08-26] MEDS ORDERED: INSULIN REG, HUMAN 100 UNIT/ML 3 ML VIAL (PYX) IV ONE (11:02)
--- NOTE | 2018-08-26 11:46 | PDOC PROGRESS REPORT ---
Subjective Progress Note for:: 08/26/18 Subjective:: This is a 77 year old female with a past medical history of congestive heart failure, coronary artery disease, prior CABG, prior AICD placement, rheumatic heart disease, diabetes and history of recurrent falls who fell at home and sustained a minimally displaced left trochanteric femoral fracture. Patient says she fell "like she used to", that she was trying to ambulate and had recurrence of her "head spinning" like she often has and fell on the floor. Patient underwent nailing of left intertrochanteric hip fracture on 08/18/18 which was uneventful. No acute event overnight. Pain is well-controlled upon encounter. She did work with PT today but was noted to be generally weak and was just able to stand on the side of the bed with significant assistance. She denies chest pain, SOB or palpitations. No recurrence of fever. Patient and son (David) was updated about plan for discharge to inpatient rehab and they are agreeable. 08/23/2018-acute events in the last 24 hours. Patient is afebrile. Patient is still complaining of pain. She is working with PT. Plan is to discharge her to the rehab. 08/24/2018 no acute events in the last 24 hours, patient is afebrile. Comfortably sleeping in the bed. Woke up and calling denies any complaints today. I had a discussion with the social insurance adviser emilia according to her [facility] is offering a bed but they are waiting for the approval from Medicare. 08/25/2018-no acute events in the last 24 hours. Patient is afebrile. Comfortably sleeping in bed. Physical therapy is working with the patient. She is waiting for placement. 08/26/2018-no acute events in the last 24 hours. Patient is afebrile. Patient is able to participate in the physical therapy. Potassium levels came back up 5.6 and creatinine went up to 1.39 from 0.97. Going to recheck the labs again. Patient waiting for a prison placement. Reason For Visit: LEFT HIP FRACTURE, DIABETES Physical Exam Vital Signs: Temp Pulse Resp BP Pulse Ox 98.4 F 74 16 108/56 L 96 08/26/18 07:48 08/26/18 07:48 08/26/18 07:48 08/26/18 07:48 08/26/18 07:48 Intake & Output 08/25/18 08/26/18 08/27/18 06:59 06:59 06:59 Intake Total 1212 857 350 Balance 1212 857 350 Weight 53.1 kg 67.3 kg General appearance: PRESENT: no acute distress Head exam: PRESENT: atraumatic Eye exam: PRESENT: PERRLA Mouth exam: PRESENT: dry mucosa Neck exam: ABSENT: carotid bruit, JVD, lymphadenopathy, thyromegaly Respiratory exam: PRESENT: clear to auscultation joann. ABSENT: rales, rhonchi, wheezes Cardiovascular exam: PRESENT: RRR. ABSENT: diastolic murmur, rubs, systolic murmur GI/Abdominal exam: PRESENT: normal bowel sounds, soft. ABSENT: distended, guarding, mass, organolmegaly, rebound, tenderness Extremities exam: PRESENT: full ROM. ABSENT: calf tenderness, clubbing, pedal edema Neurological exam: PRESENT: alert, awake, oriented to person, oriented to place, oriented to time, oriented to situation, CN II-XII grossly intact. ABSENT: motor sensory deficit Psychiatric exam: PRESENT: appropriate affect, normal mood. ABSENT: homicidal ideation, suicidal ideation Results Laboratory Results: 08/26/18 05:33 08/26/18 05:33 08/26/18 08/26/18 05:33 05:33 WBC 9.9 RBC 3.51 L Hgb 10.4 L Hct 30.9 L MCV 88 MCH 29.7 MCHC 33.7 RDW 13.6 Plt Count 325 Seg Neutrophils % 76.6 Lymphocytes % 14.1 Monocytes % 7.1 Eosinophils % 0.9 Basophils % 1.3 Absolute Neutrophils 7.6 Absolute Lymphocytes 1.4 Absolute Monocytes 0.7 Absolute Eosinophils 0.1 Absolute Basophils 0.1 Sodium 135.6 L Potassium 5.6 H Chloride 98 Carbon Dioxide 28 Anion Gap 10 BUN 48 H Creatinine 1.34 H Est GFR ( Amer) 47 L Est GFR (Non-Af Amer) 38 L Glucose 161 H Calcium 9.2 Magnesium 3.7 H D Total Bilirubin 1.0 AST 16 ALT 21 Alkaline Phosphatase 71 Total Protein 6.0 L Albumin 3.4 L 08/20/18 18:10 Blood Blood Culture - Final NO GROWTH IN 5 DAYS 08/20/18 18:00 Blood Blood Culture - Final NO GROWTH IN 5 DAYS 08/17/18 08/17/18 08/18/18 21:35 21:35 03:27 Creatine Kinase 28 L 29 L CK-MB (CK-2) 0.71 Troponin I 0.028 NT-Pro-B Natriuret Pep 08/18/18 08/18/18 08/18/18 03:27 09:35 09:35 Creatine Kinase 32 CK-MB (CK-2) 0.74 0.85 Troponin I 0.024 0.028 NT-Pro-B Natriuret Pep 08/19/18 08/20/18 08/26/18 05:32 05:10 05:33 Creatine Kinase CK-MB (CK-2) Troponin I 0.027 0.027 NT-Pro-B Natriuret Pep 96386 H Impressions: Cervical Spine CT 08/17/18 20:05 IMPRESSION: 1. Straightening of the cervical spine which may be secondary to positioning for the examination versus spasm. 2. Multilevel degenerative change without fracture or acute subluxation. 3. Incidentally noted severe narrowing at the level of the craniocervical junction secondary to dense pannus formation and irregularity, hypertrophy of the clivus raising the question of sequela of prior trauma, congenital etiology and/or inflammatory arthropathy. If not previously performed, follow-up evaluation with MRI may be considered. TECHNICAL DOCUMENTATION: Quality ID # 436: Final reports with documentation of one or more dose reduction techniques (e.g., Automated exposure control, adjustment of the mA and/or kV according to patient size, use of iterative reconstruction technique) copyright 2011 [employer]- All Rights Reserved Femur X-Ray 08/17/18 20:05 IMPRESSION: Mildly displaced intratrochanteric left femoral neck fracture. Head CT 08/17/18 20:05 IMPRESSION: 1. No acute intracranial abnormalities. Nonspecific white matter change most likely small vessel ischemic disease, age indeterminate. 2. CT is insensitive for early evaluation of acute stroke. If there is clinical concern for acute ischemia, an MRI may be considered. 3. Incidentally noted severe narrowing at the level of the craniocervical junction secondary to dense callus formation and irregularity, hypertrophy of the clivus raising the question of sequela of prior trauma, congenital etiology and/or inflammatory arthropathy. TECHNICAL DOCUMENTATION: Quality ID # [id number]: Final reports with documentation of one or more dose reduction techniques (e.g., Automated exposure control, adjustment of the mA and/or kV according to patient size, use of iterative reconstruction technique) copyright 2010 [employer]- All Rights Reserved Knee X-Ray 08/17/18 20:05 IMPRESSION: Mildly displaced intratrochanteric left femoral neck fracture. Elbow X-Ray 08/18/18 00:00 IMPRESSION: Degenerative changes involving the elbow joint, with a possible small joint effusion. copyright 2010 [employer]- All Rights Reserved Fluoroscopy 08/18/18 00:00 IMPRESSION: Limited intraoperative images of the left femur fixation obtained to evaluate or progress. Please see operative report for detailed description of procedure. Hip X-Ray 08/18/18 00:00 IMPRESSION: Limited intraoperative images of the left femur fixation obtained to evaluate or progress. Please see operative report for detailed description of procedure. Shoulder X-Ray 08/18/18 00:00 IMPRESSION: No acute fracture or malalignment. Chest X-Ray 08/21/18 06:00 IMPRESSION: Cardiomegaly without acute abnormality of the lungs in AP projection. KUB X-Ray 08/25/18 00:00 IMPRESSION: Findings consistent with constipation. Assessment & Plan - Diagnosis (1) Intertrochanteric fracture of left hip Qualifiers: Encounter type: initial encounter Fracture type: closed Fracture alignment: displaced Qualified Code(s): S72.142A - Displaced intertrochanteric fracture of left femur, initial encounter for closed fracture Is this a current diagnosis for this admission?: Yes Plan: S/P Nailing of left intertrochanteric hip fracture on 08/18/18. Switched DVT prophylaxis to Xarelto per ortho recommendation. Discussed going to inpatient rehab and patient and son are agreeable to plan. Placement process initiated. 08/23/2018-patient is admitted with left intertrochanteric hip fracture on 08/17/2018 status post nailing was done on 08/18/2018. Patient is doing well. She is agreed to go to the rehab. concrete worker consult was in place. 08/24/2018-admitted for left hip fracture status post nailing on 08/18/2018. Physic al therapy is working with the patient. Patient agreed to go to the rehab. Waiting for the placement. In the meantime we will continue the present management. 08/25/2018-patient admitted with left hip fracture status post nailing on 08/18/2018-waiting for prison placement. Plan is to continue the present management. 08/26/2018-patient was admitted with left hip fracture status post nailing on 08/24/2018. Waiting for the prison placement. In the meantime will continue PT. (2) Congestive heart failure Is this a current diagnosis for this admission?: Yes Plan: 08/23/2018-patient has history of congestive heart failure with ejection fraction of less than 25%. She has history of cardiomyopathy. Patient is on Lopressor and valsartan plan is to continue the present management. It is not in fluid overload. 08/24/2018-patient has history of congestive heart failure with EF of less than 25%. Patient is on Lopressor, valsartan. Plan is to continue the present management. Patient has chronic left ventricular systolic heart failure. 08/25/2018-on examination patient is not in fluid overload. Patient is presently on Lopressor /valsartan. She has left ventricular systolic failure with EF of less than 25%. 08/26/2018-BNP came back as 10,500. Patient is a Lopressor/valsartan. Patient has left ventricular failure with EF of 25%. I am going to start her on Lasix 20 mg p.o. twice daily. (3) Diabetes mellitus Qualifiers: Diabetes mellitus type: type 2 Is this a current diagnosis for this admission?: Yes Plan: 08/23/2018-patient has history of diabetes mellitus on metformin at home which was on hold presently she is on insulin sliding scale latest blood sugar is 219 I started on Lantus 5 units twice a day. Hemoglobin A1c was requested. 08/24/2018-patient's latest blood sugar is 272. Blood sugars are fluctuating. Patient is on insulin sliding scale and was started on Lantus 5 units twice a day. I am going to increase the Lantus to 10 units twice a day. 08/25/2018-today's blood sugar is 149 relatively controlled. Patient is on insulin sliding scale before meals and at bedtime and Lantus 10 units twice a day. Plan is to continue the present management. Patient's hemoglobin A1c is 6.4. 08/26/2018-blood sugar today is 177-patient is on insulin sliding scale before meals and at bedtime along with Lantus 10 units twice a day. Plan is to continue the present management. (4) UTI (urinary tract infection) Is this a current diagnosis for this admission?: Yes Plan: 08/23/2018 patient is in IV Rocephin for UTI blood cultures are negative so far. 08/24/2018-plan is to discontinue antibiotics. (5) Acute kidney injury Is this a current diagnosis for this admission?: Yes Plan: Patient creatinine is 0.97 yesterday jumped to 1.38 today. AK I may be sec to prerenal causes. I am going to repeat the labs again tomorrow. - Time Time Spent with patient: 15-24 minutes Medications reviewed and adjusted accordingly: Yes Anticipated discharge: SNF
[2018-08-26] MEDS: FUROSEMIDE 20 MG TABLET PO SCH ×2 (14:54→17:16)
[2018-08-26] MEDS: RIVAROXABAN 10 MG TABLET PO SCH (17:16)
[2018-08-26] MEDS: ACETAMINOPHEN 325 MG TABLET PO PRN (22:39)
[2018-08-27] MEDS: OXYCODONE HCL IR 5 MG TABLET PO PRN ×3 (05:20→20:06)
[2018-08-27 06:07] LABS: ABSOLUTE BASOPHILS # (AUTO) 0.1 10^3/uL (0.0-0.2); ABSOLUTE EOSINOPHILS # (AUTO) 0.1 10^3/uL (0.0-0.6); ABSOLUTE LYMPHOCYTES (AUTO) 1.9 10^3/uL (0.5-4.7); ABSOLUTE MONOCYTES (AUTO) 0.7 10^3/uL (0.1-1.4); ABSOLUTE NEUT (AUTO) 7.8 10^3/uL (1.7-8.2); BASOPHILS % (AUTO) 0.7 % (0-2); EOSINOPHILS % (AUTO) 1.3 % (0-6); HEMOGLOBIN 9.6 g/dL (12.0-15.5); LYMPHOCYTES % (AUTO) 17.9 % (13-45); MEAN CORPUSCULAR HEMOGLOBIN 30.1 pg (27.0-33.4); MEAN CORPUSCULAR HGB CONC 34.1 g/dL (32.0-36.0); MEAN CORPUSCULAR VOLUME 88 fl (80-97); MONOCYTES % (AUTO) 6.8 % (3-13); PLATELET COUNT 298 10^3/uL (150-450); RED BLOOD COUNT 3.18 10^6/uL (3.72-5.28); RED CELL DISTRIBUTION WIDTH 13.5 % (11.5-14.0); SEGMENTED NEUTROPHILS % (AUTO) 73.3 % (42-78); TOTAL CELLS COUNTED % (AUTO) 100 %; WHITE BLOOD COUNT 10.6 10^3/uL (4.0-10.5)
[2018-08-27 06:38] LABS: ALANINE AMINOTRANSFERASE 19 U/L (9-52); ALKALINE PHOSPHATASE 67 U/L (38-126); ANION GAP 9 (5-19); ASPARTATE AMINO TRANSFERASE 14 U/L (14-36); BILIRUBIN,DIRECT 0.2 mg/dL (0.0-0.4); BLOOD UREA NITROGEN 55 mg/dL (7-20); CALCIUM 8.5 mg/dL (8.4-10.2); CARBON DIOXIDE 31 mmol/L (22-30); CHLORIDE 92 mmol/L (98-107); GLUCOSE 108 mg/dL (75-110); POTASSIUM 4.2 mmol/L (3.6-5.0); SODIUM 132.4 mmol/L (137-145); TOTAL PROTEIN 5.4 g/dL (6.3-8.2)
[2018-08-27] MEDS: INSULIN GLARGINE,HUM.REC.ANLOG 1,000 UNIT/10 ML UNIT SUBCUT SCH ×2 (06:52→18:55)
[2018-08-27] MEDS: INSULIN LISPRO 100 UNIT/ML 3 ML VIAL SUBCUT SCH ×4 (09:54→21:39)
[2018-08-27] MEDS: METOPROLOL SUCCINATE 25 MG TAB.SR.24H PO SCH ×2 (09:55→21:42)
[2018-08-27] MEDS: ASPIRIN 81 MG TABLET, CHEWABLE PO SCH (09:59)
[2018-08-27] MEDS: DOCUSATE SODIUM 100 MG CAPSULE PO SCH ×2 (09:59→18:29)
[2018-08-27] MEDS: MULTIVITAMIN TABLET PO SCH (09:59)
--- NOTE | 2018-08-27 10:58 | PDOC PROGRESS REPORT ---
Subjective Progress Note for:: 08/27/18 Subjective:: This is a 77 year old female with a past medical history of congestive heart failure, coronary artery disease, prior CABG, prior AICD placement, rheumatic heart disease, diabetes and history of recurrent falls who fell at home and sustained a minimally displaced left trochanteric femoral fracture. Patient says she fell "like she used to", that she was trying to ambulate and had recurrence of her "head spinning" like she often has and fell on the floor. Patient underwent nailing of left intertrochanteric hip fracture on 08/18/18 which was uneventful. No acute event overnight. Pain is well-controlled upon encounter. She did work with PT today but was noted to be generally weak and was just able to stand on the side of the bed with significant assistance. She denies chest pain, SOB or palpitations. No recurrence of fever. Patient and son (David) was updated about plan for discharge to inpatient rehab and they are agreeable. 08/23/2018-acute events in the last 24 hours. Patient is afebrile. Patient is still complaining of pain. She is working with PT. Plan is to discharge her to the rehab. 08/24/2018 no acute events in the last 24 hours, patient is afebrile. Comfortably sleeping in the bed. Woke up and calling denies any complaints today. I had a discussion with the foster care social worker emilia according to her [facility] is offering a bed but they are waiting for the approval from Medicare. 08/25/2018-no acute events in the last 24 hours. Patient is afebrile. Comfortably sleeping in bed. Physical therapy is working with the patient. She is waiting for placement. 08/26/2018-no acute events in the last 24 hours. Patient is afebrile. Patient is able to participate in the physical therapy. Potassium levels came back up 5.6 and creatinine went up to 1.39 from 0.97. Going to recheck the labs again. Patient waiting for a senior care placement. 08/27/2018 patient became hypotensive this morning blood pressure is 95/42. And creatinine also went up from 1.34-2.06 today. Patient is comfortably in the bed she states her appetite is not good and she is not eating much. Reason For Visit: LEFT HIP FRACTURE, DIABETES Physical Exam Vital Signs: Temp Pulse Resp BP Pulse Ox 98.3 F 71 18 95/42 L 94 08/27/18 07:39 08/27/18 07:39 08/27/18 07:39 08/27/18 07:39 08/27/18 07:39 Intake & Output 08/26/18 08/27/18 08/28/18 06:59 06:59 06:59 Intake Total 857 1232 Output Total 300 Balance 857 932 Weight 52.5 kg General appearance: PRESENT: no acute distress Head exam: PRESENT: atraumatic Eye exam: PRESENT: PERRLA Mouth exam: PRESENT: dry mucosa Neck exam: ABSENT: carotid bruit, JVD, lymphadenopathy, thyromegaly Respiratory exam: PRESENT: clear to auscultation joann. ABSENT: rales, rhonchi, wheezes Cardiovascular exam: PRESENT: RRR. ABSENT: diastolic murmur, rubs, systolic murmur GI/Abdominal exam: PRESENT: normal bowel sounds, soft. ABSENT: distended, guarding, mass, organolmegaly, rebound, tenderness Extremities exam: PRESENT: full ROM. ABSENT: calf tenderness, clubbing, pedal edema Neurological exam: PRESENT: alert, awake, oriented to person, oriented to place, oriented to time, oriented to situation, CN II-XII grossly intact. ABSENT: motor sensory deficit Psychiatric exam: PRESENT: appropriate affect, normal mood. ABSENT: homicidal ideation, suicidal ideation Results Laboratory Results: 08/27/18 05:40 08/27/18 05:40 08/26/18 08/26/18 08/27/18 17:13 19:00 05:40 WBC 10.6 H RBC 3.18 L Hgb 9.6 L Hct 28.0 L MCV 88 MCH 30.1 MCHC 34.1 RDW 13.5 Plt Count 298 Seg Neutrophils % 73.3 Lymphocytes % 17.9 Monocytes % 6.8 Eosinophils % 1.3 Basophils % 0.7 Absolute Neutrophils 7.8 Absolute Lymphocytes 1.9 Absolute Monocytes 0.7 Absolute Eosinophils 0.1 Absolute Basophils 0.1 Sodium Potassium Cancelled 5.1 H Chloride Carbon Dioxide Anion Gap BUN Creatinine Est GFR ( Amer) Est GFR (Non-Af Amer) Glucose Calcium Magnesium Total Bilirubin AST ALT Alkaline Phosphatase Total Protein Albumin 08/27/18 05:40 WBC RBC Hgb Hct MCV MCH MCHC RDW Plt Count Seg Neutrophils % Lymphocytes % Monocytes % Eosinophils % Basophils % Absolute Neutrophils Absolute Lymphocytes Absolute Monocytes Absolute Eosinophils Absolute Basophils Sodium 132.4 L Potassium 4.2 Chloride 92 L Carbon Dioxide 31 H Anion Gap 9 BUN 55 H Creatinine 2.06 H Est GFR ( Amer) 28 L Est GFR (Non-Af Amer) 23 L Glucose 108 Calcium 8.5 Magnesium 3.7 H Total Bilirubin 1.0 AST 14 ALT 19 Alkaline Phosphatase 67 Total Protein 5.4 L Albumin 3.0 L 08/17/18 08/17/18 08/18/18 21:35 21:35 03:27 Creatine Kinase 28 L 29 L CK-MB (CK-2) 0.71 Troponin I 0.028 NT-Pro-B Natriuret Pep 08/18/18 08/18/18 08/18/18 03:27 09:35 09:35 Creatine Kinase 32 CK-MB (CK-2) 0.74 0.85 Troponin I 0.024 0.028 NT-Pro-B Natriuret Pep 08/19/18 08/20/18 08/26/18 05:32 05:10 05:33 Creatine Kinase CK-MB (CK-2) Troponin I 0.027 0.027 NT-Pro-B Natriuret Pep 22217 H Impressions: Cervical Spine CT 08/17/18 20:05 IMPRESSION: 1. Straightening of the cervical spine which may be secondary to positioning for the examination versus spasm. 2. Multilevel degenerative change without fracture or acute subluxation. 3. Incidentally noted severe narrowing at the level of the craniocervical junction secondary to dense pannus formation and irregularity, hypertrophy of the clivus raising the question of sequela of prior trauma, congenital etiology and/or inflammatory arthropathy. If not previously performed, follow-up evaluation with MRI may be considered. TECHNICAL DOCUMENTATION: Quality ID # 436: Final reports with documentation of one or more dose reduction techniques (e.g., Automated exposure control, adjustment of the mA and/or kV according to patient size, use of iterative reconstruction technique) copyright 2011 [employer]- All Rights Reserved Femur X-Ray 08/17/18 20:05 IMPRESSION: Mildly displaced intratrochanteric left femoral neck fracture. Head CT 08/17/18 20:05 IMPRESSION: 1. No acute intracranial abnormalities. Nonspecific white matter change most likely small vessel ischemic disease, age indeterminate. 2. CT is insensitive for early evaluation of acute stroke. If there is clinical concern for acute ischemia, an MRI may be considered. 3. Incidentally noted severe narrowing at the level of the craniocervical junction secondary to dense callus formation and irregularity, hypertrophy of the clivus raising the question of sequela of prior trauma, congenital etiology and/or inflammatory arthropathy. TECHNICAL DOCUMENTATION: Quality ID # [id number]: Final reports with documentation of one or more dose reduction techniques (e.g., Automated exposure control, adjustment of the mA and/or kV according to patient size, use of iterative reconstruction technique) copyright 2010 [employer]- All Rights Reserved Knee X-Ray 08/17/18 20:05 IMPRESSION: Mildly displaced intratrochanteric left femoral neck fracture. Elbow X-Ray 08/18/18 00:00 IMPRESSION: Degenerative changes involving the elbow joint, with a possible small joint effusion. copyright 2010 [employer]- All Rights Reserved Fluoroscopy 08/18/18 00:00 IMPRESSION: Limited intraoperative images of the left femur fixation obtained to evaluate or progress. Please see operative report for detailed description of procedure. Hip X-Ray 08/18/18 00:00 IMPRESSION: Limited intraoperative images of the left femur fixation obtained to evaluate or progress. Please see operative report for detailed description of procedure. Shoulder X-Ray 08/18/18 00:00 IMPRESSION: No acute fracture or malalignment. Chest X-Ray 08/21/18 06:00 IMPRESSION: Cardiomegaly without acute abnormality of the lungs in AP projection. KUB X-Ray 08/25/18 00:00 IMPRESSION: Findings consistent with constipation. Assessment & Plan - Diagnosis (1) Intertrochanteric fracture of left hip Qualifiers: Encounter type: initial encounter Fracture type: closed Fracture alignment: displaced Qualified Code(s): S72.142A - Displaced intertrochanteric fracture of left femur, initial encounter for closed fracture Is this a current diagnosis for this admission?: Yes Plan: S/P Nailing of left intertrochanteric hip fracture on 08/18/18. Switched DVT prop hylaxis to Xarelto per ortho recommendation. Discussed going to inpatient rehab and patient and son are agreeable to plan. Placement process initiated. 08/23/2018-patient is admitted with left intertrochanteric hip fracture on 08/17/2018 status post nailing was done on 08/18/2018. Patient is doing well. She is agreed to go to the rehab. textile worker consult was in place. 08/24/2018-admitted for left hip fracture status post nailing on 08/18/2018. Physical therapy is working with the patient. Patient agreed to go to the rehab. Waiting for the placement. In the meantime we will continue the present management. 08/25/2018-patient admitted with left hip fracture status post nailing on 08/18/2018-waiting for senior care placement. Plan is to continue the present management. 08/26/2018-patient was admitted with left hip fracture status post nailing on 08/24/2018. Waiting for the senior care placement. In the meantime will continue PT. 08/27/2018-patient was admitted with left hip fracture status post nailing in 08/24/2018-patient has a bed available at the senior care but she is hypotensive today with a blood pressure of 95/42 and creatinine jumped to 2.06 I am going to start her on IV fluids normal saline at 75 cc/h renal ultrasound was requested and consultation with nephrology was requested. (2) Congestive heart failure Is this a current diagnosis for this admission?: Yes Plan: 08/23/2018-patient has history of congestive heart failure with ejection fraction of less than 25%. She has history of cardiomyopathy. Patient is on Lopressor and valsartan plan is to continue the present management. It is not in fluid overload. 08/24/2018-patient has history of congestive heart failure with EF of less than 25%. Patient is on Lopressor, valsartan. Plan is to continue the present management. Patient has chronic left ventricular systolic heart failure. 08/25/2018-on examination patient is not in fluid overload. Patient is presently on Lopressor /valsartan. She has left ventricular systolic failure with EF of less than 25%. 08/26/2018-BNP came back as 10,500. Patient is a Lopressor/valsartan. Patient has left ventricular failure with EF of 25%. I am going to start her on Lasix 20 mg p.o. twice daily. 08/27/2017-patient blood pressure is 95/42 and creatinine was 2.06 I stopped valsartan today and also Lasix was discontinued I am going to give gentle fluid at 75 cc/h for the next 24 hours and recheck the labs tomorrow. (3) Diabetes mellitus Qualifiers: Diabetes mellitus type: type 2 Is this a current diagnosis for this admission?: Yes Plan: 08/23/2018-patient has history of diabetes mellitus on metformin at home which was on hold presently she is on insulin sliding scale latest blood sugar is 219 I started on Lantus 5 units twice a day. Hemoglobin A1c was requested. 08/24/2018-patient's latest blood sugar is 272. Blood sugars are fluctuating. Patient is on insulin sliding scale and was started on Lantus 5 units twice a day. I am going to increase the Lantus to 10 units twice a day. 08/25/2018-today's blood sugar is 149 relatively controlled. Patient is on insulin sliding scale before meals and at bedtime and Lantus 10 units twice a day. Plan is to continue the present management. Patient's hemoglobin A1c is 6.4. 08/26/2018-blood sugar today is 177-patient is on insulin sliding scale before meals and at bedtime along with Lantus 10 units twice a day. Plan is to continue the present management. 08/27/2018-patient's latest blood sugar is 135. Plan is to continue the present management blood sugars are well controlled. (4) UTI (urinary tract infection) Is this a current diagnosis for this admission?: Yes Plan: 08/23/2018 patient is in IV Rocephin for UTI blood cultures are negative so far. 08/24/2018-plan is to discontinue antibiotics. 08/27/2018 patient is not on antibiotics anymore T-max is 98.3. (5) Acute kidney injury Is this a current diagnosis for this admission?: Yes Plan: Patient creatinine is 0.97 yesterday jumped to 1.38 today. AK I may be sec to prerenal causes. I am going to repeat the labs again tomorrow. 08/27/2018-creatinine jumped to 2.06 from 1.34 yesterday. Stopped Lasix and valsartan. Started on gentle IV fluids 75 cc/h, renal ultrasound and nephrology consult was requested. - Time Time Spent with patient: 15-24 minutes Medications reviewed and adjusted accordingly: Yes Anticipated discharge: SNF
[2018-08-27] MEDS: NORMAL SALINE 1000 ML 1,000 ML IV PRN (12:43)
--- NOTE | 2018-08-27 18:11 | RADIOLOGY REPORT (SQ) ---
EXAM DESCRIPTION: U/S RETROPERITON (RENAL/AORTA) COMPLETED DATE/TIME: 08/27/2018 4:21 pm REASON FOR STUDY: creatinine 2.0 COMPARISON: None. TECHNIQUE: Dynamic and static grayscale images acquired of the kidneys and bladder and recorded on P ACS. Additional selected color Doppler and spectral images recorded. LIMITATIONS: Suboptimal exam due to overlying bowel gas. FINDINGS: RIGHT KIDNEY: Normal size. Normal echogenicity. Mild renal cortical atrophy. No discrete masses. No hydronephrosis. No calcifications. LEFT KIDNEY: Normal size. Normal echogenicity. Mild renal cortical atrophy. No discrete masses. No hydronephrosis. No calcifications. BLADDER: No masses. OTHER FINDINGS: Echogenic foci within a generously distended gallbladder. IMPRESSION: 1. No hydronephrosis. 2. Mild bilateral renal cortical atrophy. 3. Incidental note of a generously distended gallbladder with sludge. TECHNICAL DOCUMENTATION: JOB ID: [id number] [employer]- All Rights Reserved Reading location - IP/workstation name: [email or web address]
[2018-08-27] MEDS: RIVAROXABAN 10 MG TABLET PO SCH (18:29)
[2018-08-27] MEDS: ONDANSETRON HCL INJ/PF 4 MG/2 ML SDV IV PRN (21:42)
[2018-08-28] MEDS: ACETAMINOPHEN 325 MG TABLET PO PRN ×2 (00:25→04:18)
[2018-08-28 06:38] LABS: ABSOLUTE BASOPHILS # (AUTO) 0.1 10^3/uL (0.0-0.2); ABSOLUTE EOSINOPHILS # (AUTO) 0.2 10^3/uL (0.0-0.6); ABSOLUTE LYMPHOCYTES (AUTO) 1.6 10^3/uL (0.5-4.7); ABSOLUTE MONOCYTES (AUTO) 0.7 10^3/uL (0.1-1.4); ABSOLUTE NEUT (AUTO) 6.9 10^3/uL (1.7-8.2); BASOPHILS % (AUTO) 0.5 % (0-2); EOSINOPHILS % (AUTO) 2.4 % (0-6); HEMATOCRIT 23.9 % (36.0-47.0); HEMOGLOBIN 8.2 g/dL (12.0-15.5); LYMPHOCYTES % (AUTO) 17.4 % (13-45); MEAN CORPUSCULAR HEMOGLOBIN 29.8 pg (27.0-33.4); MEAN CORPUSCULAR HGB CONC 34.3 g/dL (32.0-36.0); MEAN CORPUSCULAR VOLUME 87 fl (80-97); PLATELET COUNT 288 10^3/uL (150-450); RED BLOOD COUNT 2.75 10^6/uL (3.72-5.28); RED CELL DISTRIBUTION WIDTH 13.6 % (11.5-14.0); SEGMENTED NEUTROPHILS % (AUTO) 72.7 % (42-78); TOTAL CELLS COUNTED % (AUTO) 100 %; WHITE BLOOD COUNT 9.5 10^3/uL (4.0-10.5)
[2018-08-28 07:04] LABS: ALANINE AMINOTRANSFERASE 15 U/L (9-52); ALBUMIN 2.6 g/dL (3.5-5.0); ALKALINE PHOSPHATASE 62 U/L (38-126); ANION GAP 8 (5-19); ASPARTATE AMINO TRANSFERASE 13 U/L (14-36); BILIRUBIN,DIRECT 0.3 mg/dL (0.0-0.4); BILIRUBIN,TOTAL 1.1 mg/dL (0.2-1.3); BLOOD UREA NITROGEN 57 mg/dL (7-20); CALCIUM 7.6 mg/dL (8.4-10.2); CARBON DIOXIDE 30 mmol/L (22-30); CHLORIDE 89 mmol/L (98-107); GLUCOSE 103 mg/dL (75-110); POTASSIUM 3.8 mmol/L (3.6-5.0); SODIUM 126.9 mmol/L (137-145)
[2018-08-28] MEDS: INSULIN GLARGINE,HUM.REC.ANLOG 1,000 UNIT/10 ML UNIT SUBCUT SCH ×2 (08:27→17:24)
[2018-08-28] MEDS: INSULIN LISPRO 100 UNIT/ML 3 ML VIAL SUBCUT SCH ×4 (08:27→22:36)
[2018-08-28] MEDS ORDERED: NORMAL SALINE 250 ML IV PRN ×2 (09:26)
[2018-08-28] MEDS: ASPIRIN 81 MG TABLET, CHEWABLE PO SCH (09:35)
[2018-08-28] MEDS: MULTIVITAMIN TABLET PO SCH (09:35)
[2018-08-28] MEDS: OXYCODONE HCL IR 5 MG TABLET PO PRN ×2 (09:36→17:34)
[2018-08-28] MEDS: DOCUSATE SODIUM 100 MG CAPSULE PO SCH ×2 (09:37→17:23)
[2018-08-28] MEDS: METOPROLOL SUCCINATE 25 MG TAB.SR.24H PO SCH ×2 (10:11→22:35)
--- NOTE | 2018-08-28 10:13 | PDOC PROGRESS REPORT ---
Subjective Progress Note for:: 08/28/18 Subjective:: This is a 77 year old female with a past medical history of congestive heart failure, coronary artery disease, prior CABG, prior AICD placement, rheumatic heart disease, diabetes and history of recurrent falls who fell at home and sustained a minimally displaced left trochanteric femoral fracture. Patient says she fell "like she used to", that she was trying to ambulate and had recurrence of her "head spinning" like she often has and fell on the floor. Patient underwent nailing of left intertrochanteric hip fracture on 08/18/18 which was uneventful. No acute event overnight. Pain is well-controlled upon encounter. She did work with PT today but was noted to be generally weak and was just able to stand on the side of the bed with significant assistance. She denies chest pain, SOB or palpitations. No recurrence of fever. Patient and son (David) was updated about plan for discharge to inpatient rehab and they are agreeable. 08/23/2018-acute events in the last 24 hours. Patient is afebrile. Patient is still complaining of pain. She is working with PT. Plan is to discharge her to the rehab. 08/24/2018 no acute events in the last 24 hours, patient is afebrile. Comfortably sleeping in the bed. Woke up and calling denies any complaints today. I had a discussion with the forensic social worker emilia according to her [facility] is offering a bed but they are waiting for the approval from Medicare. 08/25/2018-no acute events in the last 24 hours. Patient is afebrile. Comfortably sleeping in bed. Physical therapy is working with the patient. She is waiting for placement. 08/26/2018-no acute events in the last 24 hours. Patient is afebrile. Patient is able to participate in the physical therapy. Potassium levels came back up 5.6 and creatinine went up to 1.39 from 0.97. Going to recheck the labs again. Patient waiting for a assisted placement. 08/27/2018 patient became hypotensive this morning blood pressure is 95/42. And creatinine also went up from 1.34-2.06 today. Patient is comfortably in the bed she states her appetite is not good and she is not eating much. 08/28/2018-patient is still hypotensive blood pressure is 98/37 requested the nurse to do the manual reading. She was started on normal saline 75 cc/h cre atinine was slightly improved to 1.94 but her sodium is dropped from 132-127 I placed a consult for nephrology yesterday but unfortunately there is no nephrology coverage over the weekend. Patient is afebrile no acute events in the last 24 hours. Reason For Visit: LEFT HIP FRACTURE, DIABETES Physical Exam Vital Signs: Temp Pulse Resp BP Pulse Ox 98.0 F 64 17 98/37 L 97 08/27/18 22:59 08/27/18 22:59 08/27/18 22:59 08/27/18 22:59 08/27/18 22:59 Intake & Output 08/27/18 08/28/18 08/29/18 06:59 06:59 06:59 Intake Total 1232 2097 Output Total 300 1200 Balance 932 897 Weight 52.5 kg 69.1 kg General appearance: PRESENT: other - Comfortably sleeping in the bed not in distress. Head exam: PRESENT: atraumatic Eye exam: PRESENT: PERRLA Mouth exam: PRESENT: dry mucosa Neck exam: ABSENT: carotid bruit, JVD, lymphadenopathy, thyromegaly Respiratory exam: PRESENT: clear to auscultation joann. ABSENT: rales, rhonchi, wheezes Cardiovascular exam: PRESENT: RRR. ABSENT: diastolic murmur, rubs, systolic murmur GI/Abdominal exam: PRESENT: normal bowel sounds, soft. ABSENT: distended, guarding, mass, organolmegaly, rebound, tenderness Extremities exam: PRESENT: full ROM. ABSENT: calf tenderness, clubbing, pedal edema Neurological exam: PRESENT: alert, awake, oriented to person, oriented to place, oriented to time, oriented to situation, CN II-XII grossly intact. ABSENT: motor sensory deficit Psychiatric exam: PRESENT: appropriate affect, normal mood. ABSENT: homicidal ideation, suicidal ideation Results Laboratory Results: 08/28/18 05:34 08/28/18 05:34 08/28/18 08/28/18 05:34 05:34 WBC 9.5 RBC 2.75 L Hgb 8.2 L Hct 23.9 L MCV 87 MCH 29.8 MCHC 34.3 RDW 13.6 Plt Count 288 Seg Neutrophils % 72.7 Lymphocytes % 17.4 Monocytes % 7.0 Eosinophils % 2.4 Basophils % 0.5 Absolute Neutrophils 6.9 Absolute Lymphocytes 1.6 Absolute Monocytes 0.7 Absolute Eosinophils 0.2 Absolute Basophils 0.1 Sodium 126.9 L Potassium 3.8 Chloride 89 L Carbon Dioxide 30 Anion Gap 8 BUN 57 H Creatinine 1.94 H Est GFR ( Amer) 30 L Est GFR (Non-Af Amer) 25 L Glucose 103 Calcium 7.6 L Magnesium 3.1 H Total Bilirubin 1.1 AST 13 L ALT 15 Alkaline Phosphatase 62 Total Protein 5.0 L Albumin 2.6 L 08/17/18 08/17/18 08/18/18 21:35 21:35 03:27 Creatine Kinase 28 L 29 L CK-MB (CK-2) 0.71 Troponin I 0.028 NT-Pro-B Natriuret Pep 08/18/18 08/18/18 08/18/18 03:27 09:35 09:35 Creatine Kinase 32 CK-MB (CK-2) 0.74 0.85 Troponin I 0.024 0.028 NT-Pro-B Natriuret Pep 08/19/18 08/20/18 08/26/18 05:32 05:10 05:33 Creatine Kinase CK-MB (CK-2) Troponin I 0.027 0.027 NT-Pro-B Natriuret Pep 14838 H Impressions: Cervical Spine CT 08/17/18 20:05 IMPRESSION: 1. Straightening of the cervical spine which may be secondary to positioning for the examination versus spasm. 2. Multilevel degenerative change without fracture or acute subluxation. 3. Incidentally noted severe narrowing at the level of the craniocervical junction secondary to dense pannus formation and irregularity, hypertrophy of the clivus raising the question of sequela of prior trauma, congenital etiology and/or inflammatory arthropathy. If not previously performed, follow-up evaluation with MRI may be considered. TECHNICAL DOCUMENTATION: Quality ID # 436: Final reports with documentation of one or more dose reduction techniques (e.g., Automated exposure control, adjustment of the mA and/or kV according to patient size, use of iterative reconstruction technique) copyright 2011 [employer]- All Rights Reserved Femur X-Ray 08/17/18 20:05 IMPRESSION: Mildly displaced intratrochanteric left femoral neck fracture. Head CT 08/17/18 20:05 IMPRESSION: 1. No acute intracranial abnormalities. Nonspecific white matter change most likely small vessel ischemic disease, age indeterminate. 2. CT is insensitive for early evaluation of acute stroke. If there is clinical concern for acute ischemia, an MRI may be considered. 3. Incidentally noted severe narrowing at the level of the craniocervical junction secondary to dense callus formation and irregularity, hypertrophy of the clivus raising the question of sequela of prior trauma, congenital etiology and/or inflammatory arthropathy. TECHNICAL DOCUMENTATION: Quality ID # 436: Final reports with documentation of one or more dose reduction techniques (e.g., Automated exposure control, adjustment of the mA and/or kV according to patient size, use of iterative reconstruction technique) copyright 2010 [employer]- All Rights Reserved Knee X-Ray 08/17/18 20:05 IMPRESSION: Mildly displaced intratrochanteric left femoral neck fracture. Elbow X-Ray 08/18/18 00:00 IMPRESSION: Degenerative changes involving the elbow joint, with a possible small joint effusion. copyright 2011 [employer]- All Rights Reserved Fluoroscopy 08/18/18 00:00 IMPRESSION: Limited intraoperative images of the left femur fixation obtained to evaluate or progress. Please see operative report for detailed description of procedure. Hip X-Ray 08/18/18 00:00 IMPRESSION: Limited intraoperative images of the left femur fixation obtained to evaluate or progress. Please see operative report for detailed description of procedure. Shoulder X-Ray 08/18/18 00:00 IMPRESSION: No acute fracture or malalignment. Chest X-Ray 08/21/18 06:00 IMPRESSION: Cardiomegaly without acute abnormality of the lungs in AP projection. KUB X-Ray 08/25/18 00:00 IMPRESSION: Findings consistent with constipation. Renal Ultrasound 08/27/18 00:00 IMPRESSION: 1. No hydronephrosis. 2. Mild bilateral renal cortical atrophy. 3. Incidental note of a generously distended gallbladder with sludge. Assessment & Plan - Diagnosis (1) Intertrochanteric fracture of left hip Qualifiers: Encounter type: initial encounter Fracture type: closed Fracture alignment: displaced Qualified Code(s): S72.142A - Displaced intertrochanteric fracture of left femur, initial encounter for closed fracture Is this a current diagnosis for this admission?: Yes Plan: S/P Nailing of left intertrochanteric hip fracture on 08/18/18. Switched DVT prophylaxis to Xarelto per ortho recommendation. Discussed going to inpatient rehab and patient and son are agreeable to plan. Placement process initiated. 08/23/2018-patient is admitted with left intertrochanteric hip fracture on 08/17/2018 status post nailing was done on 08/18/2018. Patient is doing well. She is agreed to go to the rehab. kiln worker consult was in place. 08/24/2018-admitted for left hip fracture status post nailing on 08/18/2018. Physical therapy is working with the patient. Patient agreed to go to the rehab. Waiting for the placement. In the meantime we will continue the present management. 08/25/2018-patient admitted with left hip fracture status post nailing on 08/18/2018-waiting for assisted placement. Plan is to continue the present management. 08/26/2018-patient was admitted with left hip fracture status post nailing on 08/24/2018. Waiting for the assisted placement. In the meantime will continue PT. 08/27/2018-patient was admitted with left hip fracture status post nailing in 08/24/2018-patient has a bed available at the assisted but she is hypotensive today with a blood pressure of 95/42 and creatinine jumped to 2.06 I am going to start her on IV fluids normal saline at 75 cc/h renal ultrasound was requested and consultation with nephrology was requested. 08/28/2018-patient has a left hip fracture status post nailing on 08/24/2018 waiting for assisted placement. (2) Congestive heart failure Is this a current diagnosis for this admission?: Yes Plan: 08/23/2018-patient has history of congestive heart failure with ejection fraction of less than 25%. She has history of cardiomyopathy. Patient is on Lopressor and valsartan plan is to continue the present management. It is not in fluid overload. 08/24/2018-patient has history of congestive heart failure with EF of less than 25%. Patient is on Lopressor, valsartan. Plan is to continue the present management. Patient has chronic left ventricular systolic heart failure. 08/25/2018-on examination patient is not in fluid overload. Patient is presently on Lopressor /valsartan. She has left ventricular systolic failure with EF of less than 25%. 08/26/2018-BNP came back as 10,500. Patient is a Lopressor/valsartan. Patient has left ventricular failure with EF of 25%. I am going to start her on Lasix 20 mg p.o. twice daily. 08/27/2018-patient blood pressure is 95/42 and creatinine was 2.06 I stopped valsartan today and also Lasix was discontinued I am going to give gentle fluid at 75 cc/h for the next 24 hours and recheck the labs tomorrow. 08/28/2018-patient blood pressure is still 98/37. On IV fluids normal saline at 75 cc/h was started on and Lasix were discontinued yesterday she has history of congestive heart failure with left ventricular systolic failure with EF of less than 25%. (3) Diabetes mellitus Qualifiers: Diabetes mellitus type: type 2 Is this a current diagnosis for this admission?: Yes Plan: 08/23/2018-patient has history of diabetes mellitus on metformin at home which was on hold presently she is on insulin sliding scale latest blood sugar is 219 I started on Lantus 5 units twice a day. Hemoglobin A1c was requested. 08/24/2018-patient's latest blood sugar is 272. Blood sugars are fluctuating. Patient is on insulin sliding scale and was started on Lantus 5 units twice a day. I am going to increase the Lantus to 10 units twice a day. 08/25/2018-today's blood sugar is 149 relatively controlled. Patient is on insulin sliding scale before meals and at bedtime and Lantus 10 units twice a day. Plan is to continue the present management. Patient's hemoglobin A1c is 6.4. 08/26/2018-blood sugar today is 177-patient is on insulin sliding scale before meals and at bedtime along with Lantus 10 units twice a day. Plan is to continue the present management. 08/27/2018-patient's latest blood sugar is 135. Plan is to continue the present management blood sugars are well controlled. 08/28/2018 blood sugar is 103 plan is to continue the present management. Patient is on insulin sliding scale before meals and at bedtime and also on Lantus 10 units twice a day. Hemoglobin A1c 6.4. (4) UTI (urinary tract infection) Is this a current diagnosis for this admission?: Yes Plan: 08/23/2018 patient is in IV Rocephin for UTI blood cultures are negative so far. 08/24/2018-plan is to discontinue antibiotics. 08/27/2018 patient is not on antibiotics anymore T-max is 98.3. (5) Acute kidney injury Is this a current diagnosis for this admission?: Yes Plan: Patient creatinine is 0.97 yesterday jumped to 1.38 today. AK I may be sec to prerenal causes. I am going to repeat the labs again tomorrow. 08/27/2018-creatinine jumped to 2.06 from 1.34 yesterday. Stopped Lasix and valsartan. Started on gentle IV fluids 75 cc/h, renal ultrasound and nephrology consult was requested. 08/28/2018 with IV fluids normal saline at 75 cc/h creatinine was slightly improved from 2.06-1.94. She has a positive balance of 900 mL in the last 24 hours. renal Ultrasound shows no hydronephrosis. (6) Hyponatremia Is this a current diagnosis for this admission?: Yes Plan: 08/28/2018 patient's sodium level is 132 yesterday it dropped to 127 with IV fluids normal at 75 cc/h I am going to repeat the labs again this afternoon and also tomorrow nephrology consult was requested. - Time Time Spent with patient: 15-24 minutes Medications reviewed and adjusted accordingly: Yes Anticipated discharge: SNF
[2018-08-28 14:52] LABS: ALANINE AMINOTRANSFERASE 16 U/L (9-52); ALBUMIN 2.5 g/dL (3.5-5.0); ALKALINE PHOSPHATASE 61 U/L (38-126); ANION GAP 7 (5-19); ASPARTATE AMINO TRANSFERASE 14 U/L (14-36); BILIRUBIN,DIRECT 0.2 mg/dL (0.0-0.4); BILIRUBIN,TOTAL 1.5 mg/dL (0.2-1.3); BLOOD UREA NITROGEN 53 mg/dL (7-20); CALCIUM 7.9 mg/dL (8.4-10.2); CARBON DIOXIDE 29 mmol/L (22-30); CHLORIDE 93 mmol/L (98-107); GLUCOSE 151 mg/dL (75-110); POTASSIUM 3.8 mmol/L (3.6-5.0); SODIUM 128.6 mmol/L (137-145); TOTAL PROTEIN 4.9 g/dL (6.3-8.2)
[2018-08-28] MEDS: NORMAL SALINE 1000 ML 1,000 ML IV PRN ×2 (16:47→16:48)
[2018-08-28 17:00] LABS: HEMATOCRIT 25.9 % (36.0-47.0); MEAN CORPUSCULAR HEMOGLOBIN 30.1 pg (27.0-33.4); MEAN CORPUSCULAR HGB CONC 34.8 g/dL (32.0-36.0); MEAN CORPUSCULAR VOLUME 87 fl (80-97); PLATELET COUNT 258 10^3/uL (150-450); RED BLOOD COUNT 2.99 10^6/uL (3.72-5.28); RED CELL DISTRIBUTION WIDTH 13.6 % (11.5-14.0); WHITE BLOOD COUNT 8.3 10^3/uL (4.0-10.5)
[2018-08-28] MEDS: RIVAROXABAN 10 MG TABLET PO SCH (17:23)
[2018-08-29] MEDS: OXYCODONE HCL IR 5 MG TABLET PO PRN (01:18)
[2018-08-29 04:50] LABS: ABSOLUTE BASOPHILS # (AUTO) 0.1 10^3/uL (0.0-0.2); ABSOLUTE EOSINOPHILS # (AUTO) 0.3 10^3/uL (0.0-0.6); ABSOLUTE LYMPHOCYTES (AUTO) 1.5 10^3/uL (0.5-4.7); ABSOLUTE MONOCYTES (AUTO) 0.5 10^3/uL (0.1-1.4); ABSOLUTE NEUT (AUTO) 5.4 10^3/uL (1.7-8.2); BASOPHILS % (AUTO) 1.5 % (0-2); EOSINOPHILS % (AUTO) 3.7 % (0-6); LYMPHOCYTES % (AUTO) 18.8 % (13-45); MEAN CORPUSCULAR HEMOGLOBIN 29.8 pg (27.0-33.4); MEAN CORPUSCULAR HGB CONC 34.5 g/dL (32.0-36.0); MEAN CORPUSCULAR VOLUME 86 fl (80-97); MONOCYTES % (AUTO) 6.7 % (3-13); PLATELET COUNT 274 10^3/uL (150-450); RED BLOOD COUNT 3.01 10^6/uL (3.72-5.28); RED CELL DISTRIBUTION WIDTH 13.7 % (11.5-14.0); SEGMENTED NEUTROPHILS % (AUTO) 69.3 % (42-78); TOTAL CELLS COUNTED % (AUTO) 100 %; WHITE BLOOD COUNT 7.8 10^3/uL (4.0-10.5)
[2018-08-29 05:34] LABS: ALANINE AMINOTRANSFERASE 22 U/L (9-52); ALBUMIN 2.6 g/dL (3.5-5.0); ALKALINE PHOSPHATASE 62 U/L (38-126); ANION GAP 9 (5-19); ASPARTATE AMINO TRANSFERASE 14 U/L (14-36); BILIRUBIN,DIRECT 0.4 mg/dL (0.0-0.4); BILIRUBIN,TOTAL 1.4 mg/dL (0.2-1.3); BLOOD UREA NITROGEN 48 mg/dL (7-20); CARBON DIOXIDE 27 mmol/L (22-30); CHLORIDE 97 mmol/L (98-107); GLUCOSE 82 mg/dL (75-110); POTASSIUM 3.9 mmol/L (3.6-5.0); SODIUM 132.6 mmol/L (137-145)
--- NOTE | 2018-08-29 06:13 | PDOC CONSULTATION ---
Consultation Consult Date: 08/29/18 Consult reason:: Distended gallbladder History of Present Illness Admission Date/PCP: 08/17/18 22:20 YAMILKA EPSTEIN MD History of Present Illness: VALE SOTO is a 77 year old female seen at the request of the hospitalist service. This patient recently underwent hip fracture repair. She has been undergoing workup for poor renal function. She has a significant cardiac histor y. Patient underwent a renal ultrasound several days ago and was found to have a distended gallbladder. I have been consulted for management of this. The patient reports that she has occasional nausea and vomiting. She denies any abdominal pain. She cannot easily identify what foods make her nauseated. Currently she denies chest pain, shortness of breath, headache, fevers, chills, abdominal pain, melena, hematochezia, blurry vision, sore throat. Past Medical History Cardiac Medical History: Reports: Coronary Artery Disease, Myocardial Infarction, Other - Rheumatic heart disease Endocrine Medical History: Reports: Diabetes Mellitus Type 2 Psychiatric Medical History: Denies: Depression Past Surgical History Past Surgical History: Reports: Pacemaker Social History Lives with: Alone Smoking Status: Never Smoker Frequency of Alcohol Use: None Hx Recreational Drug Use: No Drugs: None Hx Prescription Drug Abuse: No - Advance Directive Resuscitation Status: Full Code Family History Family History: Hypertension Parental Family History Reviewed: Yes Children Family History Reviewed: Yes Sibling(s) Family History Reviewed.: Yes Medication/Allergy Home Medications: Metformin HCl [Glucophage 500 mg Tablet] 1,000 mg PO BID 08/18/18 Multivitamin [One-Daily Multi-Vitamin] 1 each PO DAILY 08/18/18 Allergies/Adverse Reactions: No Known Allergies Allergy (Verified 08/17/18 19:38) Review of Systems Constitutional: ABSENT: anorexia, chills, fatigue, fever(s) Eyes: ABSENT: visual disturbances Ears: ABSENT: hearing changes Nose, Mouth, and Throat: ABSENT: sore throat Cardiovascular: ABSENT: chest pain Respiratory: ABSENT: cough Gastrointestinal: PRESENT: nausea, vomiting. ABSENT: abdominal pain Genitourinary: ABSENT: dysuria Musculoskeletal: ABSENT: back pain Integumentary: ABSENT: pruritus, rash Neurological: ABSENT: confusion, convulsions, dizziness Psychiatric: ABSENT: anxiety, depression Endocrine: ABSENT: cold intolerance, heat intolerance Hematologic/Lymphatic: PRESENT: easy bleeding, easy bruising Physical Exam Vital Signs: Temp Pulse Resp BP Pulse Ox 99.7 F 66 16 98/50 L 97 08/28/18 20:00 08/28/18 20:00 08/28/18 20:00 08/28/18 20:00 08/28/18 20:00 Intake & Output 08/27/18 08/28/18 08/29/18 06:59 06:59 06:59 Intake Total 1232 3097 1331 Output Total 300 1200 800 Balance 932 1897 531 Weight 52.5 kg 69.1 kg General appearance: PRESENT: no acute distress, cooperative Head exam: PRESENT: atraumatic, normocephalic Eye exam: PRESENT: EOMI, PERRLA. ABSENT: scleral icterus Mouth exam: PRESENT: moist Neck exam: ABSENT: meningismus, tenderness, thyromegaly, tracheal deviation Respiratory exam: PRESENT: clear to auscultation joann, unlabored. ABSENT: chest wall tenderness, tachypnea, wheezes Cardiovascular exam: PRESENT: RRR Pulses: PRESENT: normal radial pulses Vascular exam: PRESENT: normal capillary refill GI/Abdominal exam: PRESENT: soft. ABSENT: distended, firm, guarding, Song's sign, tenderness Rectal exam: PRESENT: deferred Extremities exam: ABSENT: clubbing Musculoskeletal exam: ABSENT: deformity Neurological exam: PRESENT: alert, awake, oriented to person, oriented to place, oriented to time, oriented to situation Psychiatric exam: ABSENT: agitated, anxious, depressed Focused psych exam: ABSENT: delusional Skin exam: ABSENT: cyanosis, erythema, jaundice Results Laboratory Results: 08/28/18 16:49 08/28/18 14:09 08/28/18 08/28/18 08/28/18 05:34 05:34 10:06 WBC 9.5 RBC 2.75 L Hgb 8.2 L Hct 23.9 L MCV 87 MCH 29.8 MCHC 34.3 RDW 13.6 Plt Count 288 Seg Neutrophils % 72.7 Lymphocytes % 17.4 Monocytes % 7.0 Eosinophils % 2.4 Basophils % 0.5 Absolute Neutrophils 6.9 Absolute Lymphocytes 1.6 Absolute Monocytes 0.7 Absolute Eosinophils 0.2 Absolute Basophils 0.1 Sodium 126.9 L Potassium 3.8 Chloride 89 L Carbon Dioxide 30 Anion Gap 8 BUN 57 H Creatinine 1.94 H Est GFR ( Amer) 30 L Est GFR (Non-Af Amer) 25 L Glucose 103 Calcium 7.6 L Magnesium 3.1 H Total Bilirubin 1.1 AST 13 L ALT 15 Alkaline Phosphatase 62 Total Protein 5.0 L Albumin 2.6 L Blood Type O POSITIVE Antibody Screen NEGATIVE 08/28/18 08/28/18 14:09 16:49 WBC 8.3 RBC 2.99 L Hgb 9.0 L Hct 25.9 L MCV 87 MCH 30.1 MCHC 34.8 RDW 13.6 Plt Count 258 Seg Neutrophils % Lymphocytes % Monocytes % Eosinophils % Basophils % Absolute Neutrophils Absolute Lymphocytes Absolute Monocytes Absolute Eosinophils Absolute Basophils Sodium 128.6 L Potassium 3.8 Chloride 93 L Carbon Dioxide 29 Anion Gap 7 BUN 53 H Creatinine 1.69 H Est GFR ( Amer) 36 L Est GFR (Non-Af Amer) 29 L Glucose 151 H Calcium 7.9 L Magnesium Total Bilirubin 1.5 H AST 14 ALT 16 Alkaline Phosphatase 61 Total Protein 4.9 L Albumin 2.5 L Blood Type Antibody Screen 08/17/18 08/17/18 08/18/18 21:35 21:35 03:27 Creatine Kinase 28 L 29 L CK-MB (CK-2) 0.71 Troponin I 0.028 NT-Pro-B Natriuret Pep 08/18/18 08/18/18 08/18/18 03:27 09:35 09:35 Creatine Kinase 32 CK-MB (CK-2) 0.74 0.85 Troponin I 0.024 0.028 NT-Pro-B Natriuret Pep 08/19/18 08/20/18 08/26/18 05:32 05:10 05:33 Creatine Kinase CK-MB (CK-2) Troponin I 0.027 0.027 NT-Pro-B Natriuret Pep 46419 H Impressions: Cervical Spine CT 08/17/18 20:05 IMPRESSION: 1. Straightening of the cervical spine which may be secondary to positioning for the examination versus spasm. 2. Multilevel degenerative change without fracture or acute subluxation. 3. Incidentally noted severe narrowing at the level of the craniocervical junction secondary to dense pannus formation and irregularity, hypertrophy of the clivus raising the question of sequela of prior trauma, congenital etiology and/or inflammatory arthropathy. If not previously performed, follow-up evaluation with MRI may be considered. TECHNICAL DOCUMENTATION: Quality ID # [id number]: Final reports with documentation of one or more dose reduction techniques (e.g., Automated exposure control, adjustment of the mA and/or kV according to patient size, use of iterative reconstruction technique) copyright 2010 [employer]- All Rights Reserved Femur X-Ray 08/17/18 20:05 IMPRESSION: Mildly displaced intratrochanteric left femoral neck fracture. Head CT 08/17/18 20:05 IMPRESSION: 1. No acute intracranial abnormalities. Nonspecific white matter change most likely small vessel ischemic disease, age indeterminate. 2. CT is insensitive for early evaluation of acute stroke. If there is clinical concern for acute ischemia, an MRI may be considered. 3. Incidentally noted severe narrowing at the level of the craniocervical junction secondary to dense callus formation and irregularity, hypertrophy of the clivus raising the question of sequela of prior trauma, congenital etiology and/or inflammatory arthropathy. TECHNICAL DOCUMENTATION: Quality ID # [id number]: Final reports with documentation of one or more dose reduction techniques (e.g., Automated exposure control, adjustment of the mA and/or kV according to patient size, use of iterative reconstruction technique) copyright 2010 [employer]- All Rights Reserved Knee X-Ray 08/17/18 20:05 IMPRESSION: Mildly displaced intratrochanteric left femoral neck fracture. Elbow X-Ray 08/18/18 00:00 IMPRESSION: Degenerative changes involving the elbow joint, with a possible small joint effusion. copyright 2010 [employer]- All Rights Reserved Fluoroscopy 08/18/18 00:00 IMPRESSION: Limited intraoperative images of the left femur fixation obtained to evaluate or progress. Please see operative report for detailed description of procedure. Hip X-Ray 08/18/18 00:00 IMPRESSION: Limited intraoperative images of the left femur fixation obtained to evaluate or progress. Please see operative report for detailed description of procedure. Shoulder X-Ray 08/18/18 00:00 IMPRESSION: No acute fracture or malalignment. Chest X-Ray 08/21/18 06:00 IMPRESSION: Cardiomegaly without acute abnormality of the lungs in AP projection. KUB X-Ray 08/25/18 00:00 IMPRESSION: Findings consistent with constipation. Renal Ultrasound 08/27/18 00:00 IMPRESSION: 1. No hydronephrosis. 2. Mild bilateral renal cortical atrophy. 3. Incidental note of a generously distended gallbladder with sludge. Assessment & Plan - Diagnosis (1) Gallbladder disease Is this a current diagnosis for this admission?: Yes - Plan Summary Plan Summary: This is a 77-year-old female status post hip fracture repair. The patient was undergoing renal ultrasound was found to have a markedly distended gallbladder. Surgery has been consulted for an opinion regarding this. The patient does report occasional vomiting, but cannot relate it to any specific food group. I will order a dedicated gallbladder ultrasound to assess for cholecystitis. I will have the nurses monitor for vomiting. The patient had a mild elevation in her bilirubin today. I will repeat her CMP tomorrow to establish a trend. I wi ll follow this patient closely with you.
[2018-08-29] MEDS: INSULIN GLARGINE,HUM.REC.ANLOG 1,000 UNIT/10 ML UNIT SUBCUT SCH ×2 (06:31→18:21)
[2018-08-29] MEDS: INSULIN LISPRO 100 UNIT/ML 3 ML VIAL SUBCUT SCH ×5 (07:51→21:45)
[2018-08-29] MEDS ORDERED: DEXTROSE 40% GEL 15 GM TUBE PO PRN (08:33)
[2018-08-29] MEDS ORDERED: HYDROMORPHONE HCL INJ/PF 2 MG/ML AMPULE IV PRN (08:51)
--- NOTE | 2018-08-29 09:20 | PDOC PROGRESS REPORT ---
Subjective Progress Note for:: 08/29/18 Subjective:: Patient working on [employer] this morning has no abdominal complaints. She has no nausea or vomiting. He is complaining of musculoskeletal issues. Reason For Visit: LEFT HIP FRACTURE, DIABETES Physical Exam Vital Signs: Temp Pulse Resp BP Pulse Ox 98.0 F 60 16 105/50 L 97 08/29/18 00:00 08/29/18 00:00 08/29/18 00:00 08/29/18 00:00 08/29/18 00:00 Intake & Output 08/28/18 08/29/18 08/30/18 06:59 06:59 06:59 Intake Total 3097 1331 Output Total 1200 800 Balance 1897 531 Weight 69.1 kg 69.1 kg General appearance: PRESENT: no acute distress GI/Abdominal exam: PRESENT: other - Soft, nontender no peritoneal signs no rigidity no distention. Results Laboratory Results: 08/29/18 03:55 08/29/18 03:55 08/28/18 08/28/18 08/28/18 10:06 14:09 16:49 WBC 8.3 RBC 2.99 L Hgb 9.0 L Hct 25.9 L MCV 87 MCH 30.1 MCHC 34.8 RDW 13.6 Plt Count 258 Seg Neutrophils % Lymphocytes % Monocytes % Eosinophils % Basophils % Absolute Neutrophils Absolute Lymphocytes Absolute Monocytes Absolute Eosinophils Absolute Basophils Sodium 128.6 L Potassium 3.8 Chloride 93 L Carbon Dioxide 29 Anion Gap 7 BUN 53 H Creatinine 1.69 H Est GFR ( Amer) 36 L Est GFR (Non-Af Amer) 29 L Glucose 151 H Calcium 7.9 L Magnesium Total Bilirubin 1.5 H AST 14 ALT 16 Alkaline Phosphatase 61 Total Protein 4.9 L Albumin 2.5 L Blood Type O POSITIVE Antibody Screen NEGATIVE 08/29/18 08/29/18 03:55 03:55 WBC 7.8 RBC 3.01 L Hgb 9.0 L Hct 26.0 L MCV 86 MCH 29.8 MCHC 34.5 RDW 13.7 Plt Count 274 Seg Neutrophils % 69.3 Lymphocytes % 18.8 Monocytes % 6.7 Eosinophils % 3.7 Basophils % 1.5 Absolute Neutrophils 5.4 Absolute Lymphocytes 1.5 Absolute Monocytes 0.5 Absolute Eosinophils 0.3 Absolute Basophils 0.1 Sodium 132.6 L Potassium 3.9 Chloride 97 L Carbon Dioxide 27 Anion Gap 9 BUN 48 H Creatinine 1.38 H Est GFR ( Amer) 45 L Est GFR (Non-Af Amer) 37 L Glucose 82 Calcium 8.0 L Magnesium 2.8 H Total Bilirubin 1.4 H AST 14 ALT 22 Alkaline Phosphatase 62 Total Protein 5.0 L Albumin 2.6 L Blood Type Antibody Screen 08/17/18 08/17/18 08/18/18 21:35 21:35 03:27 Creatine Kinase 28 L 29 L CK-MB (CK-2) 0.71 Troponin I 0.028 NT-Pro-B Natriuret Pep 08/18/18 08/18/18 08/18/18 03:27 09:35 09:35 Creatine Kinase 32 CK-MB (CK-2) 0.74 0.85 Troponin I 0.024 0.028 NT-Pro-B Natriuret Pep 08/19/18 08/20/18 08/26/18 05:32 05:10 05:33 Creatine Kinase CK-MB (CK-2) Troponin I 0.027 0.027 NT-Pro-B Natriuret Pep 08545 H Impressions: Cervical Spine CT 08/17/18 20:05 IMPRESSION: 1. Straightening of the cervical spine which may be secondary to positioning for the examination versus spasm. 2. Multilevel degenerative change without fracture or acute subluxation. 3. Incidentally noted severe narrowing at the level of the craniocervical junction secondary to dense pannus formation and irregularity, hypertrophy of the clivus raising the question of sequela of prior trauma, congenital etiology and/or inflammatory arthropathy. If not previously performed, follow-up evaluation with MRI may be considered. TECHNICAL DOCUMENTATION: Quality ID # 436: Final reports with documentation of one or more dose reduction techniques (e.g., Automated exposure control, adjustment of the mA and/or kV according to patient size, use of iterative reconstruction technique) copyright 2011 [employer]- All Rights Reserved Femur X-Ray 08/17/18 20:05 IMPRESSION: Mildly displaced intratrochanteric left femoral neck fracture. Head CT 08/17/18 20:05 IMPRESSION: 1. No acute intracranial abnormalities. Nonspecific white matter change most likely small vessel ischemic disease, age indeterminate. 2. CT is insensitive for early evaluation of acute stroke. If there is clinical concern for acute ischemia, an MRI may be considered. 3. Incidentally noted severe narrowing at the level of the craniocervical junction secondary to dense callus formation and irregularity, hypertrophy of the clivus raising the question of sequela of prior trauma, congenital etiology and/or inflammatory arthropathy. TECHNICAL DOCUMENTATION: Quality ID # [id number]: Final reports with documentation of one or more dose reduction techniques (e.g., Automated exposure control, adjustment of the mA and/or kV according to patient size, use of iterative reconstruction technique) copyright 2010 [employer]- All Rights Reserved Knee X-Ray 08/17/18 20:05 IMPRESSION: Mildly displaced intratrochanteric left femoral neck fracture. Elbow X-Ray 08/18/18 00:00 IMPRESSION: Degenerative changes involving the elbow joint, with a possible small joint effusion. copyright 2010 [employer]- All Rights Reserved Fluoroscopy 08/18/18 00:00 IMPRESSION: Limited intraoperative images of the left femur fixation obtained to evaluate or progress. Please see operative report for detailed description of procedure. Hip X-Ray 08/18/18 00:00 IMPRESSION: Limited intraoperative images of the left femur fixation obtained to evaluate or progress. Please see operative report for detailed description of procedure. Shoulder X-Ray 08/18/18 00:00 IMPRESSION: No acute fracture or malalignment. Chest X-Ray 08/21/18 06:00 IMPRESSION: Cardiomegaly without acute abnormality of the lungs in AP projection. KUB X-Ray 08/25/18 00:00 IMPRESSION: Findings consistent with constipation. Renal Ultrasound 08/27/18 00:00 IMPRESSION: 1. No hydronephrosis. 2. Mild bilateral renal cortical atrophy. 3. Incidental note of a generously distended gallbladder with sludge. Assessment & Plan - Diagnosis (1) Gallbladder disease Is this a current diagnosis for this admission?: Yes Plan: Impression: Benign exam today; patient eating [place] toast,inadvertently not kept n.p.o.; today's bilirubin down to 1.4. Recommendation: 1. Patient was found to have a distended gallbladder. She is undergoing a dedicated gallbladder ultrasound this morning. 2. She is currently asymptomatic. In light of her multiple comorbidities, and benign clinical picture, there is no indication for surgical intervention at this moment. 3. We will continue to follow the patient on a consulting basis.
[2018-08-29] MEDS: METOPROLOL SUCCINATE 25 MG TAB.SR.24H PO SCH ×2 (11:48→21:41)
[2018-08-29] MEDS: DOCUSATE SODIUM 100 MG CAPSULE PO SCH ×3 (11:49→18:21)
[2018-08-29] MEDS: MULTIVITAMIN TABLET PO SCH ×2 (11:49→11:51)
[2018-08-29] MEDS: ASPIRIN 81 MG TABLET, CHEWABLE PO SCH ×2 (11:50)
--- NOTE | 2018-08-29 12:55 | PDOC PROGRESS REPORT ---
Subjective Progress Note for:: 08/29/18 Subjective:: This is a 77 year old female with a past medical history of congestive heart failure, coronary artery disease, prior CABG, prior AICD placement, rheumatic heart disease, diabetes and history of recurrent falls who fell at home and sustained a minimally displaced left trochanteric femoral fracture. Patient says she fell "like she used to", that she was trying to ambulate and had recurrence of her "head spinning" like she often has and fell on the floor. Patient underwent nailing of left intertrochanteric hip fracture on 08/18/18 which was uneventful. No acute event overnight. Pain is well-controlled upon encounter. She did work with PT today but was noted to be generally weak and was just able to stand on the side of the bed with significant assistance. She denies chest pain, SOB or palpitations. No recurrence of fever. Patient and son (David) was updated about plan for discharge to inpatient rehab and they are agreeable. 08/23/2018-acute events in the last 24 hours. Patient is afebrile. Patient is still complaining of pain. She is working with PT. Plan is to discharge her to the rehab. 08/24/2018 no acute events in the last 24 hours, patient is afebrile. Comfortably sleeping in the bed. Woke up and calling denies any complaints today. I had a discussion with the social science research assistant emilia according to her [facility] is offering a bed but they are waiting for the approval from Medicare. 08/25/2018-no acute events in the last 24 hours. Patient is afebrile. Comfortably sleeping in bed. Physical therapy is working with the patient. She is waiting for placement. 08/26/2018-no acute events in the last 24 hours. Patient is afebrile. Patient is able to participate in the physical therapy. Potassium levels came back up 5.6 and creatinine went up to 1.39 from 0.97. Going to recheck the labs again. Patient waiting for a correction placement. 08/27/2018 patient became hypotensive this morning blood pressure is 95/42. And creatinine also went up from 1.34-2.06 today. Patient is comfortably in the bed she states her appetite is not good and she is not eating much. 08/28/2018-patient is still hypotensive blood pressure is 98/37 requested the nurse to do the manual reading. She was started on normal saline 75 cc/h cre atinine was slightly improved to 1.94 but her sodium is dropped from 132-127 I placed a consult for nephrology yesterday but unfortunately there is no nephrology coverage over the weekend. Patient is afebrile no acute events in the last 24 hours. 08/29/2018 no acute events in the last 24 hours. Patient is afebrile. Asymptomatic. Reason For Visit: LEFT HIP FRACTURE, DIABETES Physical Exam Vital Signs: Temp Pulse Resp BP Pulse Ox 99.3 F 60 18 116/39 L 96 08/29/18 07:15 08/29/18 07:15 08/29/18 07:15 08/29/18 07:15 08/29/18 07:15 Intake & Output 08/28/18 08/29/18 08/30/18 06:59 06:59 06:59 Intake Total 3097 1331 Output Total 1200 800 Balance 1897 531 Weight 69.1 kg 69.1 kg General appearance: PRESENT: no acute distress Head exam: PRESENT: atraumatic Eye exam: PRESENT: PERRLA Mouth exam: PRESENT: moist Neck exam: ABSENT: carotid bruit, JVD, lymphadenopathy, thyromegaly Respiratory exam: PRESENT: decreased breath sounds Cardiovascular exam: PRESENT: RRR. ABSENT: diastolic murmur, rubs, systolic murmur GI/Abdominal exam: PRESENT: normal bowel sounds, soft. ABSENT: distended, guarding, mass, organolmegaly, rebound, tenderness Extremities exam: PRESENT: full ROM. ABSENT: calf tenderness, clubbing, pedal edema Neurological exam: PRESENT: alert, awake, oriented to person, oriented to place, oriented to time, oriented to situation, CN II-XII grossly intact. ABSENT: motor sensory deficit Psychiatric exam: PRESENT: appropriate affect, normal mood. ABSENT: homicidal ideation, suicidal ideation Results Laboratory Results: 08/29/18 03:55 08/29/18 03:55 08/28/18 08/28/18 08/29/18 14:09 16:49 03:55 WBC 8.3 7.8 RBC 2.99 L 3.01 L Hgb 9.0 L 9.0 L Hct 25.9 L 26.0 L MCV 87 86 MCH 30.1 29.8 MCHC 34.8 34.5 RDW 13.6 13.7 Plt Count 258 274 Seg Neutrophils % 69.3 Lymphocytes % 18.8 Monocytes % 6.7 Eosinophils % 3.7 Basophils % 1.5 Absolute Neutrophils 5.4 Absolute Lymphocytes 1.5 Absolute Monocytes 0.5 Absolute Eosinophils 0.3 Absolute Basophils 0.1 Sodium 128.6 L Potassium 3.8 Chloride 93 L Carbon Dioxide 29 Anion Gap 7 BUN 53 H Creatinine 1.69 H Est GFR ( Amer) 36 L Est GFR (Non-Af Amer) 29 L Glucose 151 H Calcium 7.9 L Magnesium Total Bilirubin 1.5 H AST 14 ALT 16 Alkaline Phosphatase 61 Total Protein 4.9 L Albumin 2.5 L 08/29/18 03:55 WBC RBC Hgb Hct MCV MCH MCHC RDW Plt Count Seg Neutrophils % Lymphocytes % Monocytes % Eosinophils % Basophils % Absolute Neutrophils Absolute Lymphocytes Absolute Monocytes Absolute Eosinophils Absolute Basophils Sodium 132.6 L Potassium 3.9 Chloride 97 L Carbon Dioxide 27 Anion Gap 9 BUN 48 H Creatinine 1.38 H Est GFR ( Amer) 45 L Est GFR (Non-Af Amer) 37 L Glucose 82 Calcium 8.0 L Magnesium 2.8 H Total Bilirubin 1.4 H AST 14 ALT 22 Alkaline Phosphatase 62 Total Protein 5.0 L Albumin 2.6 L 08/17/18 08/17/18 08/18/18 21:35 21:35 03:27 Creatine Kinase 28 L 29 L CK-MB (CK-2) 0.71 Troponin I 0.028 NT-Pro-B Natriuret Pep 08/18/18 08/18/18 08/18/18 03:27 09:35 09:35 Creatine Kinase 32 CK-MB (CK-2) 0.74 0.85 Troponin I 0.024 0.028 NT-Pro-B Natriuret Pep 08/19/18 08/20/18 08/26/18 05:32 05:10 05:33 Creatine Kinase CK-MB (CK-2) Troponin I 0.027 0.027 NT-Pro-B Natriuret Pep 99086 H Impressions: Cervical Spine CT 08/17/18 20:05 IMPRESSION: 1. Straightening of the cervical spine which may be secondary to positioning for the examination versus spasm. 2. Multilevel degenerative change without fracture or acute subluxation. 3. Incidentally noted severe narrowing at the level of the craniocervical junction secondary to dense pannus formation and irregularity, hypertrophy of the clivus raising the question of sequela of prior trauma, congenital etiology and/or inflammatory arthropathy. If not previously performed, follow-up evaluation with MRI may be considered. TECHNICAL DOCUMENTATION: Quality ID # 436: Final reports with documentation of one or more dose reduction techniques (e.g., Automated exposure control, adjustment of the mA and/or kV according to patient size, use of iterative reconstruction technique) copyright 2010 [employer]- All Rights Reserved Femur X-Ray 08/17/18 20:05 IMPRESSION: Mildly displaced intratrochanteric left femoral neck fracture. Head CT 08/17/18 20:05 IMPRESSION: 1. No acute intracranial abnormalities. Nonspecific white matter change most likely small vessel ischemic disease, age indeterminate. 2. CT is insensitive for early evaluation of acute stroke. If there is clinical concern for acute ischemia, an MRI may be considered. 3. Incidentally noted severe narrowing at the level of the craniocervical junction secondary to dense callus formation and irregularity, hypertrophy of the clivus raising the question of sequela of prior trauma, congenital etiology and/or inflammatory arthropathy. TECHNICAL DOCUMENTATION: Quality ID # 436: Final reports with documentation of one or more dose reduction techniques (e.g., Automated exposure control, adjustment of the mA and/or kV according to patient size, use of iterative reconstruction technique) copyright 2010 [employer]- All Rights Reserved Knee X-Ray 08/17/18 20:05 IMPRESSION: Mildly displaced intratrochanteric left femoral neck fracture. Elbow X-Ray 08/18/18 00:00 IMPRESSION: Degenerative changes involving the elbow joint, with a possible small joint effusion. copyright 2010 [employer]- All Rights Reserved Fluoroscopy 08/18/18 00:00 IMPRESSION: Limited intraoperative images of the left femur fixation obtained to evaluate or progress. Please see operative report for detailed description of procedure. Hip X-Ray 08/18/18 00:00 IMPRESSION: Limited intraoperative images of the left femur fixation obtained to evaluate or progress. Please see operative report for detailed description of procedure. Shoulder X-Ray 08/18/18 00:00 IMPRESSION: No acute fracture or malalignment. Chest X-Ray 08/21/18 06:00 IMPRESSION: Cardiomegaly without acute abnormality of the lungs in AP p rojection. KUB X-Ray 08/25/18 00:00 IMPRESSION: Findings consistent with constipation. Renal Ultrasound 08/27/18 00:00 IMPRESSION: 1. No hydronephrosis. 2. Mild bilateral renal cortical atrophy. 3. Incidental note of a generously distended gallbladder with sludge. Assessment & Plan - Diagnosis (1) Intertrochanteric fracture of left hip Qualifiers: Encounter type: initial encounter Fracture type: closed Fracture alignment: displaced Qualified Code(s): S72.142A - Displaced intertrochanteric fracture of left femur, initial encounter for closed fracture Is this a current diagnosis for this admission?: Yes Plan: S/P Nailing of left intertrochanteric hip fracture on 08/18/18. Switched DVT prophylaxis to Xarelto per ortho recommendation. Discussed going to inpatient rehab and patient and son are agreeable to plan. Placement process initiated. 08/23/2018-patient is admitted with left intertrochanteric hip fracture on 08/17/2018 status post nailing was done on 08/18/2018. Patient is doing well. She is agreed to go to the rehab. hollow handle bench worker consult was in place. 08/24/2018-admitted for left hip fracture status post nailing on 08/18/2018. Physical therapy is working with the patient. Patient agreed to go to the rehab. Waiting for the placement. In the meantime we will continue the present management. 08/25/2018-patient admitted with left hip fracture status post nailing on 08/18/2018-waiting for correction placement. Plan is to continue the present management. 08/26/2018-patient was admitted with left hip fracture status post nailing on 08/24/2018. Waiting for the correction placement. In the meantime will continue PT. 08/27/2018-patient was admitted with left hip fracture status post nailing in 08/24/2018-patient has a bed available at the correction but she is hypotensive today with a blood pressure of 95/42 and creatinine jumped to 2.06 I am going to start her on IV fluids normal saline at 75 cc/h renal ultrasound was requested and consultation with nephrology was requested. 08/28/2018-patient has a left hip fracture status post nailing on 08/24/2018 waiting for correction placement. 08/29/2018 patient has a left hip fracture status post nailing on 08/24/2018. No postop complications. Patient is waiting for correction placement. (2) Congestive heart failure Is this a current diagnosis for this admission?: Yes Plan: 08/23/2018-patient has history of congestive heart failure with ejection fraction of less than 25%. She has history of cardiomyopathy. Patient is on Lopressor and valsartan plan is to continue the present management. It is not in fluid overload. 08/24/2018-patient has history of congestive heart failure with EF of less than 25%. Patient is on Lopressor, valsartan. Plan is to continue the present management. Patient has chronic left ventricular systolic heart failure. 08/25/2018-on examination patient is not in fluid overload. Patient is presently on Lopressor /valsartan. She has left ventricular systolic failure with EF of less than 25%. 08/26/2018-BNP came back as 10,500. Patient is a Lopressor/valsartan. Patient has left ventricular failure with EF of 25%. I am going to start her on Lasix 20 mg p.o. twice daily. 08/27/2018-patient blood pressure is 95/42 and creatinine was 2.06 I stopped valsartan today and also Lasix was discontinued I am going to give gentle fluid at 75 cc/h for the next 24 hours and recheck the labs tomorrow. 08/28/2018-patient blood pressure is still 98/37. On IV fluids normal saline at 75 cc/h was started on and Lasix were discontinued yesterday she has history of congestive heart failure with left ventricular systolic failure with EF of less than 25%. 08/29/2018 patient blood pressure today is 116/40 is better than yesterday. She is getting IV fluids normal saline at 75 cc/h he has a history of congestive heart failure with a left ventricular systolic failure and EF is less than 25%. We are going to closely watch her fluid status. (3) Diabetes mellitus Qualifiers: Diabetes mellitus type: type 2 Is this a current diagnosis for this admission?: Yes Plan: 08/23/2018-patient has history of diabetes mellitus on metformin at home which was on hold presently she is on insulin sliding scale latest blood sugar is 219 I started on Lantus 5 units twice a day. Hemoglobin A1c was requested. 08/24/2018-patient's latest blood sugar is 272. Blood sugars are fluctuating. Patient is on insulin sliding scale and was started on Lantus 5 units twice a day. I am going to increase the Lantus to 10 units twice a day. 08/25/2018-today's blood sugar is 149 relatively controlled. Patient is on insulin sliding scale before meals and at bedtime and Lantus 10 units twice a day. Plan is to continue the present management. Patient's hemoglobin A1c is 6.4. 08/26/2018-blood sugar today is 177-patient is on insulin sliding scale before meals and at bedtime along with Lantus 10 units twice a day. Plan is to continue the present management. 08/27/2018-patient's latest blood sugar is 135. Plan is to continue the present management blood sugars are well controlled. 08/28/2018 blood sugar is 103 plan is to continue the present management. Patient is on insulin sliding scale before meals and at bedtime and also on Lantus 10 units twice a day. Hemoglobin A1c 6.4. 2018 blood sugar today is 108 well-controlled. Plan is to continue the present management. (4) UTI (urinary tract infection) Is this a current diagnosis for this admission?: Yes Plan: 08/23/2018 patient is in IV Rocephin for UTI blood cultures are negative so far. 08/24/2018-plan is to discontinue antibiotics. 08/27/2018 patient is not on antibiotics anymore T-max is 98.3. (5) Acute kidney injury Is this a current diagnosis for this admission?: Yes Plan: Patient creatinine is 0.97 yesterday jumped to 1.38 today. AK I may be sec to prerenal causes. I am going to repeat the labs again tomorrow. 08/27/2018-creatinine jumped to 2.06 from 1.34 yesterday. Stopped Lasix and valsartan. Started on gentle IV fluids 75 cc/h, renal ultrasound and nephrology consult was requested. 08/28/2018 with IV fluids normal saline at 75 cc/h creatinine was slightly improved from 2.06-1.94. She has a positive balance of 900 mL in the last 24 hours. renal Ultrasound shows no hydronephrosis. 08/29/2018 latest creatinine is 1.38 improved from 2.0. Probably prerenal. Plan is to continue the IV fluids for at least another day and recheck tomorrow labs. (6) Hyponatremia Is this a current diagnosis for this admission?: Yes Plan: 08/28/2018 patient's sodium level is 132 yesterday it dropped to 127 with IV fluids normal at 75 cc/h I am going to repeat the labs again this afternoon and also tomorrow nephrology consult was requested. 08/29/2018-serum sodium level today is 132.6. Improved from 127 yesterday. Is getting normal saline at 75 cc/h. Function is also improving. Allergy consult was requested yesterday. - Time Time Spent with patient: 15-24 minutes Medications reviewed and adjusted accordingly: Yes Anticipated discharge: Acute Rehab
[2018-08-29] MEDS: NORMAL SALINE 1000 ML 1,000 ML IV PRN (17:08)
[2018-08-29] MEDS: RIVAROXABAN 10 MG TABLET PO SCH (18:21)
--- NOTE | 2018-08-29 18:29 | RADIOLOGY REPORT (SQ) ---
EXAM DESCRIPTION: U/S ABDOMEN LIMITED W/O DOP COMPLETED DATE/TIME: 08/29/2018 6:20 pm REASON FOR STUDY: distended gallbladder seen on renal exam, vomiting COMPARISON: None. TECHNIQUE: Dynamic and static grayscale images acquired of the abdomen and recorded on PACS. Additio nal selected color Doppler and spectral images recorded. LIMITATIONS: None. FINDINGS: PANCREAS: No masses. Visualized pancreatic duct normal caliber. LIVER: No masses. Echotexture normal. LIVER VASCULATURE: Normal directional flow of the main portal vein and hepatic veins. GALLBLADDER: Gallstone(s). No pericholecystic fluid. No wall thickening. Mild distension, probably p hysiologic. ULTRASOUND-DETECTED BANKS'S SIGN: Negative. INTRAHEPATIC DUCTS AND COMMON DUCT: CBD and intrahepatic ducts normal caliber. No filling defects. INFERIOR VENA CAVA: Normal flow. AORTA: No aneurysm. RIGHT KIDNEY: Normal size. Normal echogenicity. No solid or suspicious masses. No hydronephrosis. No calcifications. PERITONEAL AND RIGHT PLEURAL SPACE: No ascites or effusions. OTHER: No other significant findings. IMPRESSION: Cholelithiasis. No evidence of acute cholecystitis. TECHNICAL DOCUMENTATION: JOB ID: [id number] [employer] All Rights Reserved Reading location - IP/workstation name: [email or web address]
--- NOTE | 2018-08-29 20:40 | PDOC CONSULTATION ---
Consultation Consult Date: 08/29/18 Attending physician:: KIMBERLY ARAUJO Consult reason:: I was asked to see the patient because of worsening kidney function and hyponatremia. History of Present Illness Admission Date/PCP: 08/17/18 22:20 YAMILKA EPSTEIN MD History of Present Illness: VALE SOTO is a 77 year old female with history of congestive heart failure with ejection fraction of 25%, coronary artery disease status post CABG with AICD/pacemaker placement, and diabetes mellitus who was admitted on August 17, 2018 after a fall and sustaining a left hip intertrochanteric fracture. She had nailing of the fracture on August 24, 2018. Patient was supposed to go to the assisted for rehabilitation. August 26 she was started back on her Lasix twice a day. Subsequently the patient's blood pressure started going down for the last couple of days after that. Lowest blood pressure is at 84/28 and has been on the systolic blood pressure of the 90s if not low 100s. In terms of her kidney function her BUN was 48 and creatinine of 1.34 on August 26 going up to 55 and 2.06 on August 27. Yesterday she had a BUN of 57 and creatinine of 1.94. Her Lasix and valsartan were discontinued 2 days ago on Wednesday. She had a kidney ultrasound which did not show any hydro-process and was pretty unremarkable except for incidental finding of a gallbladder sludge for which she had abdominal ultrasound showing cholelithiasis without any cholecystitis today. Yesterday she also had a Sullivan catheter insertion for which she was putting out a decent amount of urine output. She was also started on a cautious IV fluid at 75 cc an hour since Wednesday. Her sodium level went down from 132.4 on August 27 to 128.6 yesterday August 28. Today it is back to 132.6. Her kidney function today shows a BUN of 48, creatinine of 1.38 with estimated GFR of 37. Her urine output over the weekend ranges anywhere between 800-1200 mL. When I talked to the patient today she seems to be pretty comfortable lying down in bed. She denies any previous history of kidney disease including kidney stones. She really does not complain of much abdominal pain she said she may have a li ttle discomfort and some nausea and vomiting. She complains of her legs hurting. Otherwise she denies any chest pains no shortness of breath. She has a fair appetite. Past Medical History Cardiac Medical History: Reports: CHF-Systolic - Ejection fraction 25%, Coronary Artery Disease, Myocardial Infarction, Other - Rheumatic heart disease Endocrine Medical History: Reports: Diabetes Mellitus Type 2 Past Surgical History Past Surgical History: Reports: Pacemaker - AICD combination Social History Information Source: [facility] Records Lives with: Alone Smoking Status: Never Smoker Frequency of Alcohol Use: None Hx Recreational Drug Use: No Drugs: None Hx Prescription Drug Abuse: No - Advance Directive Resuscitation Status: Full Code Family History Family History: CAD - Father had a heart attack, DM - Father Parental Family History Reviewed: Yes Children Family History Reviewed: Yes Sibling(s) Family History Reviewed.: Yes Medication/Allergy Home Medications: Metformin HCl [Glucophage 500 mg Tablet] 1,000 mg PO BID 08/18/18 Multivitamin [One-Daily Multi-Vitamin] 1 each PO DAILY 08/18/18 Allergies/Adverse Reactions: No Known Allergies Allergy (Verified 08/17/18 19:38) Review of Systems All systems: reviewed and no additional remarkable complaints except as stated Review of Systems: Constitutional: ABSENT: chills, fatigue, fever(s), headache(s), weight gain, weight loss Eyes: ABSENT: visual disturbances Ears: ABSENT: hearing changes Cardiovascular: ABSENT: chest pain, dyspnea on exertion, edema, orthropnea, palpitations Respiratory: ABSENT: cough, dyspnea, hemoptysis Gastrointestinal: ABSENT: abdominal pain, constipation, diarrhea, hematemesis, hematochezia; admits nausea, and vomiting Genitourinary: ABSENT: dysuria, hematuria Musculoskeletal: ABSENT: joint swelling; complaints of her legs hurting Integumentary: ABSENT: rash, wounds Neurological: ABSENT: abnormal gait, abnormal speech, confusion, dizziness, focal weakness, numbness, syncope Psychiatric: ABSENT: anxiety, depression Endocrine: ABSENT: cold intolerance, heat intolerance, polydipsia, polyuria Hematologic/Lymphatic: ABSENT: easy bleeding, easy bruising, lymphadenopathy Physical Exam Vital Signs: Temp Pulse Resp BP Pulse Ox 99.8 F 69 16 135/50 H 95 08/29/18 19:52 08/29/18 19:52 08/29/18 19:52 08/29/18 19:52 08/29/18 19:52 Intake & Output 01/08/29/18 08/30/18 06:59 06:59 06:59 Intake Total 3097 2331 1000 Output Total 1200 800 680 Balance 1897 1531 320 Weight 69.1 kg 69.1 kg Exam: General appearance: No acute distress, cooperative, well-developed, well- nourished Head exam: PRESENT: atraumatic, normocephalic Eye exam: PRESENT: Conjunctiva [place], EOMI, PERRLA. ABSENT: conjunctival injection, scleral icterus Mouth exam: PRESENT: moist, neck supple, tongue midline Neck exam: PRESENT: full ROM. ABSENT: carotid bruit, JVD, lymphadenopathy, thyromegaly Respiratory exam: PRESENT: clear to auscultation bilaterally. ABSENT: rales, rhonchi, stridor, wheezes Cardiovascular exam: PRESENT: RRR, +S1, +S2. Grade 2/6 systolic murmur Pulses: PRESENT: normal radial pulses, normal dorsalis pedis pulses GI/Abdominal exam: PRESENT: normal bowel sounds, soft. ABSENT: guarding, mass, tenderness Rectal exam: Deferred Extremities exam: PRESENT: full ROM. Grade 1 lower extremity pitting edema ABSENT: calf tenderness Musculoskeletal: PRESENT: full ROM. ABSENT: deformity Neurological exam: PRESENT: alert, Awake, Oriented to person, Oriented to place, Oriented to time, reflexes normal, CN II-XII grossly intact. ABSENT: motor sensory deficit Psychiatric exam: PRESENT: appropriate affect, normal mood. ABSENT: homicidal ideation, suicidal ideation Skin exam: PRESENT: intact, dry, warm. ABSENT: rash Results Laboratory Results: 08/29/18 03:55 08/29/18 03:55 08/29/18 08/29/18 03:55 03:55 WBC 7.8 RBC 3.01 L Hgb 9.0 L Hct 26.0 L MCV 86 MCH 29.8 MCHC 34.5 RDW 13.7 Plt Count 274 Seg Neutrophils % 69.3 Lymphocytes % 18.8 Monocytes % 6.7 Eosinophils % 3.7 Basophils % 1.5 Absolute Neutrophils 5.4 Absolute Lymphocytes 1.5 Absolute Monocytes 0.5 Absolute Eosinophils 0.3 Absolute Basophils 0.1 Sodium 132.6 L Potassium 3.9 Chloride 97 L Carbon Dioxide 27 Anion Gap 9 BUN 48 H Creatinine 1.38 H Est GFR ( Amer) 45 L Est GFR (Non-Af Amer) 37 L Glucose 82 Calcium 8.0 L Magnesium 2.8 H Total Bilirubin 1.4 H AST 14 ALT 22 Alkaline Phosphatase 62 Total Protein 5.0 L Albumin 2.6 L 08/17/18 08/17/18 08/18/18 21:35 21:35 03:27 Creatine Kinase 28 L 29 L CK-MB (CK-2) 0.71 Troponin I 0.028 NT-Pro-B Natriuret Pep 08/18/18 08/18/18 08/18/18 03:27 09:35 09:35 Creatine Kinase 32 CK-MB (CK-2) 0.74 0.85 Troponin I 0.024 0.028 NT-Pro-B Natriuret Pep 08/19/18 08/20/18 08/26/18 05:32 05:10 05:33 Creatine Kinase CK-MB (CK-2) Troponin I 0.027 0.027 NT-Pro-B Natriuret Pep 86227 H Impressions: Cervical Spine CT 08/17/18 20:05 IMPRESSION: 1. Straightening of the cervical spine which may be secondary to positioning for the examination versus spasm. 2. Multilevel degenerative change without fracture or acute subluxation. 3. Incidentally noted severe narrowing at the level of the craniocervical junction secondary to dense pannus formation and irregularity, hypertrophy of the clivus raising the question of sequela of prior trauma, congenital etiology and/or inflammatory arthropathy. If not previously performed, follow-up evaluation with MRI may be considered. TECHNICAL DOCUMENTATION: Quality ID # [id number]: Final reports with documentation of one or more dose reduction techniques (e.g., Automated exposure control, adjustment of the mA and/or kV according to patient size, use of iterative reconstruction technique) copyright 2011 [employer]- All Rights Reserved Femur X-Ray 08/17/18 20:05 IMPRESSION: Mildly displaced intratrochanteric left femoral neck fracture. Head CT 08/17/18 20:05 IMPRESSION: 1. No acute intracranial abnormalities. Nonspecific white matter change most likely small vessel ischemic disease, age indeterminate. 2. CT is insensitive for early evaluation of acute stroke. If there is clinical concern for acute ischemia, an MRI may be considered. 3. Incidentally noted severe narrowing at the level of the craniocervical junction secondary to dense callus formation and irregularity, hypertrophy of the clivus raising the question of sequela of prior trauma, congenital etiology and/or inflammatory arthropathy. TECHNICAL DOCUMENTATION: Quality ID # [id number]: Final reports with documentation of one or more dose reduction techniques (e.g., Automated exposure control, adjustment of the mA and/or kV according to patient size, use of iterative reconstruction technique) copyright 2010 [employer]- All Rights Reserved Knee X-Ray 08/17/18 20:05 IMPRESSION: Mildly displaced intratrochanteric left femoral neck fracture. Elbow X-Ray 08/18/18 00:00 IMPRESSION: Degenerative changes involving the elbow joint, with a possible small joint effusion. copyright 2010 [employer]- All Rights Reserved Fluoroscopy 08/18/18 00:00 IMPRESSION: Limited intraoperative images of the left femur fixation obtained to evaluate or progress. Please see operative report for detailed description of procedure. Hip X-Ray 08/18/18 00:00 IMPRESSION: Limited intraoperative images of the left femur fixation obtained to evaluate or progress. Please see operative report for detailed description of procedure. Shoulder X-Ray 08/18/18 00:00 IMPRESSION: No acute fracture or malalignment. Chest X-Ray 08/21/18 06:00 IMPRESSION: Cardiomegaly without acute abnormality of the lungs in AP projection. KUB X-Ray 08/25/18 00:00 IMPRESSION: Findings consistent with constipation. Renal Ultrasound 08/27/18 00:00 IMPRESSION: 1. No hydronephrosis. 2. Mild bilateral renal cortical atrophy. 3. Incidental note of a generously distended gallbladder with sludge. Abdomen Ultrasound 08/29/18 16:00 IMPRESSION: Cholelithiasis. No evidence of acute cholecystitis. Assessment & Plan - Diagnosis (1) Acute kidney injury Is this a current diagnosis for this admission?: Yes Plan: Likely secondary to multifactorial prerenal factors including onset of hypotension, diuretics, and consider urinary retention as the patient's kidney function also improved with insertion of Sullivan catheter along with a very careful IV fluid hydration. She is a patient's kidney function is improving now I do not think she needs any more IV fluids in view of her known congestive heart failure. We will try to hold the IV fluids at this time. Continue to monitor kidney function. (2) Hyponatremia Is this a current diagnosis for this admission?: Yes Plan: This could also be secondary to intravascular volume depletion as it seems to improve with initiation of saline IV fluid hydration. Currently improved. (3) Congestive heart failure Is this a current diagnosis for this admission?: Yes Plan: Ejection fraction 25%. Status post AICD/pacemaker placement. Seems to be compensated at this time. (4) Diabetes mellitus Qualifiers: Diabetes mellitus type: type 2 Is this a current diagnosis for this admission?: Yes (5) Intertrochanteric fracture of left hip Qualifiers: Encounter type: initial encounter Fracture type: closed Fracture alignment: displaced Qualified Code(s): S72.142A - Displaced intertrochanteric fracture of left femur, initial encounter for closed fracture Is this a current diagnosis for this admission?: Yes - Notes Notes: Thank you very much for this consultation. - Time Time Spent: 50 to 70 Minutes
[2018-08-30] MEDS: INSULIN GLARGINE,HUM.REC.ANLOG 1,000 UNIT/10 ML UNIT SUBCUT SCH ×2 (06:05→17:40)
[2018-08-30 06:47] LABS: ABSOLUTE BASOPHILS # (AUTO) 0.1 10^3/uL (0.0-0.2); ABSOLUTE EOSINOPHILS # (AUTO) 0.2 10^3/uL (0.0-0.6); ABSOLUTE MONOCYTES (AUTO) 0.6 10^3/uL (0.1-1.4); ABSOLUTE NEUT (AUTO) 5.1 10^3/uL (1.7-8.2); BASOPHILS % (AUTO) 1.1 % (0-2); EOSINOPHILS % (AUTO) 2.8 % (0-6); HEMATOCRIT 27.8 % (36.0-47.0); HEMOGLOBIN 9.6 g/dL (12.0-15.5); LYMPHOCYTES % (AUTO) 14.8 % (13-45); MEAN CORPUSCULAR HGB CONC 34.6 g/dL (32.0-36.0); MEAN CORPUSCULAR VOLUME 87 fl (80-97); MONOCYTES % (AUTO) 8.4 % (3-13); PLATELET COUNT 300 10^3/uL (150-450); RED BLOOD COUNT 3.21 10^6/uL (3.72-5.28); RED CELL DISTRIBUTION WIDTH 13.5 % (11.5-14.0); SEGMENTED NEUTROPHILS % (AUTO) 72.9 % (42-78); TOTAL CELLS COUNTED % (AUTO) 100 %
[2018-08-30 07:08] LABS: ALANINE AMINOTRANSFERASE 18 U/L (9-52); ALBUMIN 2.6 g/dL (3.5-5.0); ALKALINE PHOSPHATASE 62 U/L (38-126); ANION GAP 6 (5-19); ASPARTATE AMINO TRANSFERASE 13 U/L (14-36); BILIRUBIN,DIRECT 0.3 mg/dL (0.0-0.4); BILIRUBIN,TOTAL 1.1 mg/dL (0.2-1.3); BLOOD UREA NITROGEN 31 mg/dL (7-20); CALCIUM 8.5 mg/dL (8.4-10.2); CARBON DIOXIDE 28 mmol/L (22-30); CHLORIDE 102 mmol/L (98-107); GLUCOSE 107 mg/dL (75-110); POTASSIUM 3.7 mmol/L (3.6-5.0); SODIUM 136.2 mmol/L (137-145)
[2018-08-30] MEDS: INSULIN LISPRO 100 UNIT/ML 3 ML VIAL SUBCUT SCH ×4 (07:31→21:35)
[2018-08-30] MEDS: ASPIRIN 81 MG TABLET, CHEWABLE PO SCH (09:17)
[2018-08-30] MEDS: MULTIVITAMIN TABLET PO SCH (09:17)
[2018-08-30] MEDS: DOCUSATE SODIUM 100 MG CAPSULE PO SCH ×2 (09:17→17:40)
[2018-08-30] MEDS: METOPROLOL SUCCINATE 25 MG TAB.SR.24H PO SCH ×2 (09:19→21:35)
--- NOTE | 2018-08-30 09:36 | PDOC PROGRESS REPORT ---
Subjective Progress Note for:: 08/30/18 Reason For Visit: LEFT HIP FRACTURE, DIABETES r/o cholecystitis Physical Exam Vital Signs: Temp Pulse Resp BP Pulse Ox 99.3 F 65 16 125/50 L 98 08/29/18 23:42 08/29/18 23:42 08/29/18 23:42 08/29/18 23:42 08/29/18 23:42 Intake & Output 08/29/18 08/30/18 08/31/18 06:59 06:59 06:59 Intake Total 2331 1474 Output Total 800 1680 Balance 1531 -206 Weight 69.1 kg 69.1 kg Eye exam: PRESENT: conjunctiva pink GI/Abdominal exam: PRESENT: soft - pt reexamined this am her abd is soft, there is no tenderness to deep palpation inthe upper abdomen her lower abd is soft, but some mild tenderness over her bladder in llq to deep palpation she attributes this to no bm for last 3 days Results Laboratory Results: 08/30/18 06:30 08/30/18 06:30 08/30/18 08/30/18 06:30 06:30 WBC 7.0 RBC 3.21 L Hgb 9.6 L Hct 27.8 L MCV 87 MCH 30.0 MCHC 34.6 RDW 13.5 Plt Count 300 Seg Neutrophils % 72.9 Lymphocytes % 14.8 Monocytes % 8.4 Eosinophils % 2.8 Basophils % 1.1 Absolute Neutrophils 5.1 Absolute Lymphocytes 1.0 Absolute Monocytes 0.6 Absolute Eosinophils 0.2 Absolute Basophils 0.1 Sodium 136.2 L Potassium 3.7 Chloride 102 Carbon Dioxide 28 Anion Gap 6 BUN 31 H Creatinine 0.97 Est GFR ( Amer) > 60 Est GFR (Non-Af Amer) 56 L Glucose 107 Calcium 8.5 Magnesium 2.2 Total Bilirubin 1.1 AST 13 L ALT 18 Alkaline Phosphatase 62 Total Protein 5.0 L Albumin 2.6 L 08/17/18 08/17/18 08/18/18 21:35 21:35 03:27 Creatine Kinase 28 L 29 L CK-MB (CK-2) 0.71 Troponin I 0.028 NT-Pro-B Natriuret Pep 08/18/18 08/18/18 08/18/18 03:27 09:35 09:35 Creatine Kinase 32 CK-MB (CK-2) 0.74 0.85 Troponin I 0.024 0.028 NT-Pro-B Natriuret Pep 08/19/18 08/20/18 08/26/18 05:32 05:10 05:33 Creatine Kinase CK-MB (CK-2) Troponin I 0.027 0.027 NT-Pro-B Natriuret Pep [id number] H Impressions: Cervical Spine CT 08/17/18 20:05 IMPRESSION: 1. Straightening of the cervical spine which may be secondary to positioning for the examination versus spasm. 2. Multilevel degenerative change without fracture or acute subluxation. 3. Incidentally noted severe narrowing at the level of the craniocervical junction secondary to dense pannus formation and irregularity, hypertrophy of the clivus raising the question of sequela of prior trauma, congenital etiology and/or inflammatory arthropathy. If not previously performed, follow-up evaluation with MRI may be considered. TECHNICAL DOCUMENTATION: Quality ID # 436: Final reports with documentation of one or more dose reduction techniques (e.g., Automated exposure control, adjustment of the mA and/or kV according to patient size, use of iterative reconstruction technique) copyright 2010 [employer].- All Rights Reserved Femur X-Ray 08/17/18 20:05 IMPRESSION: Mildly displaced intratrochanteric left femoral neck fracture. Head CT 08/17/18 20:05 IMPRESSION: 1. No acute intracranial abnormalities. Nonspecific white matter change most likely small vessel ischemic disease, age indeterminate. 2. CT is insensitive for early evaluation of acute stroke. If there is clinical concern for acute ischemia, an MRI may be considered. 3. Incidentally noted severe narrowing at the level of the craniocervical junction secondary to dense callus formation and irregularity, hypertrophy of the clivus raising the question of sequela of prior trauma, congenital etiology and/or inflammatory arthropathy. TECHNICAL DOCUMENTATION: Quality ID # 436: Final reports with documentation of one or more dose reduction techniques (e.g., Automated exposure control, adjustment of the mA and/or kV according to patient size, use of iterative reconstruction technique) copyright 2010 [employer].- All Rights Reserved Knee X-Ray 08/17/18 20:05 IMPRESSION: Mildly displaced intratrochanteric left femoral neck fracture. Elbow X-Ray 08/18/18 00:00 IMPRESSION: Degenerative changes involving the elbow joint, with a possible small joint effusion. copyright 2010 [employer].- All Rights Reserved Fluoroscopy 08/18/18 00:00 IMPRESSION: Limited intraoperative images of the left femur fixation obtained to evaluate or progress. Please see operative report for detailed description of procedure. Hip X-Ray 08/18/18 00:00 IMPRESSION: Limited intraoperative images of the left femur fixation obtained to evaluate or progress. Please see operative report for detailed description of procedure. Shoulder X-Ray 08/18/18 00:00 IMPRESSION: No acute fracture or malalignment. Chest X-Ray 08/21/18 06:00 IMPRESSION: Cardiomegaly without acute abnormality of the lungs in AP projection. KUB X-Ray 08/25/18 00:00 IMPRESSION: Findings consistent with constipation. Renal Ultrasound 08/27/18 00:00 IMPRESSION: 1. No hydronephrosis. 2. Mild bilateral renal cortical atrophy. 3. Incidental note of a generously distended gallbladder with sludge. Abdomen Ultrasound 08/29/18 16:00 IMPRESSION: Cholelithiasis. No evidence of acute cholecystitis. Assessment & Plan - Inpatient Certification Medical Necessity: Need Close Monitoring Due to Risk of Patient Decompensation - Plan Summary Plan Summary: I reviewed her ultrasound and labs this am she has no tenderness over her gallbladder her lft's are normal this am reviewing her ultrasound, there is no thickening no pericholecystitic fluid there are gallstones her gallbladder is not significantly dilated on the ultrasound I doubt she has acute cholecystitis suspect her lower abd pain may be due to constipation I will order a dulcolax suppository this am and fleets enema if the dulcolax is unsuccessful
[2018-08-30] MEDS ORDERED: BISACODYL 10 MG SUPP.RECT PR ONE (10:30)
--- NOTE | 2018-08-30 11:30 | PDOC PROGRESS REPORT ---
Subjective Progress Note for:: 08/30/18 Subjective:: This morning the patient was a little shaken because her dentures fell and broke apart. Otherwise the patient says she feels fine and does not really have any new complaints including chest pains no shortness of breath. There is also no abdominal pain, nausea or vomiting. Reason For Visit: LEFT HIP FRACTURE, DIABETES Physical Exam Vital Signs: Temp Pulse Resp BP Pulse Ox 99.3 F 65 16 125/50 L 98 08/29/18 23:42 08/29/18 23:42 08/29/18 23:42 08/29/18 23:42 08/29/18 23:42 Intake & Output 08/29/18 08/30/18 08/31/18 06:59 06:59 06:59 Intake Total 2331 1474 Output Total 800 1680 Balance 1531 -206 Weight 69.1 kg 69.1 kg Exam: General appearance: PRESENT: no acute distress, cooperative, well-developed, well-nourished Head exam: PRESENT: atraumatic, normocephalic Eye exam: PRESENT: conjunctiva pale, PERRLA. ABSENT: scleral icterus Neck exam: ABSENT: JVD Respiratory exam: PRESENT: Normal breath sounds. ABSENT: crackles, rales, rhonchi, unlabored, wheezes Cardiovascular exam: PRESENT: Regular rate rhythm -+S1, +S2. ABSENT: diastolic murmur, systolic murmur GI/Abdominal exam: PRESENT: normal bowel sounds, soft. ABSENT: guarding, mass, tenderness Extremities exam: Grade 1 bilateral lower extremity pitting edema Neurological exam: PRESENT: alert, awake, oriented to person, place and time. Skin exam: PRESENT: dry, warm, Results Laboratory Results: 08/30/18 06:30 08/30/18 06:30 08/30/18 08/30/18 06:30 06:30 WBC 7.0 RBC 3.21 L Hgb 9.6 L Hct 27.8 L MCV 87 MCH 30.0 MCHC 34.6 RDW 13.5 Plt Count 300 Seg Neutrophils % 72.9 Lymphocytes % 14.8 Monocytes % 8.4 Eosinophils % 2.8 Basophils % 1.1 Absolute Neutrophils 5.1 Absolute Lymphocytes 1.0 Absolute Monocytes 0.6 Absolute Eosinophils 0.2 Absolute Basophils 0.1 Sodium 136.2 L Potassium 3.7 Chloride 102 Carbon Dioxide 28 Anion Gap 6 BUN 31 H Creatinine 0.97 Est GFR ( Amer) > 60 Est GFR (Non-Af Amer) 56 L Glucose 107 Calcium 8.5 Magnesium 2.2 Total Bilirubin 1.1 AST 13 L ALT 18 Alkaline Phosphatase 62 Total Protein 5.0 L Albumin 2.6 L 08/17/18 08/17/18 08/18/18 21:35 21:35 03:27 Creatine Kinase 28 L 29 L CK-MB (CK-2) 0.71 Troponin I 0.028 NT-Pro-B Natriuret Pep 08/18/18 08/18/18 08/18/18 03:27 09:35 09:35 Creatine Kinase 32 CK-MB (CK-2) 0.74 0.85 Troponin I 0.024 0.028 NT-Pro-B Natriuret Pep 08/19/18 08/20/18 08/26/18 05:32 05:10 05:33 Creatine Kinase CK-MB (CK-2) Troponin I 0.027 0.027 NT-Pro-B Natriuret Pep [id number] H Impressions: Cervical Spine CT 08/17/18 20:05 IMPRESSION: 1. Straightening of the cervical spine which may be secondary to positioning for the examination versus spasm. 2. Multilevel degenerative change without fracture or acute subluxation. 3. Incidentally noted severe narrowing at the level of the craniocervical junction secondary to dense pannus formation and irregularity, hypertrophy of the clivus raising the question of sequela of prior trauma, congenital etiology and/or inflammatory arthropathy. If not previously performed, follow-up evaluation with MRI may be considered. TECHNICAL DOCUMENTATION: Quality ID # [id number]: Final reports with documentation of one or more dose reduction techniques (e.g., Automated exposure control, adjustment of the mA and/or kV according to patient size, use of iterative reconstruction technique) copyright 2011 [employer]- All Rights Reserved Femur X-Ray 08/17/18 20:05 IMPRESSION: Mildly displaced intratrochanteric left femoral neck fracture. Head CT 08/17/18 20:05 IMPRESSION: 1. No acute intracranial abnormalities. Nonspecific white matter change most likely small vessel ischemic disease, age indeterminate. 2. CT is insensitive for early evaluation of acute stroke. If there is clinical concern for acute ischemia, an MRI may be considered. 3. Incidentally noted severe narrowing at the level of the craniocervical junction secondary to dense callus formation and irregularity, hypertrophy of the clivus raising the question of sequela of prior trauma, congenital etiology and/or inflammatory arthropathy. TECHNICAL DOCUMENTATION: Quality ID # [id number]: Final reports with documentation of one or more dose reduction techniques (e.g., Automated exposure control, adjustment of the mA and/or kV according to patient size, use of iterative reconstruction technique) copyright 2010 [employer]- All Rights Reserved Knee X-Ray 08/17/18 20:05 IMPRESSION: Mildly displaced intratrochanteric left femoral neck fracture. Elbow X-Ray 08/18/18 00:00 IMPRESSION: Degenerative changes involving the elbow joint, with a possible small joint effusion. copyright 2010 [employer]- All Rights Reserved Fluoroscopy 08/18/18 00:00 IMPRESSION: Limited intraoperative images of the left femur fixation obtained to evaluate or progress. Please see operative report for detailed description of procedure. Hip X-Ray 08/18/18 00:00 IMPRESSION: Limited intraoperative images of the left femur fixation obtained to evaluate or progress. Please see operative report for detailed description of procedure. Shoulder X-Ray 08/18/18 00:00 IMPRESSION: No acute fracture or malalignment. Chest X-Ray 08/21/18 06:00 IMPRESSION: Cardiomegaly without acute abnormality of the lungs in AP projection. KUB X-Ray 08/25/18 00:00 IMPRESSION: Findings consistent with constipation. Renal Ultrasound 08/27/18 00:00 IMPRESSION: 1. No hydronephrosis. 2. Mild bilateral renal cortical atrophy. 3. Incidental note of a generously distended gallbladder with sludge. Abdomen Ultrasound 08/29/18 16:00 IMPRESSION: Cholelithiasis. No evidence of acute cholecystitis. Assessment & Plan - Diagnosis (1) Acute kidney injury Is this a current diagnosis for this admission?: Yes Plan: Due to multifactorial prerenal factors and urinary retention currently now resolved. If the patient's Sullivan catheter is going to be removed prior to tr ansfer to rehab, I recommend to check if the patient is making appropriate amount of urine because of possible urinary retention. (2) Hyponatremia Is this a current diagnosis for this admission?: Yes Plan: Due to intravascular volume depletion, currently resolving and improved. (3) Congestive heart failure Is this a current diagnosis for this admission?: Yes (4) Diabetes mellitus Qualifiers: Diabetes mellitus type: type 2 Is this a current diagnosis for this admission?: Yes (5) Intertrochanteric fracture of left hip Qualifiers: Encounter type: initial encounter Fracture type: closed Fracture alignment: displaced Qualified Code(s): S72.142A - Displaced intertrochanteric fracture of left femur, initial encounter for closed fracture Is this a current diagnosis for this admission?: Yes Plan: Status post pinning of the hip. - Notes Notes: From nephrology standpoint I think the patient can be safely transferred to the rehab at this point. I will sign off at this point. - Time Time with patient: 15-25 minutes
[2018-08-30] MEDS: ACETAMINOPHEN 325 MG TABLET PO PRN (15:06)
[2018-08-30] MEDS ORDERED: OXYCODONE HCL IR 5 MG TABLET PO PRN (15:24)
--- NOTE | 2018-08-30 15:29 | PDOC PROGRESS REPORT ---
Subjective Progress Note for:: 08/30/18 Subjective:: This is a 77 year old female with a past medical history of congestive heart failure, coronary artery disease, prior CABG, prior AICD placement, rheumatic heart disease, diabetes and history of recurrent falls who fell at home and sustained a minimally displaced left trochanteric femoral fracture. Patient says she fell "like she used to", that she was trying to ambulate and had recurrence of her "head spinning" like she often has and fell on the floor. Patient underwent nailing of left intertrochanteric hip fracture on 08/18/18 which was uneventful. 08/20/18: Reassumed care today. Reviewed notes. In the interim, patient had some nausea and was found to have a distended gallbladder and had work-up by surgery. She also developed acute urinary retention on 08/18/18 and a Sullivan cather was placed. No acute event overnight. She is awaiting inpatient rehab placement but is still awaiting for approval from insurance. She is stable for discharge/transfer. Reason For Visit: LEFT HIP FRACTURE, DIABETES Physical Exam Vital Signs: Temp Pulse Resp BP Pulse Ox 99.0 F 73 18 131/47 H 92 08/30/18 11:37 08/30/18 11:37 08/30/18 11:37 08/30/18 11:37 08/30/18 11:37 Intake & Output 08/29/18 08/30/18 08/31/18 06:59 06:59 06:59 Intake Total 2331 1474 237 Output Total 800 1680 290 Balance 1531 -206 -53 Weight 152 lb 5.431 oz 152 lb 5.431 oz General appearance: PRESENT: no acute distress, well-developed, well-nourished Head exam: PRESENT: atraumatic, normocephalic Eye exam: PRESENT: conjunctiva pink, EOMI, PERRLA. ABSENT: scleral icterus Ear exam: PRESENT: normal external ear exam Neck exam: ABSENT: carotid bruit, JVD, lymphadenopathy, thyromegaly Respiratory exam: PRESENT: clear to auscultation joann. ABSENT: rales, rhonchi, wheezes Cardiovascular exam: PRESENT: RRR. ABSENT: rubs Pulses: PRESENT: normal dorsalis pedis pul GI/Abdominal exam: PRESENT: normal bowel sounds, soft. ABSENT: distended, gu arding, mass, organolmegaly, rebound, tenderness Rectal exam: PRESENT: deferred Neurological exam: PRESENT: alert, awake, oriented to person, oriented to place, oriented to situation. ABSENT: oriented to time, motor sensory deficit Results Laboratory Results: 08/30/18 06:30 08/30/18 06:30 08/30/18 08/30/18 06:30 06:30 WBC 7.0 RBC 3.21 L Hgb 9.6 L Hct 27.8 L MCV 87 MCH 30.0 MCHC 34.6 RDW 13.5 Plt Count 300 Seg Neutrophils % 72.9 Lymphocytes % 14.8 Monocytes % 8.4 Eosinophils % 2.8 Basophils % 1.1 Absolute Neutrophils 5.1 Absolute Lymphocytes 1.0 Absolute Monocytes 0.6 Absolute Eosinophils 0.2 Absolute Basophils 0.1 Sodium 136.2 L Potassium 3.7 Chloride 102 Carbon Dioxide 28 Anion Gap 6 BUN 31 H Creatinine 0.97 Est GFR ( Amer) > 60 Est GFR (Non-Af Amer) 56 L Glucose 107 Calcium 8.5 Magnesium 2.2 Total Bilirubin 1.1 AST 13 L ALT 18 Alkaline Phosphatase 62 Total Protein 5.0 L Albumin 2.6 L 08/17/18 08/17/18 08/18/18 21:35 21:35 03:27 Creatine Kinase 28 L 29 L CK-MB (CK-2) 0.71 Troponin I 0.028 NT-Pro-B Natriuret Pep 08/18/18 08/18/18 08/18/18 03:27 09:35 09:35 Creatine Kinase 32 CK-MB (CK-2) 0.74 0.85 Troponin I 0.024 0.028 NT-Pro-B Natriuret Pep 08/19/18 08/20/18 08/26/18 05:32 05:10 05:33 Creatine Kinase CK-MB (CK-2) Troponin I 0.027 0.027 NT-Pro-B Natriuret Pep 79348 H Impressions: Cervical Spine CT 08/17/18 20:05 IMPRESSION: 1. Straightening of the cervical spine which may be secondary to positioning for the examination versus spasm. 2. Multilevel degenerative change without fracture or acute subluxation. 3. Incidentally noted severe narrowing at the level of the craniocervical junction secondary to dense pannus formation and irregularity, hypertrophy of the clivus raising the question of sequela of prior trauma, congenital etiology and/or inflammatory arthropathy. If not previously performed, follow-up evaluation with MRI may be considered. TECHNICAL DOCUMENTATION: Quality ID # 436: Final reports with documentation of one or more dose reduction techniques (e.g., Automated exposure control, adjustment of the mA and/or kV according to patient size, use of iterative reconstruction technique) copyright 2010 [email or web address]- All Rights Reserved Femur X-Ray 08/17/18 20:05 IMPRESSION: Mildly displaced intratrochanteric left femoral neck fracture. Head CT 08/17/18 20:05 IMPRESSION: 1. No acute intracranial abnormalities. Nonspecific white matter change most likely small vessel ischemic disease, age indeterminate. 2. CT is insensitive for early evaluation of acute stroke. If there is clinical concern for acute ischemia, an MRI may be considered. 3. Incidentally noted severe narrowing at the level of the craniocervical junction secondary to dense callus formation and irregularity, hypertrophy of the clivus raising the question of sequela of prior trauma, congenital etiology and/or inflammatory arthropathy. TECHNICAL DOCUMENTATION: Quality ID # [id number]: Final reports with documentation of one or more dose reduction techniques (e.g., Automated exposure control, adjustment of the mA and/or kV according to patient size, use of iterative reconstruction technique) copyright 2010 [email or web address]- All Rights Reserved Knee X-Ray 08/17/18 20:05 IMPRESSION: Mildly displaced intratrochanteric left femoral neck fracture. Elbow X-Ray 08/18/18 00:00 IMPRESSION: Degenerative changes involving the elbow joint, with a possible small joint effusion. copyright 2010 [email or web address]- All Rights Reserved Fluoroscopy 08/18/18 00:00 IMPRESSION: Limited intraoperative images of the left femur fixation obtained to evaluate or progress. Please see operative report for detailed description of procedure. Hip X-Ray 08/18/18 00:00 IMPRESSION: Limited intraoperative images of the left femur fixation obtained to evaluate or progress. Please see operative report for detailed description of procedure. Shoulder X-Ray 08/18/18 00:00 IMPRESSION: No acute fracture or malalignment. Chest X-Ray 08/21/18 06:00 IMPRESSION: Cardiomegaly without acute abnormality of the lungs in AP projection. KUB X-Ray 08/25/18 00:00 IMPRESSION: Findings consistent with constipation. Renal Ultrasound 08/27/18 00:00 IMPRESSION: 1. No hydronephrosis. 2. Mild bilateral renal cortical atrophy. 3. Incidental note of a generously distended gallbladder with sludge. Abdomen Ultrasound 08/29/18 16:00 IMPRESSION: Cholelithiasis. No evidence of acute cholecystitis. Assessment & Plan - Diagnosis (1) Hip fracture Qualifiers: Encounter type: initial encounter Fracture type: closed Laterality: left Qualified Code(s): S72.002A - Fracture of unspecified part of neck of left femur, initial encounter for closed fracture Is this a current diagnosis for this admission?: Yes Plan: S/P Nailing of left intertrochanteric hip fracture on 08/18/18. Awaiting placement and approval from insurance. (2) Congestive heart failure Is this a current diagnosis for this admission?: Yes Plan: Recent echo shows EF of <25%. Continue lopressor and valsartan. (3) Coronary artery disease Is this a current diagnosis for this admission?: Yes Plan: Stable. Continue aspirin. (4) Diabetes mellitus Qualifiers: Diabetes mellitus type: type 2 Is this a current diagnosis for this admission?: Yes Plan: She takes metformin at home. Continue sliding scale for now. (5) UTI (urinary tract infection) Is this a current diagnosis for this admission?: Yes Plan: Completed Rocephin. (6) Acute urinary retention Is this a current diagnosis for this admission?: Yes Plan: As mentioned, she developed retention on 08/28/18. and Sullivan was placed. Retention is likely related to opiates. Discontinue dilaudid. Discussed with patient as well. She was treated for UTI and completed antibiotics. Plan to remove Sullivan today. Only give oxycodone for pain if pain is not relieved by tylenol first. Will also start Flomax. (7) Gallbladder disease Is this a current diagnosis for this admission?: Yes Plan: Work-up including US of the GB does not show cholecystitis. No Song's sign. She does have cholelithiasis. She does not have abdominal pain at this time. Diet has been resumed by surgery. This will be followed up outpatient. (8) Acute kidney injury Is this a current diagnosis for this admission?: Yes Plan: Resolved. Likely pre renal as renal functions promptly returned to baseline with fluids. Renal US unremarkable for obstruction. - Time Time Spent with patient: 25-34 minutes
[2018-08-30] MEDS ORDERED: TAMSULOSIN HCL 0.4 MG CAP.SR.24H PO ONE (16:00)
[2018-08-30] MEDS ORDERED: NA PHOS,M-B/NA PHOS,DI-BA (ADULT) 133 ML ENEMA PR ONE (16:00)
[2018-08-30] MEDS: RIVAROXABAN 10 MG TABLET PO SCH (16:10)
[2018-08-31] MEDS: INSULIN GLARGINE,HUM.REC.ANLOG 1,000 UNIT/10 ML UNIT SUBCUT SCH ×2 (06:33→17:29)
[2018-08-31] MEDS: INSULIN LISPRO 100 UNIT/ML 3 ML VIAL SUBCUT SCH ×4 (07:49→21:19)
--- NOTE | 2018-08-31 09:51 | PDOC PROGRESS REPORT ---
Subjective Progress Note for:: 08/31/18 Subjective:: comfortable, no n/v, no abdominal pain Reason For Visit: LEFT HIP FRACTURE, DIABETES Physical Exam Vital Signs: Temp Pulse Resp BP Pulse Ox 99 F 69 12 148/52 H 93 08/31/18 08:00 08/31/18 08:00 08/31/18 08:00 08/31/18 08:00 08/31/18 08:00 Intake & Output 08/30/18 08/31/18 09/01/18 06:59 06:59 06:59 Intake Total 1474 965 Output Total 1680 290 Balance -206 675 Weight 69.1 kg 61.3 kg General appearance: PRESENT: no acute distress Respiratory exam: PRESENT: clear to auscultation joann Cardiovascular exam: PRESENT: RRR GI/Abdominal exam: PRESENT: soft Results Laboratory Results: 08/30/18 06:30 08/30/18 06:30 08/17/18 08/17/18 08/18/18 21:35 21:35 03:27 Creatine Kinase 28 L 29 L CK-MB (CK-2) 0.71 Troponin I 0.028 NT-Pro-B Natriuret Pep 08/18/18 08/18/18 08/18/18 03:27 09:35 09:35 Creatine Kinase 32 CK-MB (CK-2) 0.74 0.85 Troponin I 0.024 0.028 NT-Pro-B Natriuret Pep 08/19/18 08/20/18 08/26/18 05:32 05:10 05:33 Creatine Kinase CK-MB (CK-2) Troponin I 0.027 0.027 NT-Pro-B Natriuret Pep 49833 H Impressions: Cervical Spine CT 08/17/18 20:05 IMPRESSION: 1. Straightening of the cervical spine which may be secondary to positioning for the examination versus spasm. 2. Multilevel degenerative change without fracture or acute subluxation. 3. Incidentally noted severe narrowing at the level of the craniocervical junction secondary to dense pannus formation and irregularity, hypertrophy of the clivus raising the question of sequela of prior trauma, congenital etiology and/or inflammatory arthropathy. If not previously performed, follow-up evaluation with MRI may be considered. TECHNICAL DOCUMENTATION: Quality ID # [id number]: Final reports with documentation of one or more dose reduction techniques (e.g., Automated exposure control, adjustment of the mA and/or kV according to patient size, use of iterative reconstruction technique) copyright 2010 [employer]- All Rights Reserved Femur X-Ray 08/17/18 20:05 IMPRESSION: Mildly displaced intratrochanteric left femoral neck fracture. Head CT 08/17/18 20:05 IMPRESSION: 1. No acute intracranial abnormalities. Nonspecific white matter change most likely small vessel ischemic disease, age indeterminate. 2. CT is insensitive for early evaluation of acute stroke. If there is clinical concern for acute ischemia, an MRI may be considered. 3. Incidentally noted severe narrowing at the level of the craniocervical junction secondary to dense callus formation and irregularity, hypertrophy of the clivus raising the question of sequela of prior trauma, congenital etiology and/or inflammatory arthropathy. TECHNICAL DOCUMENTATION: Quality ID # [id number]: Final reports with documentation of one or more dose reduction techniques (e.g., Automated exposure control, adjustment of the mA and/or kV according to patient size, use of iterative reconstruction technique) copyright 2010 [employer]- All Rights Reserved Knee X-Ray 08/17/18 20:05 IMPRESSION: Mildly displaced intratrochanteric left femoral neck fracture. Elbow X-Ray 08/18/18 00:00 IMPRESSION: Degenerative changes involving the elbow joint, with a possible small joint effusion. copyright 2010 [employer]- All Rights Reserved Fluoroscopy 08/18/18 00:00 IMPRESSION: Limited intraoperative images of the left femur fixation obtained to evaluate or progress. Please see operative report for detailed description of procedure. Hip X-Ray 08/18/18 00:00 IMPRESSION: Limited intraoperative images of the left femur fixation obtained to evaluate or progress. Please see operative report for detailed description of procedure. Shoulder X-Ray 08/18/18 00:00 IMPRESSION: No acute fracture or malalignment. Chest X-Ray 08/21/18 06:00 IMPRESSION: Cardiomegaly without acute abnormality of the lungs in AP projection. KUB X-Ray 08/25/18 00:00 IMPRESSION: Findings consistent with constipation. Renal Ultrasound 08/27/18 00:00 IMPRESSION: 1. No hydronephrosis. 2. Mild bilateral renal cortical atrophy. 3. Incidental note of a generously distended gallbladder with sludge. Abdomen Ultrasound 08/29/18 16:00 IMPRESSION: Cholelithiasis. No evidence of acute cholecystitis. Assessment & Plan - Plan Summary Plan Summary: A/ asymptomatic cholelithiasis abdominal exam unremarkable diet tolerated P/ No acute General Surgery issues identified No surgical intervention contemplated I will sign off, please call me with questions.
[2018-08-31] MEDS: MULTIVITAMIN TABLET PO SCH (10:15)
[2018-08-31] MEDS: METOPROLOL SUCCINATE 25 MG TAB.SR.24H PO SCH ×2 (10:15→21:19)
[2018-08-31] MEDS: DOCUSATE SODIUM 100 MG CAPSULE PO SCH ×2 (10:15→17:29)
[2018-08-31] MEDS: ASPIRIN 81 MG TABLET, CHEWABLE PO SCH (10:15)
[2018-08-31] MEDS: ACETAMINOPHEN 325 MG TABLET PO PRN ×2 (12:05→16:41)
--- NOTE | 2018-08-31 15:06 | PDOC PROGRESS REPORT ---
Subjective Progress Note for:: 08/31/18 Subjective:: This is a 77 year old female with a past medical history of congestive heart failure, coronary artery disease, prior CABG, prior AICD placement, rheumatic heart disease, diabetes and history of recurrent falls who fell at home and sustained a minimally displaced left trochanteric femoral fracture. Patient says she fell "like she used to", that she was trying to ambulate and had recurrence of her "head spinning" like she often has and fell on the floor. Patient underwent nailing of left intertrochanteric hip fracture on 08/18/18 which was uneventful. : Reassumed care today. Reviewed notes. In the interim, patient had some nausea and was found to have a distended gallbladder and had work-up by surgery. She also developed acute urinary retention on 08/18/18 and a Sullivan cather was placed but subsequently removed as she has been treated for UTI on this ad mission as well. 08/31/18: No acute event overnight. She is still awaiting inpatient rehab placement but is still awaiting for approval from insurance. She is stable for discharge/transfer. She developed urinary retention likely related to opiates and she is requiring straight catheterizations. Reason For Visit: LEFT HIP FRACTURE, DIABETES Physical Exam Vital Signs: Temp Pulse Resp BP Pulse Ox 99.3 F 68 16 142/52 H 94 08/31/18 11:31 08/31/18 11:31 08/31/18 11:31 08/31/18 11:31 08/31/18 11:31 Intake & Output 08/30/18 08/31/18 09/01/18 06:59 06:59 06:59 Intake Total 1474 965 Output Total 1680 290 550 Balance -206 675 -550 Weight 152 lb 5.431 oz 135 lb 2.294 oz General appearance: PRESENT: no acute distress, well-developed, well-nourished Head exam: PRESENT: atraumatic, normocephalic Eye exam: PRESENT: conjunctiva pink, EOMI, PERRLA. ABSENT: scleral icterus Ear exam: PRESENT: normal external ear exam Mouth exam: PRESENT: moist, tongue midline Neck exam: ABSENT: carotid bruit, JVD, lymphadenopathy, thyromegaly Respiratory exam: PRESENT: clear to auscultation joann. ABSENT: rales, rhonchi, wheezes Cardiovascular exam: PRESENT: RRR. ABSENT: diastolic murmur, rubs, systolic murmur Pulses: PRESENT: normal dorsalis pedis pul GI/Abdominal exam: PRESENT: normal bowel sounds, soft. ABSENT: distended, guarding, mass, organolmegaly, rebound, tenderness Rectal exam: PRESENT: deferred Neurological exam: PRESENT: alert, awake, oriented to person, oriented to place, oriented to situation, CN II-XII grossly intact. ABSENT: motor sensory deficit Results Laboratory Results: 08/30/18 06:30 08/30/18 06:30 08/17/18 08/17/18 08/18/18 21:35 21:35 03:27 Creatine Kinase 28 L 29 L CK-MB (CK-2) 0.71 Troponin I 0.028 NT-Pro-B Natriuret Pep 08/18/18 08/18/18 08/18/18 03:27 09:35 09:35 Creatine Kinase 32 CK-MB (CK-2) 0.74 0.85 Troponin I 0.024 0.028 NT-Pro-B Natriuret Pep 08/19/18 08/20/18 08/26/18 05:32 05:10 05:33 Creatine Kinase CK-MB (CK-2) Troponin I 0.027 0.027 NT-Pro-B Natriuret Pep [id number] H Impressions: Cervical Spine CT 08/17/18 20:05 IMPRESSION: 1. Straightening of the cervical spine which may be secondary to positioning for the examination versus spasm. 2. Multilevel degenerative change without fracture or acute subluxation. 3. Incidentally noted severe narrowing at the level of the craniocervical junction secondary to dense pannus formation and irregularity, hypertrophy of the clivus raising the question of sequela of prior trauma, congenital etiology and/or inflammatory arthropathy. If not previously performed, follow-up evaluation with MRI may be considered. TECHNICAL DOCUMENTATION: Quality ID # [id number]: Final reports with documentation of one or more dose reduction techniques (e.g., Automated exposure control, adjustment of the mA and/or kV according to patient size, use of iterative reconstruction technique) copyright 2011 [employer]- All Rights Reserved Femur X-Ray 08/17/18 20:05 IMPRESSION: Mildly displaced intratrochanteric left femoral neck fracture. Head CT 08/17/18 20:05 IMPRESSION: 1. No acute intracranial abnormalities. Nonspecific white matter change most likely small vessel ischemic disease, age indeterminate. 2. CT is insensitive for early evaluation of acute stroke. If there is clinical concern for acute ischemia, an MRI may be considered. 3. Incidentally noted severe narrowing at the level of the craniocervical junction secondary to dense callus formation and irregularity, hypertrophy of the clivus raising the question of sequela of prior trauma, congenital etiology and/or inflammatory arthropathy. TECHNICAL DOCUMENTATION: Quality ID # [id number]: Final reports with documentation of one or more dose reduction techniques (e.g., Automated exposure control, adjustment of the mA and/or kV according to patient size, use of iterative reconstruction technique) copyright 2010 [employer]- All Rights Reserved Knee X-Ray 08/17/18 20:05 IMPRESSION: Mildly displaced intratrochanteric left femoral neck fracture. Elbow X-Ray 08/18/18 00:00 IMPRESSION: Degenerative changes involving the elbow joint, with a possible small joint effusion. copyright 2011 [employer]- All Rights Reserved Fluoroscopy 08/18/18 00:00 IMPRESSION: Limited intraoperative images of the left femur fixation obtained to evaluate or progress. Please see operative report for detailed description of procedure. Hip X-Ray 08/18/18 00:00 IMPRESSION: Limited intraoperative images of the left femur fixation obtained to evaluate or progress. Please see operative report for detailed description of procedure. Shoulder X-Ray 08/18/18 00:00 IMPRESSION: No acute fracture or malalignment. Chest X-Ray 08/21/18 06:00 IMPRESSION: Cardiomegaly without acute abnormality of the lungs in AP projection. KUB X-Ray 08/25/18 00:00 IMPRESSION: Findings consistent with constipation. Renal Ultrasound 08/27/18 00:00 IMPRESSION: 1. No hydronephrosis. 2. Mild bilateral renal cortical atrophy. 3. Incidental note of a generously distended gallbladder with sludge. Abdomen Ultrasound 08/29/18 16:00 IMPRESSION: Cholelithiasis. No evidence of acute cholecystitis. Assessment & Plan - Diagnosis (1) Hip fracture Qualifiers: Encounter type: initial encounter Fracture type: closed Laterality: left Qualified Code(s): S72.002A - Fracture of unspecified part of neck of left femur, initial encounter for closed fracture Is this a current diagnosis for this admission?: Yes Plan: S/P Nailing of left intertrochanteric hip fracture on 08/18/18. Still awaiting placement and approval from insurance. (2) Congestive heart failure Is this a current diagnosis for this admission?: Yes Plan: Recent echo shows EF of <25%. Continue lopressor and valsartan. (3) Coronary artery disease Is this a current diagnosis for this admission?: Yes Plan: Stable. Continue aspirin. (4) Diabetes mellitus Qualifiers: Diabetes mellitus type: type 2 Is this a current diagnosis for this admission?: Yes Plan: She takes metformin at home. Continue sliding scale for now. (5) UTI (urinary tract infection) Is this a current diagnosis for this admission?: Yes Plan: Completed Rocephin. (6) Acute urinary retention Is this a current diagnosis for this admission?: Yes Plan: As mentioned, she developed retention on 08/28/18. and Sullivan was placed. Retention is likely related to opiates. Discontinued dilaudid. Sullivan removed. Only give oxycodone for pain if pain is not relieved by tylenol first. Continue Flomax. Continue bladder scanning and straight catheterization as needed. (7) Gallbladder disease Is this a current diagnosis for this admission?: Yes Plan: Work-up including US of the GB does not show cholecystitis. No Song's sign. She does have cholelithiasis. She does not have abdominal pain at this time. Diet has been resumed by surgery. This will be followed up outpatient. (8) Acute kidney injury Is this a current diagnosis for this admission?: Yes Plan: Resolved. Likely pre renal as renal functions promptly returned to baseline with fluids. Renal US unremarkable for obstruction. - Time Time Spent with patient: 15-24 minutes
[2018-08-31] MEDS: RIVAROXABAN 10 MG TABLET PO SCH (17:29)
[2018-09-01] MEDS: ACETAMINOPHEN 325 MG TABLET PO PRN ×3 (00:24→17:41)
[2018-09-01] MEDS: INSULIN GLARGINE,HUM.REC.ANLOG 1,000 UNIT/10 ML UNIT SUBCUT SCH ×2 (06:10→17:41)
[2018-09-01] MEDS: METOPROLOL SUCCINATE 25 MG TAB.SR.24H PO SCH (09:45)
[2018-09-01] MEDS: DOCUSATE SODIUM 100 MG CAPSULE PO SCH ×2 (09:46→17:41)
[2018-09-01] MEDS: MULTIVITAMIN TABLET PO SCH (09:46)
[2018-09-01] MEDS: ASPIRIN 81 MG TABLET, CHEWABLE PO SCH (09:46)
[2018-09-01] MEDS: MAGNESIUM HYDROXIDE SUSP 30 ML UDCUP PO PRN (09:49)
[2018-09-01] MEDS: INSULIN LISPRO 100 UNIT/ML 3 ML VIAL SUBCUT SCH ×2 (10:09→16:56)
--- NOTE | 2018-09-01 12:23 | PDOC TRANSFER SUMMARY ---
General - Admit/Disc Date/PCP Admission Date/Primary Care Provider: 08/17/18 22:20 YAMILKA EPSTEIN MD Discharge Date: 09/01/18 - Discharge Diagnosis (1) Hip fracture Is this a current diagnosis for this admission?: Yes (2) Congestive heart failure Is this a current diagnosis for this admission?: Yes (3) Coronary artery disease Is this a current diagnosis for this admission?: Yes (4) Diabetes mellitus Is this a current diagnosis for this admission?: Yes (5) UTI (urinary tract infection) Is this a current diagnosis for this admission?: Yes (6) Acute urinary retention Is this a current diagnosis for this admission?: Yes (7) Gallbladder disease Is this a current diagnosis for this admission?: Yes (8) Acute kidney injury Is this a current diagnosis for this admission?: Yes - Additional Information Resuscitation Status: Full Code Prescriptions: Aspirin [Aspirin 81 mg Chewable Tablet] 81 mg PO DAILY #60 tab.chew Atorvastatin Calcium [Lipitor 20 mg Tablet] 20 mg PO QHS #30 tablet Losartan Potassium [Cozaar] 25 mg PO DAILY #30 tablet Metoprolol Succinate [Toprol Xl 25 mg Tab.sr] 25 mg PO Q12 #60 tab.sr.24h Rivaroxaban [Xarelto 10 mg Tablet] 10 mg PO WSUPPER #15 tablet Tamsulosin HCl [Flomax 0.4 mg Cap.sr] 0.4 mg PO PCSUPPER #30 cap.sr.24h Home Medications: Metformin HCl [Glucophage 500 mg Tablet] 1,000 mg PO BID 08/18/18 Multivitamin [One-Daily Multi-Vitamin] 1 each PO DAILY 08/18/18 Acetaminophen [Tylenol 325 mg Tablet] 650 mg PO Q4HP PRN tablet 09/01/18 Aspirin [Aspirin 81 mg Chewable Tablet] 81 mg PO DAILY #60 tab.chew 09/01/18 Atorvastatin Calcium [Lipitor 20 mg Tablet] 20 mg PO QHS #30 tablet 09/01/18 Docusate Sodium [Colace 100 mg Capsule] 100 mg PO BID #0 capsule 09/01/18 Losartan Potassium [Cozaar] 25 mg PO DAILY #30 tablet 09/01/18 Metoprolol Succinate [Toprol Xl 25 mg Tab.sr] 25 mg PO Q12 #60 tab.sr.24h 09/01/18 Rivaroxaban [Xarelto 10 mg Tablet] 10 mg PO WSUPPER #15 tablet 09/01/18 Tamsulosin HCl [Flomax 0.4 mg Cap.sr] 0.4 mg PO PCSUPPER #30 cap.sr.24h 09/01/18 History of Present Illness Admission Date/PCP: 08/17/18 22:20 YAMILKA EPSTEIN MD History of Present Illness: Admitting hospitalist's H&P: VALE SOTO is a 77 year old female with a past medical history of congestive heart failure, coronary artery disease, rheumatic heart disease, permanent pacemaker, diabetes and dizziness with recurrent falls. Patient presents after a fall at home after feeling dizzy she fell to her left side and was unable to stand or bear weight. She denies recent change of medication, focal weakness, loss of consciousness, headache, blurred vision, nausea or vomiting. In the emergency room she is found to have a minimally displaced left trochanteric femoral fracture and referred to the hospitalist for admission. Hospital Course Hospital Course: This is a 77 year old female with a past medical history of congestive heart failure, coronary artery disease, prior CABG, prior AICD placement, rheumatic heart disease, diabetes and history of recurrent falls who fell at home and sustained a minimally displaced left trochanteric femoral fracture. Patient says she fell "like she used to", that she was trying to ambulate and had recurrence of her "head spinning" like she often has and fell on the floor. She has a known CHF and CAD but appears to be not on medications for both cardiac issues. She was seen by cardiology. She had an echo which showed an EF of 25%. She was started on lopressor and valsartan and aspirin. Patient underwent nailing of left intertrochanteric hip fracture on 08/18/18 which was uneventful. She was started on Xarelto by ortho for post surgical DVT prophylaxis. She did have UTI and completed IV Rocephin. She was getting oxycodone prn for pain and was later placed on dilaudid when made NPO due to questionable gallbladder disease. She developed acute urinary retention on 08/28/18 and Sullivan was placed. Renal US was unremarkable. Retention is likely related to opiates. Discontinued dilaudid. Sullivan was removed and oxycodone was only given for pain if pain is not relieved by tylenol first. Continued bladder scanning and straight catheterization as needed. She was also started on Flomax. She will also need outpatient urology appointment. She developed some nausea which eventually resolved and was found to have a distended gallbladder and had work-up by surgery. Work-up including US of the GB does not show cholecystitis. No Song's sign. She does have cholelithiasis. She does not have abdominal pain at this time. Diet was resumed by surgery and no there was no indication for surgical intervention. This will be followed up outpatient. Her stay was prolonged awaiting insurance approval for SNF/rehab placement. She will need 15 more days of Xarelto for post orthopedic surgery prophylaxis. Physical Exam Vital Signs: Temp Pulse Resp BP Pulse Ox 98.2 F 71 14 147/51 H 95 09/01/18 08:34 09/01/18 08:34 09/01/18 08:34 09/01/18 08:34 09/01/18 08:34 Intake & Output 08/31/18 09/01/18 09/02/18 06:59 06:59 06:59 Intake Total 965 340 Output Total 290 1835 Balance 675 -1495 Weight 135 lb 2.294 oz 153 lb 10.595 oz General appearance: PRESENT: no acute distress, well-developed, well-nourished Head exam: PRESENT: atraumatic, normocephalic Eye exam: PRESENT: conjunctiva pink, EOMI, PERRLA. ABSENT: scleral icterus Ear exam: PRESENT: normal external ear exam Mouth exam: PRESENT: moist, tongue midline Neck exam: ABSENT: carotid bruit, JVD, lymphadenopathy, thyromegaly Respiratory exam: PRESENT: clear to auscultation joann. ABSENT: rales, rhonchi, wheezes Cardiovascular exam: PRESENT: RRR. ABSENT: diastolic murmur, rubs, systolic murmur Pulses: PRESENT: normal dorsalis pedis pul GI/Abdominal exam: PRESENT: normal bowel sounds, soft. ABSENT: distended, guarding, mass, organolmegaly, rebound, tenderness Rectal exam: PRESENT: deferred Extremities exam: PRESENT: full ROM. ABSENT: calf tenderness, clubbing, pedal edema Neurological exam: PRESENT: alert, awake, oriented to person, oriented to place, oriented to situation, CN II-XII grossly intact. ABSENT: oriented to time, motor sensory deficit Results Laboratory Results: 08/30/18 06:30 08/30/18 06:30 08/17/18 08/17/18 08/18/18 21:35 21:35 03:27 Creatine Kinase 28 L 29 L CK-MB (CK-2) 0.71 Troponin I 0.028 NT-Pro-B Natriuret Pep 08/18/18 08/18/18 08/18/18 03:27 09:35 09:35 Creatine Kinase 32 CK-MB (CK-2) 0.74 0.85 Troponin I 0.024 0.028 NT-Pro-B Natriuret Pep 08/19/18 08/20/18 08/26/18 05:32 05:10 05:33 Creatine Kinase CK-MB (CK-2) Troponin I 0.027 0.027 NT-Pro-B Natriuret Pep 47194 H Impressions: Cervical Spine CT 08/17/18 20:05 IMPRESSION: 1. Straightening of the cervical spine which may be secondary to positioning for the examination versus spasm. 2. Multilevel degenerative change without fracture or acute subluxation. 3. Incidentally noted severe narrowing at the level of the craniocervical junction secondary to dense pannus formation and irregularity, hypertrophy of the clivus raising the question of sequela of prior trauma, congenital etiology and/or inflammatory arthropathy. If not previously performed, follow-up evaluation with MRI may be considered. TECHNICAL DOCUMENTATION: Quality ID # 436: Final reports with documentation of one or more dose reduction techniques (e.g., Automated exposure control, adjustment of the mA and/or kV according to patient size, use of iterative reconstruction technique) copyright 2011 [employer]- All Rights Reserved Femur X-Ray 08/17/18 20:05 IMPRESSION: Mildly displaced intratrochanteric left femoral neck fracture. Head CT 08/17/18 20:05 IMPRESSION: 1. No acute intracranial abnormalities. Nonspecific white matter change most likely small vessel ischemic disease, age indeterminate. 2. CT is insensitive for early evaluation of acute stroke. If there is clinical concern for acute ischemia, an MRI may be considered. 3. Incidentally noted severe narrowing at the level of the craniocervical junction secondary to dense callus formation and irregularity, hypertrophy of the clivus raising the question of sequela of prior trauma, congenital etiology and/or inflammatory arthropathy. TECHNICAL DOCUMENTATION: Quality ID # 436: Final reports with documentation of one or more dose reduction techniques (e.g., Automated exposure control, adjustment of the mA and/or kV according to patient size, use of iterative reconstruction technique) copyright 2010 [employer]- All Rights Reserved Knee X-Ray 08/17/18 20:05 IMPRESSION: Mildly displaced intratrochanteric left femoral neck fracture. Elbow X-Ray 08/18/18 00:00 IMPRESSION: Degenerative changes involving the elbow joint, with a possible small joint effusion. copyright 2010 [employer]- All Rights Reserved Fluoroscopy 08/18/18 00:00 IMPRESSION: Limited intraoperative images of the left femur fixation obtained to evaluate or progress. Please see operative report for detailed description of procedure. Hip X-Ray 08/18/18 00:00 IMPRESSION: Limited intraoperative images of the left femur fixation obtained to evaluate or progress. Please see operative report for detailed description of procedure. Shoulder X-Ray 08/18/18 00:00 IMPRESSION: No acute fracture or malalignment. Chest X-Ray 08/21/18 06:00 IMPRESSION: Cardiomegaly without acute abnormality of the lungs in AP projection. KUB X-Ray 08/25/18 00:00 IMPRESSION: Findings consistent with constipation. Renal Ultrasound 08/27/18 00:00 IMPRESSION: 1. No hydronephrosis. 2. Mild bilateral renal cortical atrophy. 3. Incidental note of a generously distended gallbladder with sludge. Abdomen Ultrasound 08/29/18 16:00 IMPRESSION: Cholelithiasis. No evidence of acute cholecystitis. Transfer Plan - Time Spent with Patient Time spent with patient: Less than 30 Minutes Qualifiers - * PATIENT BEING DISCHARGED WITH ANY OF THE FOLLOWING DIAGNOSIS: Heart Failure Stroke Pt being discharged on Statins?: Yes GA Pt being discharged on Aspirin therapy?: Yes HF Pt being discharged on ACEI for LVEF less than 40%?: Yes HF Pt being discharged on ARBS for LVEF less than 40%?: Yes HF Pt with Afib discharged with Warfarin?: No Reason(s) for not prescribing Warfarin:: Not indicated HF Pt discharged on evidence-based Beta Manuela:: Yes
[2018-09-01 12:58] VITALS: BP 131/52
[2018-09-01] MEDS: RIVAROXABAN 10 MG TABLET PO SCH (17:42)
[2018-09-01] MEDS ORDERED: TAMSULOSIN HCL 0.4 MG CAP.SR.24H PO SCH (18:00)
== END 2018-09-01 18:30 | DRG 481 ==
LOC: ER 19:20 → EH 22:20 → 4S 08-18 00:01
PROVIDERS: ADMIT Internal Medicine; ATTEND Internal Medicine
PROC: 0QS736Z Reposition Left Upper Femur with Intramedullary Internal Fixation Device, Percutaneous Approach (ICD-10-PCS; principal; 2018-08-18 15:30)
PROC: 30233N1 Transfusion of Nonautologous Red Blood Cells into Peripheral Vein, Percutaneous Approach (ICD-10-PCS; 2018-08-28)
DX: S72.142A Displaced intertrochanteric fracture of left femur, initial encounter for closed fracture (principal); I50.22 Chronic systolic (congestive) heart failure; N39.0 Urinary tract infection, site not specified; N17.9 Acute kidney failure, unspecified; E87.1 Hypo-osmolality and hyponatremia; W18.30XA Fall on same level, unspecified, initial encounter; I11.0 Hypertensive heart disease with heart failure; Y92.009 Unspecified place in unspecified non-institutional (private) residence as the place of occurrence of the external cause; I09.9 Rheumatic heart disease, unspecified; I25.5 Ischemic cardiomyopathy; E11.9 Type 2 diabetes mellitus without complications; R33.9 Retention of urine, unspecified; K80.20 Calculus of gallbladder without cholecystitis without obstruction; I25.10 Atherosclerotic heart disease of native coronary artery without angina pectoris; Z79.84 Long term (current) use of oral hypoglycemic drugs; Z95.810 Presence of automatic (implantable) cardiac defibrillator; I25.2 Old myocardial infarction; Z95.1 Presence of aortocoronary bypass graft; Z91.81 History of falling; Z79.82 Long term (current) use of aspirin; Z79.899 Other long term (current) drug therapy
CPT/HCPCS: 01230; 36415; 36430; 70450; 71045; 72125; 74018; 76705; 76770; 80048; 80053; 80061; 81001; 82550; 82553; 82962; 83036; 83735; 83880; 84132; 84484; 85025; 85027; 85610; 85730; 86850; 86900; 86901; 86920; 87040; 93005; 93010; 93306; 94799; 99285; C1713; J0690; J0696; J1170; J1644; J1815; J2250; J2270; J2405; J2704; J3010; J3490; J7030; J7120; L0172; P9016

== ENCOUNTER 2018-11-08 03:00 | Inpatient (IN) | payer MEDICARE ==
--- NOTE | 2018-11-08 03:17 | ER Document Report ---
ED General - General Stated Complaint: CHEST PAIN Time Seen by Provider: 11/08/18 03:10 Primary Care Provider: YAZAN CASH MD [NO LOCAL MD] - Follow up as needed Notes: Patient is a 77-year-old female presents with complaint of chest pressure. She also feels short of breath whenever she laid flat. She said she took some nitro home which did help. Paramedics arrived and given more nitro now her pressure is relieved. She says she feels well sitting up. She has no chest pressure or difficulty breathing at this time being she is sitting up in the bed. She does have a history of heart failure. She does have history of DC. She has a history of coronary bypass surgery that she says was done approximately 5 years ago. 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 She does have a pacemaker fibrillator. She has not been shocked by it. She has no other complaints at this time. TRAVEL OUTSIDE OF THE [place] IN LAST 30 DAYS: No - Related Data Allergies/Adverse Reactions: No Known Allergies Allergy (Verified 08/17/18 19:38) Past Medical History - Social History Smoking Status: Unknown if Ever Smoked Frequency of alcohol use: None Drug Abuse: None Family History: Hypertension - Past Medical History Cardiac Medical History: Reports: Hx Coronary Artery Disease, Hx Heart Attack Endocrine Medical History: Reports: Hx Diabetes Mellitus Type 2 Renal/ Medical History: Denies: Hx Peritoneal Dialysis Psychiatric Medical History: Denies: Hx Depression Past Surgical History: Reports: Hx Cardiac Surgery - pace/defib, Hx Pacemaker - AICD combination Review of Systems - Review of Systems Notes: My Normal Review Basic REVIEW OF SYSTEMS: CONSTITUTIONAL : Denies fever, chills, or sweats. Denies recent illness. EENT: Denies eye, ear, throat, or mouth pain or symptoms. Denies nasal or sinus congestion. CARDIOVASCULAR: Chest pressure resolved with nitro. RESPIRATORY: Difficulty breathing when lying flat. GASTROINTESTINAL: Denies abdominal pain. Denies nausea, vomiting, or diarrhea. Denies constipation. Last BM: GENITOURINARY: Denies difficulty urinating, painful urination, burning, frequency, or blood in urine. MUSCULOSKELETAL: Denies neck or back pain or joint pain or swelling. SKIN: Denies rash or skin lesions. NEUROLOGICAL: Denies altered mental status or loss of consciousness. Denies headache. Denies weakness or paralysis or loss of use of either side. Denies problems with gait or speech. Denies sensory or motor loss. ALL OTHER SYSTEMS REVIEWED AND NEGATIVE. Physical Exam - Vital signs Vitals: Pulse Ox 96 11/08/18 03:04 - Notes Notes: General Appearance: Well nourished, alert, cooperative, no acute distress, no obvious discomfort. Vitals: reviewed, See vital signs table. Eyes: PERRL, EOMI, Conjuctiva clear Mouth: No decreasd moisture Throat: No tonsillar inflammation, No airway obstruction, No lymphadenopathy Neck: Supple, no neck tenderness, No thyromegaly Lungs: No wheezing, bibasilar rales, No rhonci, No accessory muscle use, good air exchange bilaterally. Heart: Normal rate, Regular rythm, No murmur, no rub Abdomen: Normal BS, soft, No rigidity, No abdominal tenderness, No guarding, no rebound, no abdominal masses, no organomegaly Extremities: no edema. Skin: warm, dry, appropriate color, no rash Neuro: speech clear, oriented x 3, normal affect, responds appropriately to questions. Course - Re-evaluation Re-evalutation: 11/08/18 05:02 Patient has chest pressure with congestive heart failure. She does have fluid in her lungs which is likely why she short of breath when she laid flat. Nitro did relieve her chest pressure. I placed Nitropaste on her and she continues to be chest pain-free. BNP is significantly elevated over 34,000. This is higher than even her baseline. Troponin is within normal range. At this time I feel the patient does require admission due to need for diuresis and treatment of her heart failure as well as trending troponin. I did discuss this with the patient and family and they are agreeable to it. I did discuss case with the hospitalist, Dr. Christiansen, who agrees to evaluate the patient for admission. Patient not given aspirin here in the ER as she already received it in the ambulance. Dictation of this chart was performed using voice recognition software; therefore, there may be some unintended grammatical errors. 11/08/18 05:35 - Vital Signs Vital signs: Temp Pulse Resp BP Pulse Ox 97.9 F 22 H 137/82 H 88 L 11/08/18 03:18 11/08/18 05:01 11/08/18 05:01 11/08/18 05:01 - Laboratory Result Diagrams: 11/08/18 03:10 11/08/18 03:10 Laboratory results interpreted by me: 11/08/18 11/08/18 11/08/18 03:10 03:10 03:10 RBC 3.29 L Hgb 10.0 L Hct 29.2 L RDW 16.2 H Carbon Dioxide 20 L Est GFR (Non-Af Amer) 55 L Glucose 133 H Total Bilirubin 1.7 H NT-Pro-B Natriuret Pep 58596 H Total Protein 6.0 L - EKG Interpretation by Me Additional EKG results interpreted by me: 11/08/18 03:16 EKG is reviewed and interpreted by me. EKG shows paced rhythm with a rate of [address] segment elevation. Patient does have some T wave inversions in the anterior and lateral leads which are unchanged comparison to her previous EKG from August 19, 2018. MO interval is within normal range. QRS duration QT intervals are prolonged. Discharge - Discharge Clinical Impression: CHF (congestive heart failure), Chest pain Condition: Stable Disposition: ADMITTED OBSERVATION Admitting Provider: Hospitalist Unit Admitted: Telemetry Referrals: YAZAN CASH MD [NO LOCAL MD] - Follow up as needed
[2018-11-08] MEDS ORDERED: NITROGLYCERIN 2% OINTMENT 1 GM PACKET TP ONE (03:21)
[2018-11-08 03:33] LABS: ABSOLUTE BASOPHILS # (AUTO) 0.1 10^3/uL (0.0-0.2); ABSOLUTE EOSINOPHILS # (AUTO) 0.2 10^3/uL (0.0-0.6); ABSOLUTE LYMPHOCYTES (AUTO) 2.1 10^3/uL (0.5-4.7); ABSOLUTE MONOCYTES (AUTO) 0.5 10^3/uL (0.1-1.4); ABSOLUTE NEUT (AUTO) 3.8 10^3/uL (1.7-8.2); BASOPHILS % (AUTO) 1.4 % (0-2); EOSINOPHILS % (AUTO) 3.7 % (0-6); HEMATOCRIT 29.2 % (36.0-47.0); LYMPHOCYTES % (AUTO) 31.4 % (13-45); MEAN CORPUSCULAR HEMOGLOBIN 30.3 pg (27.0-33.4); MEAN CORPUSCULAR HGB CONC 34.2 g/dL (32.0-36.0); MEAN CORPUSCULAR VOLUME 89 fl (80-97); MONOCYTES % (AUTO) 7.1 % (3-13); PLATELET COUNT 196 10^3/uL (150-450); RED BLOOD COUNT 3.29 10^6/uL (3.72-5.28); RED CELL DISTRIBUTION WIDTH 16.2 % (11.5-14.0); SEGMENTED NEUTROPHILS % (AUTO) 56.4 % (42-78); TOTAL CELLS COUNTED % (AUTO) 100 %; WHITE BLOOD COUNT 6.8 10^3/uL (4.0-10.5)
[2018-11-08 03:50] LABS: ALANINE AMINOTRANSFERASE 16 U/L (9-52); ALBUMIN 3.5 g/dL (3.5-5.0); ALKALINE PHOSPHATASE 62 U/L (38-126); ANION GAP 12 (5-19); ASPARTATE AMINO TRANSFERASE 17 U/L (14-36); BILIRUBIN,DIRECT 0.3 mg/dL (0.0-0.4); BILIRUBIN,TOTAL 1.7 mg/dL (0.2-1.3); BLOOD UREA NITROGEN 17 mg/dL (7-20); CALCIUM 9.7 mg/dL (8.4-10.2); CARBON DIOXIDE 20 mmol/L (22-30); CHLORIDE 107 mmol/L (98-107); GLUCOSE 133 mg/dL (75-110); POTASSIUM 3.8 mmol/L (3.6-5.0); SODIUM 139.4 mmol/L (137-145)
[2018-11-08 04:02] LABS: TROPONIN I 0.024 ng/mL
--- NOTE | 2018-11-08 04:11 | RADIOLOGY REPORT (SQ) ---
EXAM DESCRIPTION: XR CHEST 1 VIEW COMPLETED DATE/TME: 11/08/2018 03:21 CLINICAL HISTORY: 77 years Female, dyspnea COMPARISON: One day prior. NUMBER OF VIEWS/TECHNIQUE: 1/AP FINDINGS: Small left basilar opacity-effusion, small hazy opacity-effusion of the right lung base, and normal cardiac silhouette. No pneumothorax. Stable bony thorax.Sternotomy. Left cardiac stimulator with leads. Atherosclerotic vascular disease. IMPRESSION: Small-moderate bibasilar pneumonia-effusion, new compared with prior exam. Recommend CR/CT surveillance including at 7-12 weeks following initiation of any clinically warranted therapy.
[2018-11-08] MEDS ORDERED: FUROSEMIDE INJ/PF 20 MG/2 ML SDV IV ONE (04:33)
[2018-11-08] MEDS ORDERED: MAG HYDROX/AL HYDROX/SIMETH SUSP 30 ML UDCUP PO PRN (05:05)
[2018-11-08] MEDS ORDERED: ENALAPRILAT DIHYDRATE INJ/PF 1.25 MG/1 ML SDV IV PRN (05:05)
[2018-11-08] MEDS ORDERED: MAGNESIUM HYDROXIDE SUSP 30 ML UDCUP PO PRN (05:05)
[2018-11-08] MEDS: POTASSIUM CHLORIDE 10 MEQ CAPSULE.ER PO SCH ×3 (06:28→22:18)
--- NOTE | 2018-11-08 07:02 | PDOC H&P ---
History of Present Illness Admission Date/PCP: 11/08/18 05:27 VIRAJ MAXWELL MD Patient complains of: Short of breath History of Present Illness: VALE SOTO is a 77 year old female with a past medical history of congestive heart failure with an ejection fraction of 25%. Presents with shortness of breath, chest tightness and orthopnea. Nonproductive cough p rompting evaluation emergency room where she is found to have oxygen saturation of 88% on room air, hemoglobin of 10 and a BNP of 35,000. She admits compliance with medication though is unaware of the fluid restriction. In the emergency room after receiving IV Lasix she has had some uresis and improvement of symptoms. Past Medical History Cardiac Medical History: Reports: Coronary Artery Disease, Myocardial Infarction Endocrine Medical History: Reports: Diabetes Mellitus Type 2 Psychiatric Medical History: Denies: Depression Past Surgical History Past Surgical History: Reports: Cardiac Catheterization, Pacemaker - AICD combination Social History Information Source: Patient, Emergency Med Personnel, [facility] Records Lives with: Family Smoking Status: Unknown if Ever Smoked Frequency of Alcohol Use: None Hx Recreational Drug Use: No Drugs: None Hx Prescription Drug Abuse: No - Advance Directive Resuscitation Status: Full Code Family History Family History: Hypertension Parental Family History Reviewed: Yes Children Family History Reviewed: Yes Sibling(s) Family History Reviewed.: Yes Medication/Allergy Home Medications: Metformin HCl [Glucophage 500 mg Tablet] 1,000 mg PO BID 08/18/18 Multivitamin [One-Daily Multi-Vitamin] 1 each PO DAILY 08/18/18 Acetaminophen [Tylenol 325 mg Tablet] 650 mg PO Q4HP PRN tablet 09/01/18 Aspirin [Aspirin 81 mg Chewable Tablet] 81 mg PO DAILY #60 tab.chew 09/01/18 Atorvastatin Calcium [Lipitor 20 mg Tablet] 20 mg PO QHS #30 tablet 09/01/18 Docusate Sodium [Colace 100 mg Capsule] 100 mg PO BID #0 capsule 09/01/18 Losartan Potassium [Cozaar] 25 mg PO DAILY #30 tablet 09/01/18 Metoprolol Succinate [Toprol Xl 25 mg Tab.sr] 25 mg PO Q12 #60 tab.sr.24h 09/01/18 Rivaroxaban [Xarelto 10 mg Tablet] 10 mg PO WSUPPER #15 tablet 09/01/18 Tamsulosin HCl [Flomax 0.4 mg Cap.sr] 0.4 mg PO PCSUPPER #30 cap.sr.24h 09/01/18 Allergies/Adverse Reactions: No Known Allergies Allergy (Verified 08/17/18 19:38) Review of Systems Constitutional: ABSENT: chills, fever(s), headache(s), weight gain, weight loss Eyes: ABSENT: visual disturbances Ears: ABSENT: hearing changes Cardiovascular: ABSENT: chest pain, dyspnea on exertion, edema, orthropnea, palpitations Respiratory: ABSENT: cough, hemoptysis Gastrointestinal: ABSENT: abdominal pain, constipation, diarrhea, hematemesis, hematochezia, nausea, vomiting Genitourinary: ABSENT: dysuria, hematuria Musculoskeletal: ABSENT: joint swelling Integumentary: ABSENT: rash, wounds Neurological: ABSENT: abnormal gait, abnormal speech, confusion, dizziness, focal weakness, syncope Psychiatric: ABSENT: anxiety, depression, homidical ideation, suicidal ideation Endocrine: ABSENT: cold intolerance, heat intolerance, polydipsia, polyuria Hematologic/Lymphatic: ABSENT: easy bleeding, easy bruising Physical Exam Vital Signs: Temp Pulse Resp BP Pulse Ox 98.3 F 22 H 147/86 H 96 11/08/18 06:27 11/08/18 05:01 11/08/18 06:01 11/08/18 06:50 Intake & Output 11/06/18 11/07/18 11/08/18 11:59 11:59 11:59 Weight 58.967 kg Respiratory exam: PRESENT: accessory muscle use, crackles, symmetrical, tachypnea. ABSENT: rhonchi, wheezes Cardiovascular exam: PRESENT: RRR. ABSENT: diastolic murmur, rubs, systolic murmur Pulses: PRESENT: normal dorsalis pedis pul Vascular exam: PRESENT: normal capillary refill GI/Abdominal exam: PRESENT: normal bowel sounds, soft. ABSENT: distended, guarding, mass, organolmegaly, rebound, tenderness Rectal exam: PRESENT: deferred Extremities exam: PRESENT: +1 edema Neurological exam: PRESENT: alert, awake, oriented to person, oriented to place, oriented to time, oriented to situation, CN II-XII grossly intact. ABSENT: motor sensory deficit Psychiatric exam: PRESENT: appropriate affect, normal mood. ABSENT: homicidal ideation, suicidal ideation Skin exam: PRESENT: dry, intact, warm. ABSENT: cyanosis, rash Results Laboratory Results: 11/08/18 03:10 03/26/19 03:10 11/08/18 11/08/18 11/08/18 03:10 03:10 03:10 WBC 6.8 RBC 3.29 L Hgb 10.0 L Hct 29.2 L MCV 89 MCH 30.3 MCHC 34.2 RDW 16.2 H Plt Count 196 Seg Neutrophils % 56.4 Lymphocytes % 31.4 Monocytes % 7.1 Eosinophils % 3.7 Basophils % 1.4 Absolute Neutrophils 3.8 Absolute Lymphocytes 2.1 Absolute Monocytes 0.5 Absolute Eosinophils 0.2 Absolute Basophils 0.1 Sodium 139.4 Potassium 3.8 Chloride 107 Carbon Dioxide 20 L Anion Gap 12 BUN 17 Creatinine 0.98 Est GFR ( Amer) > 60 Est GFR (Non-Af Amer) 55 L Glucose 133 H Calcium 9.7 Iron 33.9 L Total Bilirubin 1.7 H AST 17 ALT 16 Alkaline Phosphatase 62 Total Protein 6.0 L Albumin 3.5 11/08/18 03:10 Troponin I 0.024 NT-Pro-B Natriuret Pep 85709 H Impressions: Chest X-Ray 11/08/18 03:21 IMPRESSION: Small-moderate bibasilar pneumonia-effusion, new compared with prior exam. Recommend CR/CT surveillance including at 7-12 weeks following initiation of any clinically warranted therapy. Assessment and Plan - Diagnosis (1) Anemia Is this a current diagnosis for this admission?: Yes Plan: Likely contributing to a high output state. Follow-up labs. (2) Congestive heart failure Is this a current diagnosis for this admission?: Yes Plan: CHF care set, IV Lasix. Follow-up education with caregivers. (3) Diabetes Is this a current diagnosis for this admission?: Yes Plan: A1c of 6.0. No insulin ordered. - Inpatient Certification Medical Necessity: Need Close Monitoring Due to Risk of Patient Decompensation
--- NOTE | 2018-11-08 09:48 | EKG REPORT ---
SEVERITY:- ABNORMAL ECG - ATRIAL-SENSED VENTRICULAR-PACED RHYTHM : Confirmed by: Martha Zheng MD 08-Nov-2018 09:48:02
[2018-11-08 10:15] LABS: CREATINE KINASE MB 0.61 ng/mL (<4.55); TROPONIN I 0.023 ng/mL
[2018-11-08] MEDS: DOCUSATE SODIUM 100 MG CAPSULE PO SCH ×2 (11:02→17:54)
[2018-11-08] MEDS: FUROSEMIDE INJ/PF 40 MG/4 ML SDV IV SCH ×2 (11:02→22:20)
[2018-11-08] MEDS: ASPIRIN 81 MG TABLET, CHEWABLE PO SCH (11:02)
[2018-11-08] MEDS: METOPROLOL SUCCINATE 25 MG TAB.SR.24H PO SCH ×2 (11:02→22:19)
[2018-11-08] MEDS: LOSARTAN POTASSIUM 25 MG TABLET PO SCH (11:02)
[2018-11-08] MEDS: NITROGLYCERIN 5 MG (0.2 MG/HR) PATCH.TD24 TD SCH (11:03)
[2018-11-08 16:15] LABS: CREATINE KINASE MB 0.42 ng/mL (<4.55); TROPONIN I 0.022 ng/mL
[2018-11-08] MEDS: TAMSULOSIN HCL 0.4 MG CAP.SR.24H PO SCH (17:54)
[2018-11-08] MEDS: RIVAROXABAN 10 MG TABLET PO SCH (17:54)
--- NOTE | 2018-11-08 18:32 | Progress Note ---
Provider Note Provider Note: This is 77 years old female patient who presented with shortness of breath due to exacerbation of her underlying systolic congestive heart failure. Her ejection fraction is 25%. And her blood work shows markedly elevated BNP of 35,000. Currently patient has been on IV Lasix and cardioprotective medication. I seen patient resting in bed. I reviewed her labs. Accept this patient and will be her primary attending.
[2018-11-08] MEDS ORDERED: DEXTROSE 40% GEL 15 GM TUBE X 2 PO PRN (20:00)
[2018-11-08] MEDS ORDERED: DEXTROSE 50%-WATER SYRINGE 12.5 GM/25 ML DOSE IV PRN (20:00)
[2018-11-08] MEDS ORDERED: DEXTROSE 50%-WATER SYRINGE 25 GM/50 ML DOSE IV PRN (20:00)
[2018-11-08] MEDS ORDERED: DEXTROSE 40% GEL 15 GM TUBE PO PRN (20:00)
[2018-11-08] MEDS ORDERED: GLUCAGON,HUMAN RECOMB 1 MG INJ IM PRN (20:00)
[2018-11-08 21:33] LABS: CREATINE KINASE MB 0.34 ng/mL (<4.55); TROPONIN I 0.022 ng/mL
[2018-11-08] MEDS: ATORVASTATIN CALCIUM 20 MG TABLET PO SCH (22:19)
[2018-11-08] MEDS: INSULIN LISPRO 100 UNIT/ML 3 ML VIAL SUBCUT SCH (22:20)
[2018-11-09] MEDS: ACETAMINOPHEN 325 MG TABLET PO PRN (06:12)
[2018-11-09 08:01] LABS: ABSOLUTE BASOPHILS # (AUTO) 0.1 10^3/uL (0.0-0.2); ABSOLUTE EOSINOPHILS # (AUTO) 0.1 10^3/uL (0.0-0.6); ABSOLUTE LYMPHOCYTES (AUTO) 1.6 10^3/uL (0.5-4.7); ABSOLUTE MONOCYTES (AUTO) 0.5 10^3/uL (0.1-1.4); ABSOLUTE NEUT (AUTO) 4.9 10^3/uL (1.7-8.2); BASOPHILS % (AUTO) 1.1 % (0-2); HEMOGLOBIN 11.6 g/dL (12.0-15.5); LYMPHOCYTES % (AUTO) 22.4 % (13-45); MEAN CORPUSCULAR HEMOGLOBIN 30.2 pg (27.0-33.4); MEAN CORPUSCULAR HGB CONC 34.2 g/dL (32.0-36.0); MEAN CORPUSCULAR VOLUME 88 fl (80-97); MONOCYTES % (AUTO) 6.8 % (3-13); PLATELET COUNT 208 10^3/uL (150-450); RED BLOOD COUNT 3.85 10^6/uL (3.72-5.28); RED CELL DISTRIBUTION WIDTH 15.7 % (11.5-14.0); SEGMENTED NEUTROPHILS % (AUTO) 68.7 % (42-78); TOTAL CELLS COUNTED % (AUTO) 100 %; WHITE BLOOD COUNT 7.2 10^3/uL (4.0-10.5)
[2018-11-09 08:16] LABS: ANION GAP 10 (5-19); BLOOD UREA NITROGEN 22 mg/dL (7-20); CALCIUM 10.1 mg/dL (8.4-10.2); CARBON DIOXIDE 25 mmol/L (22-30); CHLORIDE 104 mmol/L (98-107); GLUCOSE 213 mg/dL (75-110); POTASSIUM 5.5 mmol/L (3.6-5.0); SODIUM 138.9 mmol/L (137-145)
[2018-11-09] MEDS: POTASSIUM CHLORIDE 10 MEQ CAPSULE.ER PO SCH (09:29)
[2018-11-09] MEDS: ASPIRIN 81 MG TABLET, CHEWABLE PO SCH (09:30)
[2018-11-09] MEDS: DOCUSATE SODIUM 100 MG CAPSULE PO SCH ×2 (09:32→18:57)
[2018-11-09] MEDS: INSULIN LISPRO 100 UNIT/ML 3 ML VIAL SUBCUT SCH ×4 (09:32→22:27)
[2018-11-09] MEDS: LOSARTAN POTASSIUM 25 MG TABLET PO SCH (09:37)
[2018-11-09] MEDS: NITROGLYCERIN 5 MG (0.2 MG/HR) PATCH.TD24 TD SCH (09:37)
[2018-11-09] MEDS: METOPROLOL SUCCINATE 25 MG TAB.SR.24H PO SCH ×2 (09:37→22:28)
[2018-11-09] MEDS ORDERED: FUROSEMIDE INJ/PF 40 MG/4 ML SDV IV ONE ×2 (12:00→17:00)
--- NOTE | 2018-11-09 15:10 | PDOC PROGRESS REPORT ---
Subjective Progress Note for:: 11/09/18 Subjective:: This is 77 years old female patient with past medical history of coronary artery disease, type II diabetic mellitus, hyperlipidemia, systolic congestive failure, hypertension, presented with shortness of breath due to exacerbation of her underlying systolic congestive heart failure. Her ejection fraction is 25%. And her blood work shows markedly elevated BNP of 35,000. Currently patient has been on IV Lasix and cardioprotective medication. I seen this patient resting in bed comfortably. She reports this her shortness of breath is improving. She asked me that when she is going to be discharged. Her BMP shows mild hyperkalemia with potassium of 5.5. I will check her BMP in a.m. Reason For Visit: ANEMIA HEART FAILURE Physical Exam Vital Signs: Temp Pulse Resp BP Pulse Ox 97.7 F 86 24 H 100/50 L 97 11/09/18 07:46 11/09/18 07:46 11/09/18 07:46 11/09/18 04:50 11/09/18 08:14 Intake & Output 11/08/18 11/09/18 11/10/18 06:59 06:59 06:59 Intake Total 500 Output Total 500 Balance 0 Weight 58.967 kg 49.6 kg General appearance: PRESENT: no acute distress Head exam: PRESENT: atraumatic Eye exam: PRESENT: conjunctiva pink Neck exam: ABSENT: carotid bruit, JVD, lymphadenopathy, thyromegaly Cardiovascular exam: PRESENT: RRR. ABSENT: diastolic murmur, rubs, systolic murmur GI/Abdominal exam: PRESENT: normal bowel sounds, soft. ABSENT: distended, guarding, mass, organolmegaly, rebound, tenderness Extremities exam: PRESENT: +1 edema Neurological exam: PRESENT: alert, awake Results Laboratory Results: 11/09/18 07:13 11/09/18 07:13 11/09/18 11/09/18 07:13 07:13 WBC 7.2 RBC 3.85 Hgb 11.6 L Hct 34.0 L MCV 88 MCH 30.2 MCHC 34.2 RDW 15.7 H Plt Count 208 Seg Neutrophils % 68.7 Lymphocytes % 22.4 Monocytes % 6.8 Eosinophils % 1.0 Basophils % 1.1 Absolute Neutrophils 4.9 Absolute Lymphocytes 1.6 Absolute Monocytes 0.5 Absolute Eosinophils 0.1 Absolute Basophils 0.1 Sodium 138.9 Potassium 5.5 H Chloride 104 Carbon Dioxide 25 Anion Gap 10 BUN 22 H Creatinine 1.22 Est GFR ( Amer) 52 L Est GFR (Non-Af Amer) 43 L Glucose 213 H Calcium 10.1 Magnesium 1.6 11/08/18 11/08/18 11/08/18 03:10 09:15 15:10 CK-MB (CK-2) 0.61 0.42 Troponin I 0.024 0.023 0.022 NT-Pro-B Natriuret Pep [id number] H 11/08/18 20:50 CK-MB (CK-2) 0.34 Troponin I 0.022 NT-Pro-B Natriuret Pep Impressions: Chest X-Ray 11/08/18 03:21 IMPRESSION: Small-moderate bibasilar pneumonia-effusion, new compared with prior exam. Recommend CR/CT surveillance including at 7-12 weeks following initiation of any clinically warranted therapy. Assessment and Plan - Diagnosis (1) Acute on chronic systolic CHF (congestive heart failure), NYHA class 3 Is this a current diagnosis for this admission?: Yes Plan: Patient is on Lasix, and cardioprotective medications. And she improved with her shortness of breath. (2) Normocytic anemia Is this a current diagnosis for this admission?: Yes Plan: Her H&H is stable. Etiology unclear. (3) Type 2 diabetes mellitus Is this a current diagnosis for this admission?: Yes Plan: Continue current regimen (4) Coronary artery disease Is this a current diagnosis for this admission?: Yes Plan: No anginal symptoms. (5) Hypertension Qualifiers: Hypertension type: essential hypertension Qualified Code(s): I10 - Essential (primary) hypertension Is this a current diagnosis for this admission?: Yes Plan: Continue home medication (6) Hyperlipidemia Qualifiers: Hyperlipidemia type: unspecified Qualified Code(s): E78.5 - Hyperlipidemia, unspecified Is this a current diagnosis for this admission?: Yes Plan: Continue home medication
[2018-11-09] MEDS: RIVAROXABAN 10 MG TABLET PO SCH (16:28)
[2018-11-09] MEDS: TAMSULOSIN HCL 0.4 MG CAP.SR.24H PO SCH (20:16)
[2018-11-09] MEDS ORDERED: FUROSEMIDE INJ/PF 40 MG/4 ML SDV IV SCH (22:00)
[2018-11-09] MEDS: ATORVASTATIN CALCIUM 20 MG TABLET PO SCH (22:26)
[2018-11-10] MEDS: ACETAMINOPHEN 325 MG TABLET PO PRN ×5 (01:28→22:08)
[2018-11-10 05:57] LABS: ANION GAP 11 (5-19); BLOOD UREA NITROGEN 30 mg/dL (7-20); CALCIUM 10.1 mg/dL (8.4-10.2); CARBON DIOXIDE 23 mmol/L (22-30); CHLORIDE 101 mmol/L (98-107); GLUCOSE 127 mg/dL (75-110)
[2018-11-10] MEDS: INSULIN LISPRO 100 UNIT/ML 3 ML VIAL SUBCUT SCH ×4 (09:14→22:07)
[2018-11-10] MEDS: LOSARTAN POTASSIUM 25 MG TABLET PO SCH (09:45)
[2018-11-10] MEDS: METOPROLOL SUCCINATE 25 MG TAB.SR.24H PO SCH (09:46)
[2018-11-10] MEDS: ASPIRIN 81 MG TABLET, CHEWABLE PO SCH (09:50)
[2018-11-10] MEDS: METFORMIN HCL 500 MG TABLET PO SCH (09:50)
[2018-11-10] MEDS: DOCUSATE SODIUM 100 MG CAPSULE PO SCH ×2 (09:51→17:22)
[2018-11-10] MEDS ORDERED: FUROSEMIDE INJ/PF 40 MG/4 ML SDV IV SCH (10:00)
[2018-11-10] MEDS ORDERED: FUROSEMIDE INJ/PF 20 MG/2 ML SDV IV SCH (10:00)
[2018-11-10] MEDS ORDERED: NORMAL SALINE 1000 ML 1,000 ML IV PRN (10:53)
[2018-11-10] MEDS: NITROGLYCERIN 5 MG (0.2 MG/HR) PATCH.TD24 TD SCH (12:04)
--- NOTE | 2018-11-10 14:39 | PDOC PROGRESS REPORT ---
Subjective Progress Note for:: 11/10/18 Subjective:: I seen patient resting in bed comfortably. Patient become hypotensive after she was given IV Lasix. Her blood pressure medications and Lasix are on hold. I started her on normal saline at rate of 75 mm/h. Her basic metabolic panel shows elevated creatinine level of 1.39. Probably due to volume contraction after IV Lasix. Reason For Visit: ANEMIA HEART FAILURE Physical Exam Vital Signs: Temp Pulse Resp BP Pulse Ox 98.3 F 87 18 98/57 L 98 11/10/18 11:47 11/10/18 11:47 11/10/18 11:47 11/10/18 11:47 11/10/18 11:47 Intake & Output 11/09/18 11/10/18 11/11/18 06:59 06:59 06:59 Intake Total 500 780 Output Total 500 Balance 0 780 Weight 49.6 kg 47.5 kg Results Laboratory Results: 11/09/18 07:13 11/10/18 04:33 11/10/18 04:33 Sodium 135.0 L Potassium 5.0 Chloride 101 Carbon Dioxide 23 Anion Gap 11 BUN 30 H Creatinine 1.39 H Est GFR ( Amer) 45 L Est GFR (Non-Af Amer) 37 L Glucose 127 H Calcium 10.1 11/08/18 11/08/18 11/08/18 03:10 09:15 15:10 CK-MB (CK-2) 0.61 0.42 Troponin I 0.024 0.023 0.022 NT-Pro-B Natriuret Pep 16824 H 11/08/18 20:50 CK-MB (CK-2) 0.34 Troponin I 0.022 NT-Pro-B Natriuret Pep Impressions: Chest X-Ray 11/08/18 03:21 IMPRESSION: Small-moderate bibasilar pneumonia-effusion, new compared with prior exam. Recommend CR/CT surveillance including at 7-12 weeks following initiation of any clinically warranted therapy. Assessment and Plan - Diagnosis (1) Acute kidney injury Is this a current diagnosis for this admission?: Yes Plan: I will cautiously hydrate her. I will hold Lasix and other nephrotoxic agents. I will check her BMP in a.m. (2) Acute on chronic systolic CHF (congestive heart failure), NYHA class 3 Is this a current diagnosis for this admission?: Yes Plan: Hold Lasix (3) Normocytic anemia Is this a current diagnosis for this admission?: Yes Plan: Her H&H is stable. Etiology unclear. (4) Type 2 diabetes mellitus Is this a current diagnosis for this admission?: Yes Plan: Continue current regimen (5) Coronary artery disease Is this a current diagnosis for this admission?: Yes Plan: No anginal symptoms. (6) Hypertension Qualifiers: Hypertension type: essential hypertension Qualified Code(s): I10 - Essential (primary) hypertension Is this a current diagnosis for this admission?: Yes Plan: Now hypotensive (7) Hyperlipidemia Qualifiers: Hyperlipidemia type: unspecified Qualified Code(s): E78.5 - Hyperlipidemia, unspecified Is this a current diagnosis for this admission?: Yes Plan: Continue home medication
[2018-11-10] MEDS: RIVAROXABAN 10 MG TABLET PO SCH (17:20)
[2018-11-10] MEDS: TAMSULOSIN HCL 0.4 MG CAP.SR.24H PO SCH (17:20)
[2018-11-10] MEDS: ATORVASTATIN CALCIUM 20 MG TABLET PO SCH (22:09)
[2018-11-11 04:23] LABS: ANION GAP 10 (5-19); BLOOD UREA NITROGEN 30 mg/dL (7-20); CALCIUM 9.6 mg/dL (8.4-10.2); CARBON DIOXIDE 22 mmol/L (22-30); CHLORIDE 105 mmol/L (98-107); GLUCOSE 125 mg/dL (75-110); POTASSIUM 4.2 mmol/L (3.6-5.0)
[2018-11-11] MEDS: INSULIN LISPRO 100 UNIT/ML 3 ML VIAL SUBCUT SCH (08:48)
[2018-11-11] MEDS: DOCUSATE SODIUM 100 MG CAPSULE PO SCH (09:12)
[2018-11-11] MEDS: METFORMIN HCL 500 MG TABLET PO SCH (09:16)
--- NOTE | 2018-11-11 09:27 | PDOC DISCHARGE SUMMARY ---
General - Admit/Disc Date/PCP Admission Date/Primary Care Provider: 11/08/18 05:27 Discharge Date: 11/11/18 - Discharge Diagnosis (1) Acute kidney injury Is this a current diagnosis for this admission?: Yes (2) Acute on chronic systolic CHF (congestive heart failure), NYHA class 3 Is this a current diagnosis for this admission?: Yes (3) Normocytic anemia Is this a current diagnosis for this admission?: Yes (4) Type 2 diabetes mellitus Is this a current diagnosis for this admission?: Yes (5) Coronary artery disease Is this a current diagnosis for this admission?: Yes (6) Hypertension Is this a current diagnosis for this admission?: Yes (7) Hyperlipidemia Is this a current diagnosis for this admission?: Yes - Additional Information Resuscitation Status: Full Code Discharge Diet: Cardiac, Diabetic Discharge Activity: Activity As Tolerated, Balance Activity w/Rest, Weigh Daily Home Medications: Aspirin [Ecotrin 81 mg EC Tablet] 81 mg PO DAILY 11/08/18 Atorvastatin Calcium [Lipitor 20 mg Tablet] 20 mg PO QHS 11/08/18 Losartan Potassium [Cozaar 25 mg Tablet] 25 mg PO DAILY 11/08/18 Meloxicam [Mobic] 7.5 mg PO DAILY 11/08/18 Metformin HCl [Glucophage] 1,000 mg PO DAILY 11/08/18 Metoprolol Succinate [Toprol Xl 25 mg Tab.sr] 25 mg PO Q12 11/08/18 Tamsulosin HCl [Flomax 0.4 mg Cap.sr] 0.4 mg PO PCSUPPER 11/08/18 History of Present Illness History of Present Illness: VALE SOTO is a 77 year old female with a past medical history of congestive heart failure with an ejection fraction of 25%. Presents with shortness of breath, chest tightness and orthopnea. Nonproductive cough prompting evaluation emergency room where she is found to have oxygen saturation of 88% on room air, hemoglobin of 10 and a BNP of 35,000. She admits compliance with medication though is unaware of the fluid restriction. In the emergency room after receiving IV Lasix she has had some uresis and improvement of symptoms. Physical Exam Vital Signs: Temp Pulse Resp BP Pulse Ox 98.1 F 86 17 121/73 99 11/11/18 07:26 11/11/18 07:26 11/11/18 07:11/11/18 07:26 11/11/18 07:26 Intake & Output 11/10/18 11/11/18 11/12/18 06:59 06:59 06:59 Intake Total 780 534 Balance 780 534 Weight 47.5 kg 48.9 kg Results Laboratory Results: 11/09/18 07:13 11/11/18 03:48 11/11/18 03:48 Sodium 137.0 Potassium 4.2 Chloride 105 Carbon Dioxide 22 Anion Gap 10 BUN 30 H Creatinine 1.29 H Est GFR ( Amer) 49 L Est GFR (Non-Af Amer) 40 L Glucose 125 H Calcium 9.6 11/08/18 11/08/18 11/08/18 03:10 09:15 15:10 CK-MB (CK-2) 0.61 0.42 Troponin I 0.024 0.023 0.022 NT-Pro-B Natriuret Pep [id number] H 11/08/18 20:50 CK-MB (CK-2) 0.34 Troponin I 0.022 NT-Pro-B Natriuret Pep Impressions: Chest X-Ray 11/08/18 03:21 IMPRESSION: Small-moderate bibasilar pneumonia-effusion, new compared with prior exam. Recommend CR/CT surveillance including at 7-12 weeks following initiation of any clinically warranted therapy. Qualifiers - * PATIENT BEING DISCHARGED WITH ANY OF THE FOLLOWING DIAGNOSIS: Heart Failure Reason(s) for not prescribing Overlap Therapy:: Not indicated Stroke Pt being discharged on Anti-thrombolytic therapy?: No Reason(s) for not prescribing Anti-thrombolytic therapy:: Not indicated Stroke Pt being discharged on Anti-coagulation therapy?: No Reason(s) for not prescribing Anti-coagulation therapy:: Not indicated Stroke Pt being discharged on Statins?: No Reason(s) for not prescribing Statins therapy:: Not indicated IA Pt being discharged on Aspirin therapy?: No Reason(s) for not prescribing Aspirin therapy:: Not indicated IA Pt being discharged on Statins?: No Reason(s) for not prescribing Statin therapy:: Not indicated IA Pt discharged ACEI/ARBS?: No Reason(s) for not prescribing ACEI/ARBS:: Not indicated HF Pt being discharged on ACEI for LVEF less than 40%?: Yes HF Pt being discharged on ARBS for LVEF less than 40%?: Yes HF Pt with Afib discharged with Warfarin?: No Reason(s) for not prescribing Warfarin:: Not indicated HF Pt discharged on evidence-based Beta Manuela:: Yes
[2018-11-11] MEDS ORDERED: ASPIRIN 81 MG TABLET, CHEWABLE PO SCH (10:00)
[2018-11-11 11:34] VITALS: BP 130/67
== END 2018-11-11 11:50 | disposition home health service (06) | DRG 292 ==
LOC: ER 03:00 → OBSVTOIN 05:27 → EH 05:27 → 5 07:47
PROVIDERS: ADMIT Internal Medicine; ATTEND Internal Medicine
DX: I11.0 Hypertensive heart disease with heart failure (principal); N17.9 Acute kidney failure, unspecified; I50.23 Acute on chronic systolic (congestive) heart failure; D64.9 Anemia, unspecified; I25.10 Atherosclerotic heart disease of native coronary artery without angina pectoris; E87.5 Hyperkalemia; E11.8 Type 2 diabetes mellitus with unspecified complications; I25.2 Old myocardial infarction; Z79.84 Long term (current) use of oral hypoglycemic drugs; Z79.82 Long term (current) use of aspirin; Z79.899 Other long term (current) drug therapy
CPT/HCPCS: 36415; 71045; 80048; 80053; 82553; 82962; 83540; 83735; 83880; 84443; 84484; 85025; 93005; 93010; 96374; 99285; J1815; J1940; J3490; J7030

== ENCOUNTER → 2018-12-08 | Outpatient (CLI) | payer MEDICARE, OTHER ==
--- NOTE | 2018-12-09 08:47 | XCELERA REPORT ---
[address] [address] Lower Extremity Arterial Evaluation Name: VALE SOTO Age: 77 yrs Gender: Female : 1940 Patient Status: Preadmit Patient Location: Study Date: 12/08/2018 08:14 AM Procedure: A color flow and duplex scan of the lower extremity arteries was performed bilaterally with velocity and waveform anaylsis. Ankle brachial indicies performed. Reason For Study: PVD Ordering Physician: PRABHJOT HINTON Performed By: Evan Robert Measurements and Calculations Right Left COLLECTIONS AGENT PSV 114.7 142.3 cm/sec Prox PFA PSV -103.1 -193.1cm/sec Prox SFA PSV 71.7 125.0 cm/sec Mid SFA PSV -58.7 -122.2cm/sec Dist SFA PSV -86.0 -69.4 cm/sec Prox Pop A PSV 65.9 54.2 cm/sec Prox FIDEL PSV 13.4 cm/sec Dist FIDEL PSV 18.7 -26.9 cm/sec Dist PLANT ATTENDANT OR ASSISTANT OPERATOR PSV 57.6 -61.3 cm/sec Anthony Pedis PSV 40.4 -60.1 cm/sec Right Side Arterial Evaluation Normal velocity and triphasic waveforms noted from the Common Femoral artery to the Posterior Tibial. Biphasic with low velocity in the Anterior Tibial. Retrograde Biphasic, low normal velocity in the Dorsalis Pedis arteries. Ankle Brachial index 1.31. Left Side Arterial Evaluation Normal velocity and triphasic waveforms noted from the Common Femoral artery to the infrageniculate vessels . Ankle Brachial index 1.23.. Interpretation Summary Mild hemodynamically significant lesions in the right lower extremity only, on duplex imaging, at rest. No hemodynamically significant lesions in the left lower extremity only, on duplex imaging, at rest. PAPI's are normal. Findings on the right suggest very well compensated lesion in the Anterior Tibial artery. : PRABHJOT HINTON > Mich Portillo
== END ==
LOC: SP 07:46
PROVIDERS: ATTEND Podiatrist Foot Surgery
DX: I73.9 Peripheral vascular disease, unspecified (principal)
CPT/HCPCS: 93922; 93925